=== PATIENT | male | born 1955 | race American Indian/Alaskan Native ===

== ENCOUNTER 2016-09-20 22:39 | Inpatient (IN) | payer MEDICAID ==
[2016-09-20] MEDS ORDERED: NACL 0.9% 1000 ML 1,000 ML IV ONE (23:42)
[2016-09-21 00:09] LABS: Mean Corpuscular HGB Conc 30 % (32-34); Mean Corpuscular Volume 75 fl (84-94); Platelet Count 322 K/mm3 (140-440); Red Blood Count 4.69 M/mm3 (3.65-5.03)
[2016-09-21 00:15] LABS: Hematocrit 35.3 % (35.5-45.6); Hemoglobin 10.6 gm/dl (11.8-15.2); Mean Corpuscular Hemoglobin 23 pg (28-32); Red Cell Distribution Width 26.1 % (13.2-15.2); White Blood Count 20.9 K/mm3 (4.5-11.0)
[2016-09-21 00:19] LABS: INR 1.26 (0.87-1.13)
[2016-09-21 00:20] LABS: Partial Thromboplastin Time 30.1 Sec. (24.2-36.6)
[2016-09-21 00:23] LABS: Albumin 2.7 g/dL (3.9-5); Albumin/Globulin Ratio 0.6 %; BUN/Creatinine Ratio 38.75; Bilirubin,Total 0.2 mg/dL (0.1-1.2); Calcium 9.3 mg/dL (8.4-10.2); Chloride 108.7 mmol/L (98-107); Potassium 3.8 mmol/L (3.6-5.0); Total Protein 7.4 g/dL (6.3-8.2)
[2016-09-21] MEDS ORDERED: NACL 0.9% 1000 ML 1,000 ML IV ONE ×2 (00:42→02:16)
[2016-09-21] MEDS ORDERED: ROCEPHIN/NS 2 GM/100 ML 2 GM/100 ML BAG IV ONE (00:56)
--- NOTE | 2016-09-21 01:03 | Emergency Department Report ---
HPI - General Chief Complaint: Nausea/Vomiting/Diarrhea Time Seen by Provider: 09/20/16 23:27 - HPI HPI: This is a 61-year-old -[place] male from [facility] in rehabilitation center, sent to ER for chest x-ray showing right lower lobe infiltrate, and a WBC of 18. Patient is aphasic, bedbound, with nephrostomy tube and G-tube. Patient has complicated medical history, has A. fib on anticoagulation with xarelto. [facility] also had some concern about patient having frequent diarrhea, but no vomiting. ED Past Medical Hx - Past Medical History Previous Medical History?: Yes Hx Diabetes: Yes Hx Renal Disease: Yes (End Stage Renal Disease) Hx Psychiatric Treatment: Yes (Mood disorders) Additional medical history: Unspecified Atrial Fibrillation, Constipation, Gastrostomy Tube, Nephrostomy Tube, Hyperlipidemia, Insomnia, Peg Tube, Nonverbal - Social History Smoking Status: Unknown if ever smoked - Medications Home Medications: Home Medications Medication Instructions Recorded Confirmed Last Taken Type Amiodarone [Cordarone 200 MG TAB] 200 mg PO DAILY 09/20/16 09/20/16 Unknown History Aspirin [Aspirin BABY CHEW TAB] 81 mg PO QDAY 09/20/16 09/20/16 Unknown History AtorvaSTATin [Lipitor] 20 mg PO QHS 09/20/16 09/20/16 Unknown History Bisacodyl [Dulcolax suppos] 10 mg DC QDAY 09/20/16 09/20/16 Unknown History Carvedilol [Coreg] 12.5 mg PO BID 09/20/16 09/20/16 Unknown History Cholestyramine (with Sugar) 378 gm PO BID 09/20/16 09/20/16 Unknown History [Cholestyramine Powder] Diltiazem [CarDIZEM] 60 mg PO QID 09/20/16 09/20/16 Unknown History Insulin Aspart [NovoLOG Flexpen] 0 units SQ ACHS 09/20/16 09/20/16 Unknown History Ipratropium [Atrovent] 0.5 mg IH Q6HRT 09/20/16 09/20/16 Unknown History Pantoprazole [Protonix] 40 mg PO QDAY 09/20/16 09/20/16 Unknown History Rivaroxaban [Xarelto] 10 mg PO QDAY 09/20/16 09/20/16 Unknown History Sertraline HCl [Zoloft] 50 mg PO DAILY 09/20/16 09/20/16 Unknown History metFORMIN [Glucophage] 500 mg PO QDAY 09/20/16 09/20/16 Unknown History traMADol [Ultram] 50 mg PO Q8HR PRN 09/20/16 09/20/16 Unknown History ED Review of Systems ROS: Stated complaint: POSSIBLE SEPSIS Other details as noted in HPI Comment: Unobtainable due to pts medical conditions Physical Exam - Physical Exam Vital Signs: Vital Signs 09/20/16 09/21/16 23:28 00:29 Temperature 97.8 F Pulse Rate 99 H Respiratory 20 20 Rate Blood Pressure 103/66 O2 Sat by Pulse 99 99 Oximetry Physical Exam: Gen. Awake Head atraumatic normocephalic Eyes PERR LA EOMI Chest irregularly irregular lungs clear bilaterally Abdomen soft nondistended, G-tube in place, D, C, I Back no point tenderness paravertebral tenderness Neuro unable to assess due to poor mentation Psych normal mood. ED Course Vital Signs 09/20/16 09/21/16 23:28 00:29 Temperature 97.8 F Pulse Rate 99 H Respiratory 20 20 Rate Blood Pressure 103/66 O2 Sat by Pulse 99 99 Oximetry ED Medical Decision Making - Lab Data Result diagrams: 09/20/16 23:42 09/20/16 23:42 Critical care attestation.: If time is entered above; I have spent that time in minutes in the direct care of this critically ill patient, excluding procedure time. ED Disposition Clinical Impression: Pneumonia Disposition: DC-09 OP ADMIT IP TO THIS HOSP Is pt being admited?: Yes Does the pt Need Aspirin: No Condition: Stable Instructions: Bacterial Pneumonia (ED) Referrals: REGINA BALLESTEROS MD [Primary Care Provider] - 3-5 Days
[2016-09-21 01:39] LABS: Anisocytosis 3+; Basophils % (Manual) 0 % (0.0-1.8); Blastocytes % (Manual) 0 %; Eosinophils % (Manual) 0 % (0.0-4.3); Hypochromasia 1+
[2016-09-21 01:40] LABS: Diff Status Complete; Elliptocytes Few; Platelet Estimate Consistent w Auto
[2016-09-21] MEDS ORDERED: FLAGYL/NS 1000 MG-200 ML 1,000 MG in VIAFLEX EMPTY CONTAINER 0 ML IV SCH (02:00)
[2016-09-21] MEDS: NACL 0.9% 1000 ML 1,000 ML IV SCH ×2 (02:29→14:35)
[2016-09-21] MEDS ORDERED: TYLENOL PO PRN (03:45)
[2016-09-21] MEDS ORDERED: ZOFRAN IV PRN (03:45)
--- NOTE | 2016-09-21 03:54 | History and Physical Report ---
History of Present Illness Date of examination: 09/21/16 History of present illness: This is a 61-year-old man from the residential, nonverbal, history of A. fib, diabetes, ?renal disease, mood disorder was sent to the emergency room for evaluation of fever. his white count on the second of this month was 13.5. He' s been having diarrhea since he's been in the emergency room .review of system is unobtainable PAST MEDICAL HISTORY:A. 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 Medications and Allergies Allergies Allergy/AdvReac Type Severity Reaction Status Date / Time No Known Allergies Allergy Unverified 09/20/16 23:22 Home Medications Medication Instructions Recorded Confirmed Last Taken Type Carvedilol [Coreg] 25 mg PO BID #60 tablet 11/25/14 05/26/16 1 Day Ago Rx Warfarin [Coumadin] 7.5 mg PO QDAY #30 tablet 11/25/14 05/26/16 1 Day Ago Rx metFORMIN [Glucophage] 500 mg PO QDAY #30 tab 11/25/14 05/27/16 1 Week Ago Rx Lisinopril/Hydrochlorothiazide 1 tab PO QDAY 11/05/15 05/26/16 1 Day Ago History [Zestoretic 20-12.5 mg] Sertraline HCl [Zoloft] 50 mg PO DAILY 11/05/15 05/26/16 1 Day Ago History amLODIPine [Norvasc] 5 mg PO DAILY 11/05/15 05/26/16 1 Day Ago History cloNIDine [Catapres] 0.2 mg PO BID 11/05/15 05/26/16 1 Day Ago History Aspirin [Aspirin TAB] 325 mg PO QDAY #30 tablet 06/01/16 Unknown Rx Bisacodyl [Dulcolax suppos] 10 mg SC QDAY PRN #30 supp.rect 06/01/16 Unknown Rx Carvedilol [Coreg] 25 mg PO BID #30 tablet 06/01/16 Unknown Rx Hydrochlorothiazide [HCTZ] 12.5 mg PO QDAY capsule 06/01/16 Unknown Rx Pantoprazole [Protonix TAB] 40 mg PO DAILY tablet 06/01/16 Unknown Rx Sertraline [Zoloft] 50 mg PO QDAY tablet 06/01/16 Unknown Rx Simvastatin [Zocor TAB] 40 mg PO QHS #30 tablet 06/01/16 Unknown Rx amLODIPine [Norvasc] 5 mg PO DAILY #30 tablet 06/01/16 Unknown Rx cloNIDine [Catapres] 0.2 mg PO BID #30 tablet 06/01/16 Unknown Rx metFORMIN [Glucophage] 500 mg PO QDDIAB tablet 06/01/16 Unknown Rx Amiodarone [Cordarone 200 MG TAB] 200 mg PO DAILY 09/20/16 09/20/16 Unknown History Aspirin [Aspirin BABY CHEW TAB] 81 mg PO QDAY 09/20/16 09/20/16 Unknown History AtorvaSTATin [Lipitor] 20 mg PO QHS 09/20/16 09/20/16 Unknown History Bisacodyl [Dulcolax suppos] 10 mg SC QDAY 09/20/16 09/20/16 Unknown History Carvedilol [Coreg] 12.5 mg PO BID 09/20/16 09/20/16 Unknown History Cholestyramine (with Sugar) 378 gm PO BID 09/20/16 09/20/16 Unknown History [Cholestyramine Powder] Diltiazem [CarDIZEM] 60 mg PO QID 09/20/16 09/20/16 Unknown History Insulin Aspart [NovoLOG Flexpen] 0 units SQ ACHS 09/20/16 09/20/16 Unknown History Ipratropium [Atrovent] 0.5 mg IH Q6HRT 09/20/16 09/20/16 Unknown History Pantoprazole [Protonix] 40 mg PO QDAY 09/20/16 09/20/16 Unknown History Rivaroxaban [Xarelto] 10 mg PO QDAY 09/20/16 09/20/16 Unknown History Sertraline HCl [Zoloft] 50 mg PO DAILY 09/20/16 09/20/16 Unknown History metFORMIN [Glucophage] 500 mg PO QDAY 09/20/16 09/20/16 Unknown History traMADol [Ultram] 50 mg PO Q8HR PRN 09/20/16 09/20/16 Unknown History Active Meds: Active Medications Acetaminophen (Tylenol) 650 mg PO Q4H PRN PRN Reason: Pain MILD(1-3)/Fever >100.5/NATARAJAN Enoxaparin Sodium (Lovenox) 30 mg SUB-Q QDAY LAILA Sodium Chloride (Nacl 0.9% 1000 Ml) 1,000 mls @ 100 mls/hr IV DIRECT LAILA Last Admin: 09/21/16 02:29 Dose: 100 mls/hr Sodium Chloride (Nacl 0.9% 1000 Ml) 1,000 mls @ 125 mls/hr IV ONCE ONE Stop: 09/21/16 10:15 Last Admin: 09/21/16 02:17 Dose: Not Given Metronidazole (Flagyl) 500 mg FEEDTUBE Q8H LAILA Ondansetron HCl (Zofran) 4 mg IV Q8H PRN PRN Reason: N/V unrelieved by Reglan Exam - Physical Exam Narrative exam: Gen. appearance: Patient lying in bed, no apparent distress HEENT: Normocephalic, atraumatic, pupils equally round and reactive to light, extraocular movement intact, and no sclericterus,. No JVD or thyromegaly or nodule,neck supple, no carotid bruit ,mucous membranes moist, no exudate or erythema Heart: S1, S2, regular rate and rhythm Lungs: Clear to auscultation bilaterally, breathing comfortable Abdomen: Positive bowel sounds, nontender, +peg, nondistended, no organomegaly Extremity: Nephrostomy tube, No edema, cyanosis, clubbing Skin: No rash, nodules, warm, dry Neuro nonverbal, difficult to assess - Constitutional Vitals: Temp Pulse Resp BP Pulse Ox 97.8 F 81 20 93/61 100 09/20/16 23:28 09/21/16 01:00 09/21/16 01:00 09/21/16 01:00 09/21/16 01:00 Results - Labs CBC & Chem 7: 09/22/16 03:58 09/22/16 03:58 Labs: Abnormal lab results 09/20/16 09/20/16 09/20/16 Range/Units 23:42 23:42 23:42 WBC 20.9 H (4.5-11.0) K/mm3 Hgb 10.6 L (11.8-15.2) gm/dl Hct 35.3 L (35.5-45.6) % MCV 75 L (84-94) fl MCH 23 L (28-32) pg MCHC 30 L (32-34) % RDW 26.1 H (13.2-15.2) % Seg Neuts % (Manual) 84.0 H (40.0-70.0) % Lymphocytes % (Manual) 7.0 L (13.4-35.0) % Seg Neutrophils # Man 17.6 H (1.8-7.7) K/mm3 PT (12.2-14.9) Sec. INR (0.87-1.13) Chloride 108.7 H (98-107) mmol/L Carbon Dioxide 8 L* (22-30) mmol/L BUN 93 H (9-20) mg/dL Creatinine 2.4 H (0.8-1.5) mg/dL Glucose 147 H (75-100) mg/dL Total Creatine Kinase 50 L (55-170) units/L Troponin T 0.037 H (0.00-0.029) ng/mL NT-Pro-B Natriuret Pep 2195 H (0-900) pg/mL Albumin 2.7 L (3.9-5) g/dL Triglycerides 164 H (2-149) mg/dL LDL Cholesterol Direct 43 L (50-130) mg/dL HDL Cholesterol 20 L (40-59) mg/dL // Range/Units 23:49 WBC (4.5-11.0) K/mm3 Hgb (11.8-15.2) gm/dl Hct (35.5-45.6) % MCV (84-94) fl MCH (28-32) pg MCHC (32-34) % RDW (13.2-15.2) % Seg Neuts % (Manual) (40.0-70.0) % Lymphocytes % (Manual) (13.4-35.0) % Seg Neutrophils # Man (1.8-7.7) K/mm3 PT 15.7 H (12.2-14.9) Sec. INR 1.26 H (0.87-1.13) Chloride (98-107) mmol/L Carbon Dioxide (22-30) mmol/L BUN (9-20) mg/dL Creatinine (0.8-1.5) mg/dL Glucose (75-100) mg/dL Total Creatine Kinase (55-170) units/L Troponin T (0.00-0.029) ng/mL NT-Pro-B Natriuret Pep (0-900) pg/mL Albumin (3.9-5) g/dL Triglycerides (2-149) mg/dL LDL Cholesterol Direct (50-130) mg/dL HDL Cholesterol (40-59) mg/dL - Imaging and Cardiology Chest x-ray: image reviewed Assessment and Plan Assessment SIRS Diarrhea, rule out C. difficile Abnormal cardiac enzymes ?Renal Disease A. fib Diabetes type 2 Mood Disorder Plan Admit to medicine Start gentle IV fluid, check stool for C. difficile Start Flagyl, follow cultures Check cardiac enzymes, echo Check fingersticks and initiate insulin sliding scale Obtain ultrasound of the kidneys Start DVT prophylaxis
[2016-09-21] MEDS ORDERED: FLAGYL FEEDTUBE SCH (04:00)
[2016-09-21 06:34] LABS: Creatine Kinase MB 1.6 ng/mL (0.0-4.0)
--- NOTE | 2016-09-21 08:28 | Admit Criteria Form ---
Admission Criteria Documentation: GASTROENTEROLOGY GRG Clinical Indications for Admission to Inpatient Care ([place]/ check or initial the applicable condition/criteria) Hospital admission is needed for appropriate care of the patient because of ANY ONE of the following: I. Suspected acute intra-abdominal process indicated by 1 or more of the following(1)(2)(3)(4)(5): a) Hemodynamic instability b) Peritoneal signs present (eg, abdominal rigidity, rebound tenderness, absent bowel sounds) c) Bowel obstruction suspected (eg, persistent vomiting, abdominal distention )(6)(7)(8) d) Suspected mesenteric ischemia or ischemic colitis(9)(10)(11) e) Other signs or symptoms of acute abdominal disease (eg, severe pain, free air)(12) II. Hemoperitoneum(13)(14) III. Ascites requiring acute treatment indicated by 1 or more of the following ( 15)(16)(17)(18) a) Hemodynamic instability b) Peritoneal signs present (e.g., abdominal rigidity, rebound tenderness, absent bowel sounds) c) Tachypnea, Hypoxemia,or other respiratory symptoms remain after emergency or observation level care (as appropriate) d) Suspected infected ascites as indicated by 1 or more of the following(19) (20) i) Fever ii) Vital sign abnormality iii) Abdominal pain or tenderness not relieved by paracentesis iv) Systemic signs of infection (e.g., elevated WBC count, fever) v) Ascitic fluid analysis consistent with infection ( e.g., elevated WBC count) IV. Severe liver disease indicated by 1 or more of the following (15)(16)(21)(22 )(23)(24)(25)(26)(27)(28) a) Acute hepatitis (e.g., transaminaselevel greater than 1000 IU/L) b) Acute elevation of prothrombintime to more than 50% above normal or INR greater than 1.5 c) Bilirubin greater than 20 mg/dL (342 micromoles/L) d) New-onset or worseninghepatic encephalopathy e) Acute elevation of serum ammonia level (eg, greater than 210 mcg/dL ( 150 micromoles/L)) f) Acute liver necrosis g) Vomiting that is severe of persistent h) Hemodynamic instability due to liver disease i) Acute renal failure j) Hepatic abscess k) Hepatic hydrothorax(29) l) Other indications of severe liver disease (e.g., persistent fever, ingestion of hepatotoxin)(30) V. Dehydration that is severe or persistent [X]-. Severe diarrhea indicated by 1 or more of the following (31)(32)(33)(34) (35) : a) High fever or other high-risk infection situation b) Intractable bloody diarrhea (e.g., more than 6 bloody stools per day) [X]- c) Suspected etiology (Clostridiumdifficile-associated diarrhea) that requires isolation or care not feasible in outpatient setting (36) d) Altered mental status that is severe or persistent e) Dehydration that is severe or persistent g) Peritoneal signs present (e.g., abdominal rigidity, rebound tenderness , absent bowel sounds) h) Abdominal ischemia suspected (9)(10)(11) i) Hemodynamic instability j) Severe electrolyte abnormalities requiring inpatient care k) Acute renal failure VII. Suspected toxic mike colon(4)(9) VIII. Severe dysphagia indicated by 1 or more of the following(37)(38) a) Suspected esophageal perforation or fistula(39) b) Suspected cause that requires inpatient care (e.g., caustic ingestion , severe esophagitis) (40)(41) c) Dehydration that is severe or persistent d) Inability to manage secretions or maintain hydration e) Hemodynamic instability f) Severe electrolyte abnormalities requiring inpatient care g) Acute renal failure IX. Vomiting and 1 or more of the following (42)(43)(44)(45)(46) a) High fever or other high-risk infection situation b) Altered mental status that is severe or persistent c) Dehydration that is severe or persistent d) Peritoneal signs present (e.g., abdominal rigidity, rebound tenderness, absent bowel sounds) e) Hemodynamic instability f) Severe electrolyte abnormalities requiring inpatient care g) Acute renal failure h) Bowel obstruction suspected (e.g., severe vomiting, abdominal distension) i) Vomiting that is severe or persistent X. Gastroparesis and 1 or more of the following(46)(47)(48)(49): a) Dehydration that is severe or persistent b) Severe electrolyte abnormalities requiring inpatient care c) Acute renal failure d) Vomiting that is severe or persistent XI Obstipation and 1 or more of the following(50)(51)(52)(53) a) Complication of fecal impaction (eg, stercoral ulceration, perforation, venous compression, obstructive uropathy) b) Fecal disimpaction by digital fragmentation or mechanical disimpaction unsuccessful XII Complication of gastrostomy or jejunostomy feeding tube(54)(55)(56) a) Luminal perforation b) Gastrocolonic fistula c) Cellulitis of surrounding area with failure of outpatient treatment d) Necrotizing fasciitis e) Peritonitis f) Gastric herniation or prolapse g) Ischemic necrosis of gastric wall ("buried bumper") h) Other complication of gastrostomy or jejunostomy unable to be resolved at lower level of care XII. Complications of transplanted liver indicated by 1 or more of the following (57)(58)(59): a) Acute graft rejection requiring inpatient management (eg, intravenous immuno suppression)(60)(61) b) Failure of transplanted liver as indicated by 1 or more of the following: i. Acute hepatitis (eg, transaminase level greater than 1000 International Units per liter (IU/L)) ii. Acute elevation of prothrombin time to more than 50% above baseline or INR greater than 1.5 iii. Bilirubin greater than 20 mg/dL (342 micromoles/L) iv. New-onset or worsening hepatic encephalopathy v. Acute elevation of serum ammonia level (eg, greater than 210 mcg/dL (150 micromoles/L)) vi. Acute liver necrosis c) Infection requiring inpatient management (eg, Hemodynamic instability, need for intravenous antimicrobial treatment) (62)(63)(64)(65)(66) d) Other complication of transplanted liver (eg, thrombosis, autoimmune hepatitis, variceal bleeding) requiring inpatient management (67)(68)(69) XII. Complications of transplanted pancreas indicated by 1 or more of the following (70) a) Acute graft rejection requiring inpatient management (eg, intravenous immunosuppression)(60)(71) b) Failure of transplanted pancreas as indicated by 1 or more of the following: i. Serum amylase greater than 3 times the upper limit of normal or baseline ii. Serum lipase greater than 3 times the upper limit of normal or baseline iii. Imaging findings consistent with pancreatic inflammation or necrosis c) Infection requiring inpatient management (eg, Hemodynamic instability, need for intravenous antimicrobial treatment) (64)(65)(66) d) Other complication of transplanted pancreas (eg, graft thrombosis, pancreatic duct stricture, anastomotic leak) requiring inpatient management (72 ) XIII. Gastroenterology condition,Symptom or finding for which emergency and observation care have failed or are not considered appropriate. See General criteria: Observation care, General Admission criteria or Pediatric General Admission criteria guideline as appropriate. The original [facility] content created by [facility] has been revised. The portions of the content which have been revised are identified through the use of italic text or in bold,and [facility] has neither reviewed nor approved the modified material. All other unmodified content is copyright [facility]. Please see references footnoted in the original [facility] edition 2017 Admission Criteria Met: Yes
--- NOTE | 2016-09-21 08:32 | XRay Report ---
PORTABLE CHEST INDICATION: Chest pain. Unspecified atrial fibrillation, constipation, gastrostomy tube, nephrostomy tube, hyperlipidemia, insomnia, PEG tube, end-stage renal disease. COMPARISON: None similar at this institution. FINDINGS: Portable, frontal chest radiographs, 2 images, demonstrate limited inspiration with mild exaggerated cardiomediastinal silhouette. Left lung base/hemidiaphragm fairly well seen on one of the views. Clear remainder lungs without pleural effusion or CHF as well. Slight aortic knob calcific lesions. EKG leads. Intact bones. CONCLUSION: No definite acute chest process, as described. Please also correlate clinically and follow on subsequent PA and lateral views, if available. Thank you for the opportunity to participate in this patient's care.
--- NOTE | 2016-09-21 09:49 | Ultrasound Report ---
ULTRASOUND RENAL BILATERAL HISTORY: Acute renal failure. TECHNIQUE: transabdominal ultrasound with color Doppler interrogation. FINDINGS: The right kidney measures 11.5 x 4.1 x 5.0cm. Right renal cortex: 1.4cm. The left kidney measures 10.1 x 5.6 x 5.9cm. Left renal cortex: 1.5cm. Scans of the kidneys show normal renal contours. There is normal central calyceal clustering and good preservation of the cortical thickness. There is no evidence of mass or hydronephrosis. A linear echogenic structure near the inferior pole of the right kidney is consistent with a right nephrostomy tube. The views of the bladder and the region of the ureters appear normal. IMPRESSION: Unremarkable renal ultrasound. No obstructive uropathy. Right nephrostomy tube is partially imaged.
[2016-09-21] MEDS ORDERED: LOVENOX SUB-Q SCH (10:00)
[2016-09-21] MEDS: FLAGYL FEEDTUBE SCH ×2 (11:14→17:36)
[2016-09-21 12:05] LABS: Creatine Kinase MB 1.7 ng/mL (0.0-4.0)
--- NOTE | 2016-09-21 13:17 | Progress Note ---
Assessment and Plan Assessment and plan: Admitted today by Dr. Kennedy Patient 61-year-old man from [facility] with a history of hypertension, A. fib, diabetes mellitus and questionable history of end-stage renal disease who presented to emergency department with diarrhea and was found Positive for C. difficile -Sepsis not SIRS present on admission due to C. difficile: Treatment with Flagyl History Interval history: Patient seen and examined. Follow up on current diagnosis/diarrhea. Overnight uneventful. Nonverbal. Imaging, old records, testing, labs, nursing notes reviewed. Hospitalist Physical - Physical exam Narrative exam: GEN: Chronically debilitated NAD, AWAKE, ALERT, but nonverbal HEENT: NCAT, PERRL, EOMI, OP CLEAR NECK: SUPPLE, NO THYROMEGALY, NO JVD, NO LAD CVS: RRR, NORMAL S1S2 LUNGS/CHEST: CTA B, NORMAL CHEST EXPANSION B, GOOD AIR ENTRY B ABD: SOFT, diffuse tenderness, nondistended GBS, NO REBOUND OR GUARDING EXT/SKIN: NO SIGNIFICANT EDEMA OR RASH MSK: FROM X 4 EXTREMITIES NEURO: CN 2-12 GROSSLY INTACT, NO NEW FOCAL DEFICITS PSY: CALM - Constitutional Vitals: Temp Pulse Resp BP Pulse Ox 99.2 F 84 24 123/66 100 09/21/16 07:59 09/21/16 07:59 09/21/16 07:59 09/21/16 07:59 09/21/16 07:59 Results - Labs CBC & Chem 7: 09/20/16 23:42 09/20/16 23:42 Labs: Laboratory Last Values WBC 20.9 K/mm3 (4.5-11.0) H 09/20/16 23:42 RBC 4.69 M/mm3 (3.65-5.03) 09/20/16 23:42 Hgb 10.6 gm/dl (11.8-15.2) L 09/20/16 23:42 Hct 35.3 % (35.5-45.6) L 09/20/16 23:42 MCV 75 fl (84-94) L 09/20/16 23:42 MCH 23 pg (28-32) L 09/20/16 23:42 MCHC 30 % (32-34) L 09/20/16 23:42 RDW 26.1 % (13.2-15.2) H 09/20/16 23:42 Plt Count 322 K/mm3 (140-440) 09/20/16 23:42 Add Manual Diff Complete 09/20/16 23:42 Total Counted 100 09/20/16 23:42 Seg Neuts % (Manual) 84.0 % (40.0-70.0) H 09/20/16 23:42 Band Neutrophils % 5.0 % 09/20/16 23:42 Lymphocytes % (Manual) 7.0 % (13.4-35.0) L 09/20/16 23:42 Reactive Lymphs % (Man) 0 % 09/20/16 23:42 Monocytes % (Manual) 4.0 % (0.0-7.3) 09/20/16 23:42 Eosinophils % (Manual) 0 % (0.0-4.3) 09/20/16 23:42 Basophils % (Manual) 0 % (0.0-1.8) 09/20/16 23:42 Metamyelocytes % 0 % 09/20/16 23:42 Myelocytes % 0 % 09/20/16 23:42 Promyelocytes % 0 % 09/20/16 23:42 Blast Cells % 0 % 09/20/16 23:42 Nucleated RBC % Not Reportable 09/20/16 23:42 Seg Neutrophils # Man 17.6 K/mm3 (1.8-7.7) H 09/20/16 23:42 Band Neutrophils # 1.0 K/mm3 09/20/16 23:42 Lymphocytes # (Manual) 1.5 K/mm3 (1.2-5.4) 09/20/16 23:42 Abs React Lymphs (Man) 0.0 K/mm3 09/20/16 23:42 Monocytes # (Manual) 0.8 K/mm3 (0.0-0.8) 09/20/16 23:42 Eosinophils # (Manual) 0.0 K/mm3 (0.0-0.4) 09/20/16 23:42 Basophils # (Manual) 0.0 K/mm3 (0.0-0.1) 09/20/16 23:42 Metamyelocytes # 0.0 K/mm3 09/20/16 23:42 Myelocytes # 0.0 K/mm3 09/20/16 23:42 Promyelocytes # 0.0 K/mm3 09/20/16 23:42 Blast Cells # 0.0 K/mm3 09/20/16 23:42 WBC Morphology Not Reportable 09/20/16 23:42 Hypersegmented Neuts Not Reportable 09/20/16 23:42 Hyposegmented Neuts Not Reportable 09/20/16 23:42 Hypogranular Neuts Not Reportable 09/20/16 23:42 Smudge Cells Not Reportable 09/20/16 23:42 Toxic Granulation Not Reportable 09/20/16 23:42 Toxic Vacuolation Not Reportable 09/20/16 23:42 Dohle Bodies Not Reportable 09/20/16 23:42 Pelger-Huet Anomaly Not Reportable 09/20/16 23:42 [place] Rods Not Reportable 09/20/16 23:42 Platelet Estimate Consistent w auto 09/20/16 23:42 Clumped Platelets Not Reportable 09/20/16 23:42 Plt Clumps, EDTA Not Reportable 09/20/16 23:42 Large Platelets Not Reportable 09/20/16 23:42 Giant Platelets Not Reportable 09/20/16 23:42 Platelet Satelliting Not Reportable 09/20/16 23:42 Plt Morphology Comment Not Reportable 09/20/16 23:42 RBC Morphology Not Reportable 09/20/16 23:42 Dimorphic RBCs Not Reportable 09/20/16 23:42 Polychromasia Not Reportable 09/20/16 23:42 Hypochromasia 1+ 09/20/16 23:42 Poikilocytosis Not Reportable 09/20/16 23:42 Anisocytosis 3+ 09/20/16 23:42 Microcytosis Not Reportable 09/20/16 23:42 Macrocytosis Not Reportable 09/20/16 23:42 Spherocytes Not Reportable 09/20/16 23:42 Pappenheimer Bodies Not Reportable 09/20/16 23:42 Sickle Cells Not Reportable 09/20/16 23:42 Target Cells Not Reportable 09/20/16 23:42 Tear Drop Cells Not Reportable 09/20/16 23:42 Ovalocytes Not Reportable 09/20/16 23:42 Helmet Cells Not Reportable 09/20/16 23:42 [place] Bodies Not Reportable 09/20/16 23:42 [place] Rings Not Reportable 09/20/16 23:42 [place] Cells Not Reportable 09/20/16 23:42 Bite Cells Not Reportable 09/20/16 23:42 Crenated Cell Not Reportable 09/20/16 23:42 Elliptocytes Few 09/20/16 23:42 Acanthocytes (Spur) Not Reportable 09/20/16 23:42 Rouleaux Not Reportable 09/20/16 23:42 Hemoglobin C Crystals Not Reportable 09/20/16 23:42 Schistocytes Not Reportable 09/20/16 23:42 Malaria parasites Not Reportable 09/20/16 23:42 Arcenio Bodies Not Reportable 09/20/16 23:42 Hem Pathologist Commnt No 09/20/16 23:42 PT 15.7 Sec. (12.2-14.9) H 09/20/16 23:49 INR 1.26 (0.87-1.13) H 09/20/16 23:49 APTT 30.1 Sec. (24.2-36.6) 09/20/16 23:49 Sodium 140 mmol/L (137-145) 09/20/16 23:42 Potassium 3.8 mmol/L (3.6-5.0) 09/20/16 23:42 Chloride 108.7 mmol/L (98-107) H 09/20/16 23:42 Carbon Dioxide 8 mmol/L (22-30) L* 09/20/16 23:42 Anion Gap 27 mmol/L 09/20/16 23:42 BUN 93 mg/dL (9-20) H 09/20/16 23:42 Creatinine 2.4 mg/dL (0.8-1.5) H 09/20/16 23:42 Estimated GFR 33 ml/min 09/20/16 23:42 BUN/Creatinine Ratio 38.75 % 09/20/16 23:42 Glucose 147 mg/dL (75-100) H 09/20/16 23:42 POC Glucose 137 (70-105) H 09/21/16 11:33 Lactic Acid 0.90 mmol/L (0.7-2.0) 09/21/16 01:03 Calcium 9.3 mg/dL (8.4-10.2) 09/20/16 23:42 Total Bilirubin 0.20 mg/dL (0.1-1.2) 09/20/16 23:42 AST 13 units/L (5-40) 09/20/16 23:42 ALT 13 units/L (7-56) 09/20/16 23:42 Alkaline Phosphatase 73 units/L (35-129) 09/20/16 23:42 Total Creatine Kinase 53 units/L (55-170) L 09/21/16 11:23 CK-MB (CK-2) 1.7 ng/mL (0.0-4.0) 09/21/16 11:23 CK-MB (CK-2) Rel Index 3.2 (0-4) 09/21/16 11:23 Troponin T 0.033 ng/mL (0.00-0.029) H 09/21/16 11:23 NT-Pro-B Natriuret Pep 2195 pg/mL (0-900) H 09/20/16 23:42 Total Protein 7.4 g/dL (6.3-8.2) 09/20/16 23:42 Albumin 2.7 g/dL (3.9-5) L 09/20/16 23:42 Albumin/Globulin Ratio 0.6 % 09/20/16 23:42 Triglycerides 164 mg/dL (2-149) H 09/20/16 23:42 Cholesterol 95 mg/dL (50-199) 09/20/16 23:42 LDL Cholesterol Direct 43 mg/dL (50-130) L 09/20/16 23:42 HDL Cholesterol 20 mg/dL (40-59) L 09/20/16 23:42 Cholesterol/HDL Ratio 4.75 % 09/20/16 23:42
[2016-09-21] MEDS: XARELTO PO SCH (14:48)
[2016-09-21] MEDS: BABY ASPIRIN PO SCH (14:48)
--- NOTE | 2016-09-21 16:49 | Consultation ---
History of Present Illness - Reason for Consult Consult date: 09/21/16 acute renal failure, chronic renal failure, metabolic acidosis Requesting physician: KRUPA KNOX - History of Present Illness This is a 61-year-old man from the group home, nonverbal, history of A. fib, diabetes, ?renal disease, mood disorder was sent to the emergency room for evaluation of fever. his white count on the second of this month was 13.5. He' s been having diarrhea since he's been in the emergency room .review of system is unobtainable PAST MEDICAL HISTORY:A. 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 tobacco, alcohol, drug Medications and Allergies Allergies Allergy/AdvReac Type Severity Reaction Status Date / Time No Known Allergies Allergy Unverified 09/20/16 23:22 Home Medications Medication Instructions Recorded Confirmed Last Taken Type Amiodarone [Cordarone 200 MG TAB] 200 mg PO DAILY 09/20/16 09/20/16 Unknown History Aspirin [Aspirin BABY CHEW TAB] 81 mg PO QDAY 09/20/16 09/20/16 Unknown History AtorvaSTATin [Lipitor] 20 mg PO QHS 09/20/16 09/20/16 Unknown History Bisacodyl [Dulcolax suppos] 10 mg RI QDAY 09/20/16 09/20/16 Unknown History Carvedilol [Coreg] 12.5 mg PO BID 09/20/16 09/20/16 Unknown History Cholestyramine (with Sugar) 378 gm PO BID 09/20/16 09/20/16 Unknown History [Cholestyramine Powder] Diltiazem [CarDIZEM] 60 mg PO QID 09/20/16 09/20/16 Unknown History Insulin Aspart [NovoLOG Flexpen] 0 units SQ ACHS 09/20/16 09/20/16 Unknown History Ipratropium [Atrovent] 0.5 mg IH Q6HRT 09/20/16 09/20/16 Unknown History Pantoprazole [Protonix] 40 mg PO QDAY 09/20/16 09/20/16 Unknown History Rivaroxaban [Xarelto] 10 mg PO QDAY 09/20/16 09/20/16 Unknown History Sertraline HCl [Zoloft] 50 mg PO DAILY 09/20/16 09/20/16 Unknown History metFORMIN [Glucophage] 500 mg PO QDAY 09/20/16 09/20/16 Unknown History traMADol [Ultram] 50 mg PO Q8HR PRN 09/20/16 09/20/16 Unknown History Active Meds: Active Medications Acetaminophen (Tylenol) 650 mg PO Q4H PRN PRN Reason: Pain MILD(1-3)/Fever >100.5/NATARAJAN Amiodarone HCl (Cordarone) 200 mg PO DAILY [facility] Aspirin (Baby Aspirin) 81 mg PO QDAY [facility] Last Admin: 09/21/16 14:48 Dose: 81 mg Atorvastatin Calcium (Lipitor) 20 mg PO QHS [facility] Bisacodyl (Dulcolax) 10 mg RI QDAY [facility] Carvedilol (Coreg) 12.5 mg PO BID [facility] Cholestyramine Resin (Questran) 4 gm PO BID [facility] Diltiazem HCl (Cardizem) 60 mg PO QID [facility] Sodium Bicarbonate 75 meq/ (Sodium Chloride) 1,075 mls @ 100 mls/hr IV DIRECT [facility] Ipratropium [place] (Atrovent) 0.5 mg IH Q6HRT [facility] Metformin HCl (Glucophage) 500 mg PO QDAY [facility] Metronidazole (Flagyl) 500 mg FEEDTUBE Q8H [facility] Last Admin: 09/21/16 11:14 Dose: 500 mg Ondansetron HCl (Zofran) 4 mg IV Q8H PRN PRN Reason: N/V unrelieved by Erna Pantoprazole Sodium (Protonix) 40 mg PO QDAY [facility] Pneumococcal Polyvalent Vaccine (Pneumovax 23) 0.5 ml IM .ONCE ONE Stop: 09/22/16 12:01 Rivaroxaban (Xarelto) 10 mg PO QDAY [facility] PRN Reason: Protocol Last Admin: 09/21/16 14:48 Dose: 10 mg Sertraline HCl (Zoloft) 50 mg PO QDAY [facility] Tramadol HCl (Ultram) 50 mg PO Q8HR PRN PRN Reason: Pain Exam - Vital Signs Vital signs: Vital Signs Temp Pulse Resp BP Pulse Ox 97.8 F 99 H 20 103/66 99 09/20/16 23:28 09/20/16 23:28 09/20/16 23:28 09/20/16 23:28 09/20/16 23:28 - Physical Exam Narrative exam: Gen. appearance: Patient lying in bed, no apparent distress HEENT: Normocephalic, atraumatic, pupils equally round and reactive to light, extraocular movement intact, and no sclericterus,. No JVD or thyromegaly or nodule,neck supple, no carotid bruit ,mucous membranes moist, no exudate or erythema Heart: S1, S2, regular rate and rhythm Lungs: Clear to auscultation bilaterally, breathing comfortable Abdomen: Positive bowel sounds, nontender, +peg, nondistended, no organomegaly Extremity: Nephrostomy tube, No edema, cyanosis, clubbing Skin: No rash, nodules, warm, dry Neuro nonverbal, difficult to assess Results - Lab Results 09/20/16 23:42 09/20/16 23:42 Most recent lab results Calcium 9.3 mg/dL (8.4-10.2) 09/20/16 23:42 Assessment and Plan Impression: * KATHARINE on CKD * obstructive uropathy-s/p nephrostomy tube * metabolic acidosis * azotemia * volume depletion * diarrhea * c diff * sepsis * pyuria Plan: * ua with cultures * daily lytes renal us noted, right nephrotomy in place * strict i/os * avoid nephrotoxins * renal diet * add bicarb gtt * iv abx * dc metformin * iv fluids * ? baseline, katharine likely due to volume depletion in the setting of obstructive renal disease
[2016-09-21] MEDS: CARDIZEM PO SCH ×2 (17:37→22:26)
[2016-09-21] MEDS: CORDARONE PO SCH (17:41)
[2016-09-21] MEDS ORDERED: NACL 0.45% 1000 ML 1,000 ML with SODIUM BICARBONATE 75 MEQ IV SCH (18:00)
[2016-09-21 18:45] LABS: Calcium 9.1 mg/dL (8.4-10.2); Chloride 116.7 mmol/L (98-107); Potassium 3.7 mmol/L (3.6-5.0)
[2016-09-21] MEDS ORDERED: VANCOMYCIN/NS 1 GM/250 ML 1 GM/250 ML BAG IV ONE (18:58)
[2016-09-21] MEDS ORDERED: ATROVENT IH SCH (20:00)
[2016-09-21] MEDS: QUESTRAN PO SCH (22:24)
[2016-09-21] MEDS: ULTRAM PO PRN (22:25)
[2016-09-21] MEDS: COREG PO SCH (22:27)
[2016-09-22] MEDS: DUONEB *Not for PRN Use IH SCH ×4 (02:03→19:47)
[2016-09-22] MEDS: FLAGYL FEEDTUBE SCH ×4 (02:10→18:43)
[2016-09-22 04:23] LABS: Hematocrit 31.1 % (35.5-45.6); Hemoglobin 9.7 gm/dl (11.8-15.2); Mean Corpuscular HGB Conc 31 % (32-34); Mean Corpuscular Volume 75 fl (84-94); Platelet Count 281 K/mm3 (140-440); Red Blood Count 4.16 M/mm3 (3.65-5.03); White Blood Count 16.1 K/mm3 (4.5-11.0)
[2016-09-22 04:24] LABS: Mean Corpuscular Hemoglobin 23 pg (28-32); Red Cell Distribution Width 26.3 % (13.2-15.2)
[2016-09-22 04:36] LABS: BUN/Creatinine Ratio 39.09; Calcium 9.1 mg/dL (8.4-10.2); Chloride 115.8 mmol/L (98-107); Potassium 3.5 mmol/L (3.6-5.0)
[2016-09-22 05:25] LABS: Anisocytosis 3+; Basophils % (Manual) 0 % (0.0-1.8); Blastocytes % (Manual) 0 %; Diff Status Complete; Eosinophils % (Manual) 0 % (0.0-4.3); Hypochromasia 1+; Platelet Estimate Consistent w Auto; Schistocytes Rare
--- NOTE | 2016-09-22 07:31 | XRay Report ---
ROUTINE CHEST, TWO VIEWS: HISTORY: Right lower lobe pneumonia, shortness of breath. Compared to 09/20/16. The trachea, heart, mediastinal contour, lung ramos and bony thorax are unremarkable. IMPRESSION: Unremarkable chest x-ray. No infiltrate is identified.
--- NOTE | 2016-09-22 08:24 | Progress Note ---
Assessment and Plan Impression: * KATHARINE on CKD * obstructive uropathy-s/p nephrostomy tube * metabolic acidosis * azotemia * volume depletion * diarrhea * c diff * sepsis * pyuria * hypernatremia Plan: * ua with cultures pending, continue iv abx, purulent discharge noted * daily lytes renal us noted, right nephrotomy in place * strict i/os * avoid nephrotoxins * renal diet * added bicarb gtt * iv abx * dc metformin * iv fluids * ? baseline, katharine likely due to volume depletion in the setting of obstructive renal disease Subjective Date of service: 09/22/16 Principal diagnosis: katharine Interval history: resting in bed today Objective - Exam Narrative Exam: Gen. appearance: Patient lying in bed, no apparent distress HEENT: Normocephalic, atraumatic, pupils equally round and reactive to light, extraocular movement intact, and no sclericterus,. No JVD or thyromegaly or nodule,neck supple, no carotid bruit ,mucous membranes moist, no exudate or erythema Heart: S1, S2, regular rate and rhythm Lungs: Clear to auscultation bilaterally, breathing comfortable Abdomen: Positive bowel sounds, nontender, +peg, nondistended, no organomegaly Extremity: Nephrostomy tube, No edema, cyanosis, clubbing Skin: No rash, nodules, warm, dry Neuro nonverbal, difficult to assess - Vital Signs Vital signs: Vital Signs - 12hr 09/21/16 09/21/16 09/21/16 21:24 22:00 22:25 Temperature Pulse Rate Pulse Rate [ Anterior Bilateral Throughout] Pulse Rate [ 62 Apical] Respiratory 20 20 Rate Respiratory 18 Rate [Abdomen] Respiratory Rate [Anterior Bilateral Throughout] Respiratory 18 Rate [ Generalized] Blood Pressure O2 Sat by Pulse 99 96 Oximetry 09/21/16 09/21/16 09/21/16 22:26 22:27 23:00 Temperature 98.3 F Pulse Rate 86 86 86 Pulse Rate [ Anterior Bilateral Throughout] Pulse Rate [ Apical] Respiratory 18 Rate Respiratory Rate [Abdomen] Respiratory Rate [Anterior Bilateral Throughout] Respiratory Rate [ Generalized] Blood Pressure 138/68 138/68 136/68 O2 Sat by Pulse 100 Oximetry 09/21/16 09/22/16 09/22/16 23:25 02:04 02:08 Temperature Pulse Rate Pulse Rate [ 67 71 Anterior Bilateral Throughout] Pulse Rate [ Apical] Respiratory 18 Rate Respiratory Rate [Abdomen] Respiratory 20 20 Rate [Anterior Bilateral Throughout] Respiratory Rate [ Generalized] Blood Pressure O2 Sat by Pulse Oximetry 09/22/16 09/22/16 04:00 07:53 Temperature 97.8 F 98.2 F Pulse Rate 91 H 76 Pulse Rate [ Anterior Bilateral Throughout] Pulse Rate [ Apical] Respiratory 20 24 Rate Respiratory Rate [Abdomen] Respiratory Rate [Anterior Bilateral Throughout] Respiratory Rate [ Generalized] Blood Pressure 116/64 130/62 O2 Sat by Pulse 98 Oximetry - Lab 09/22/16 03:58 09/22/16 03:58 Most recent lab results Calcium 9.1 mg/dL (8.4-10.2) 09/22/16 03:58
[2016-09-22] MEDS ORDERED: GLUCOPHAGE PO SCH (10:00)
[2016-09-22] MEDS: D5W IV SCH (10:33)
[2016-09-22] MEDS: SODIUM BICARBONATE IV SCH (10:33)
[2016-09-22] MEDS: KCL IV SCH (10:33)
[2016-09-22] MEDS: BABY ASPIRIN PO SCH (10:37)
[2016-09-22] MEDS: CORDARONE PO SCH (10:37)
[2016-09-22] MEDS: ZOLOFT PO SCH (10:37)
[2016-09-22] MEDS: PROTONIX PO SCH (10:37)
[2016-09-22] MEDS: COREG PO SCH ×2 (10:38→22:45)
[2016-09-22] MEDS: XARELTO PO SCH (10:39)
[2016-09-22] MEDS: QUESTRAN PO SCH ×2 (10:39→22:46)
[2016-09-22] MEDS: CARDIZEM PO SCH ×4 (10:39→22:44)
[2016-09-22] MEDS: DULCOLAX PR SCH (10:40)
[2016-09-22 11:13] LABS: Bacteria,Urine 2+ /HPF (Negative); Bilirubin,Urine NEG (Negative); Blood,Urine NEG (Negative); Ketones,Urine NEG (Negative); Leukocyte Esterase,Urine TR (Negative); Mucus,Urine FEW /HPF; Nitrite,Urine NEG (Negative); Urobilinogen,Urine < 2.0 mg/dL (<2.0)
[2016-09-22] MEDS ORDERED: PNEUMOVAX 23 IM ONE (12:00)
[2016-09-22] MEDS: ULTRAM PO PRN (13:25)
--- NOTE | 2016-09-22 14:33 | Progress Note ---
Assessment and Plan Assessment and plan: Patient 61-year-old man from [facility] with a history of hypertension, A. 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 difficile colitis. -Sepsis instead of SIRS present on admission due to C. difficile: Treatment with Flagyl -ARF/CKD 3 due to vasomotor nephropathy, poa, ?baseline: Renal is following -Afib: consulted Cardiology, on Xarelto, echocardiogram pending -Diabetes mellitus type 2: Sliding scale insulin, start tube feedings, consulted dietitian -DVT prophylaxis: on Xarelto -Malnutrition albumin 2.7, present on admission: Consult dietitian -Bradycardia with atrial fibrillation, echocardiogram pending, consulted cardiology -Pyruria with nephrostomy tube on the right, no history: placed on iv Vancomycin by Nephrology, complex medical decision because other abx will make c.diffe worse, will consult ID History Interval history: Patient seen and examined. Follow up on current diagnosis/diarrhea. Overnight uneventful. Nonverbal. Imaging, old records, testing, labs, nursing notes reviewed. Finance Daphne at bedside. Hospitalist Physical - Physical exam Narrative exam: GEN: Chronically debilitated NAD, AWAKE, ALERT, but nonverbal HEENT: NCAT, PERRL, EOMI, OP CLEAR NECK: SUPPLE, NO THYROMEGALY, NO JVD, NO LAD CVS: irregular bradycardia, NORMAL S1S2 LUNGS/CHEST: CTA B, NORMAL CHEST EXPANSION B, GOOD AIR ENTRY B ABD: SOFT, diffuse tenderness, nondistended GBS, with PEG tube, NO REBOUND OR GUARDING EXT/SKIN: NO SIGNIFICANT EDEMA OR RASH MSK: Left hemiparesis NEURO: CN 2-12 GROSSLY INTACT, NO NEW FOCAL DEFICITS PSY: CALM - Constitutional Vitals: Temp Pulse Resp BP Pulse Ox 98.4 F 68 18 91/59 99 09/22/16 12:21 09/22/16 14:24 09/22/16 14:24 09/22/16 12:21 09/22/16 09:03 Results - Labs CBC & Chem 7: 09/22/16 03:58 09/22/16 03:58 Labs: Laboratory Last Values WBC 16.1 K/mm3 (4.5-11.0) H 09/22/16 03:58 RBC 4.16 M/mm3 (3.65-5.03) 09/22/16 03:58 Hgb 9.7 gm/dl (11.8-15.2) L 09/22/16 03:58 Hct 31.1 % (35.5-45.6) L 09/22/16 03:58 MCV 75 fl (84-94) L 09/22/16 03:58 MCH 23 pg (28-32) L 09/22/16 03:58 MCHC 31 % (32-34) L 09/22/16 03:58 RDW 26.3 % (13.2-15.2) H 09/22/16 03:58 Plt Count 281 K/mm3 (140-440) 09/22/16 03:58 Add Manual Diff Complete 09/22/16 03:58 Total Counted 100 09/22/16 03:58 Seg Neuts % (Manual) 76.0 % (40.0-70.0) H 09/22/16 03:58 Band Neutrophils % 2.0 % 09/22/16 03:58 Lymphocytes % (Manual) 10.0 % (13.4-35.0) L 09/22/16 03:58 Reactive Lymphs % (Man) 0 % 09/22/16 03:58 Monocytes % (Manual) 12.0 % (0.0-7.3) H 09/22/16 03:58 Eosinophils % (Manual) 0 % (0.0-4.3) 09/22/16 03:58 Basophils % (Manual) 0 % (0.0-1.8) 09/22/16 03:58 Metamyelocytes % 0 % 09/22/16 03:58 Myelocytes % 0 % 09/22/16 03:58 Promyelocytes % 0 % 09/22/16 03:58 Blast Cells % 0 % 09/22/16 03:58 Nucleated RBC % Not Reportable 09/22/16 03:58 Seg Neutrophils # Man 12.2 K/mm3 (1.8-7.7) H 09/22/16 03:58 Band Neutrophils # 0.3 K/mm3 09/22/16 03:58 Lymphocytes # (Manual) 1.6 K/mm3 (1.2-5.4) 09/22/16 03:58 Abs React Lymphs (Man) 0.0 K/mm3 09/22/16 03:58 Monocytes # (Manual) 1.9 K/mm3 (0.0-0.8) H 09/22/16 03:58 Eosinophils # (Manual) 0.0 K/mm3 (0.0-0.4) 09/22/16 03:58 Basophils # (Manual) 0.0 K/mm3 (0.0-0.1) 09/22/16 03:58 Metamyelocytes # 0.0 K/mm3 09/22/16 03:58 Myelocytes # 0.0 K/mm3 09/22/16 03:58 Promyelocytes # 0.0 K/mm3 09/22/16 03:58 Blast Cells # 0.0 K/mm3 09/22/16 03:58 WBC Morphology Not Reportable 09/22/16 03:58 Hypersegmented Neuts Not Reportable 09/22/16 03:58 Hyposegmented Neuts Not Reportable 09/22/16 03:58 Hypogranular Neuts Not Reportable 09/22/16 03:58 Smudge Cells Not Reportable 09/22/16 03:58 Toxic Granulation Not Reportable 09/22/16 03:58 Toxic Vacuolation Not Reportable 09/22/16 03:58 Dohle Bodies Not Reportable 09/22/16 03:58 Pelger-Huet Anomaly Not Reportable 09/22/16 03:58 [place] Rods Not Reportable 09/22/16 03:58 Platelet Estimate Consistent w auto 09/22/16 03:58 Clumped Platelets Not Reportable 09/22/16 03:58 Plt Clumps, EDTA Not Reportable 09/22/16 03:58 Large Platelets Not Reportable 09/22/16 03:58 Giant Platelets Not Reportable 09/22/16 03:58 Platelet Satelliting Not Reportable 09/22/16 03:58 Plt Morphology Comment Not Reportable 09/22/16 03:58 RBC Morphology Not Reportable 09/22/16 03:58 Dimorphic RBCs Not Reportable 09/22/16 03:58 Polychromasia Not Reportable 09/22/16 03:58 Hypochromasia 1+ 09/22/16 03:58 Poikilocytosis Not Reportable 09/22/16 03:58 Anisocytosis 3+ 09/22/16 03:58 Microcytosis Not Reportable 09/22/16 03:58 Macrocytosis Not Reportable 09/22/16 03:58 Spherocytes Not Reportable 09/22/16 03:58 Pappenheimer Bodies Not Reportable 09/22/16 03:58 Sickle Cells Not Reportable 09/22/16 03:58 Target Cells Not Reportable 09/22/16 03:58 Tear Drop Cells Not Reportable 09/22/16 03:58 Ovalocytes Not Reportable 09/22/16 03:58 Helmet Cells Not Reportable 09/22/16 03:58 [place] Bodies Not Reportable 09/22/16 03:58 [place] Rings Not Reportable 09/22/16 03:58 [place] Cells Not Reportable 09/22/16 03:58 Bite Cells Not Reportable 09/22/16 03:58 Crenated Cell Not Reportable 09/22/16 03:58 Elliptocytes Not Reportable 09/22/16 03:58 Acanthocytes (Spur) Not Reportable 09/22/16 03:58 Rouleaux Not Reportable 09/22/16 03:58 Hemoglobin C Crystals Not Reportable 09/22/16 03:58 Schistocytes Rare 09/22/16 03:58 Malaria parasites Not Reportable 09/22/16 03:58 Arcenio Bodies Not Reportable 09/22/16 03:58 Hem Pathologist Commnt No 09/22/16 03:58 PT 15.7 Sec. (12.2-14.9) H 09/20/16 23:49 INR 1.26 (0.87-1.13) H 09/20/16 23:49 APTT 30.1 Sec. (24.2-36.6) 09/20/16 23:49 Sodium 147 mmol/L (137-145) H 09/22/16 03:58 Potassium 3.5 mmol/L (3.6-5.0) L 09/22/16 03:58 Chloride 115.8 mmol/L (98-107) H 09/22/16 03:58 Carbon Dioxide 12 mmol/L (22-30) L 09/22/16 03:58 Anion Gap 23 mmol/L 09/22/16 03:58 BUN 86 mg/dL (9-20) H 09/22/16 03:58 Creatinine 2.2 mg/dL (0.8-1.5) H 09/22/16 03:58 Estimated GFR 37 ml/min 09/22/16 03:58 BUN/Creatinine Ratio 39.09 % 09/22/16 03:58 Glucose 80 mg/dL (75-100) 09/22/16 03:58 POC Glucose 95 (70-105) 09/22/16 11:42 Lactic Acid 0.90 mmol/L (0.7-2.0) 09/21/16 01:03 Calcium 9.1 mg/dL (8.4-10.2) 09/22/16 03:58 Total Bilirubin 0.20 mg/dL (0.1-1.2) 09/20/16 23:42 AST 13 units/L (5-40) 09/20/16 23:42 ALT 13 units/L (7-56) 09/20/16 23:42 Alkaline Phosphatase 73 units/L (35-129) 09/20/16 23:42 Total Creatine Kinase 53 units/L (55-170) L 09/21/16 11:23 CK-MB (CK-2) 1.7 ng/mL (0.0-4.0) 09/21/16 11:23 CK-MB (CK-2) Rel Index 3.2 (0-4) 09/21/16 11:23 Troponin T 0.033 ng/mL (0.00-0.029) H 09/21/16 11:23 NT-Pro-B Natriuret Pep 2195 pg/mL (0-900) H 09/20/16 23:42 Total Protein 7.4 g/dL (6.3-8.2) 09/20/16 23:42 Albumin 2.7 g/dL (3.9-5) L 09/20/16 23:42 Albumin/Globulin Ratio 0.6 % 09/20/16 23:42 Triglycerides 164 mg/dL (2-149) H 09/20/16 23:42 Cholesterol 95 mg/dL (50-199) 09/20/16 23:42 LDL Cholesterol Direct 43 mg/dL (50-130) L 09/20/16 23:42 HDL Cholesterol 20 mg/dL (40-59) L 09/20/16 23:42 Cholesterol/HDL Ratio 4.75 % 09/20/16 23:42 Urine Color Yellow (Yellow) 09/21/16 17:12 Urine Turbidity Clear (Clear) 09/21/16 17:12 Urine pH 6.0 (5.0-7.0) 09/21/16 17:12 Ur Specific [place] 1.016 (1.003-1.030) 09/21/16 17:12 Urine Protein 30 mg/dl mg/dL (Negative) 09/21/16 17:12 Urine Glucose (UA) Neg mg/dL (Negative) 09/21/16 17:12 Urine Ketones Neg mg/dL (Negative) 09/21/16 17:12 Urine Blood Neg (Negative) 09/21/16 17:12 Urine Nitrite Neg (Negative) 09/21/16 17:12 Urine Bilirubin Neg (Negative) 09/21/16 17:12 Urine Urobilinogen < 2.0 mg/dL (<2.0) 09/21/16 17:12 Ur Leukocyte Esterase Tr (Negative) 09/21/16 17:12 Urine WBC (Auto) 6.0 /HPF (0.0-6.0) 09/21/16 17:12 Urine RBC (Auto) 1.0 /HPF (0.0-6.0) 09/21/16 17:12 U Epithel Cells (Auto) < 1.0 /HPF (0-13.0) 09/21/16 17:12 Urine Bacteria (Auto) 2+ /HPF (Negative) 09/21/16 17:12 Urine Mucus Few /HPF 09/21/16 17:12 Urine Eosinophils None seen (None Seen) 09/21/16 17:12
[2016-09-22] MEDS ORDERED: PANCREAZE DR 10,500 UNIT FEEDTUBE PRN (14:47)
[2016-09-22] MEDS ORDERED: SODIUM BICARBONATE FEEDTUBE PRN (14:47)
[2016-09-22] MEDS ORDERED: SIMPLE SYRUP FEEDTUBE PRN ×2 (14:47)
[2016-09-22] MEDS ORDERED: VANCOMYCIN/NS 1 GM/250 ML 1 GM/250 ML BAG IV SCH (20:00)
[2016-09-23] MEDS: D5W IV SCH ×2 (00:24→11:02)
[2016-09-23] MEDS: SODIUM BICARBONATE IV SCH ×2 (00:24→11:02)
[2016-09-23] MEDS: KCL IV SCH ×2 (00:24→11:02)
[2016-09-23] MEDS: DUONEB *Not for PRN Use IH SCH ×4 (02:35→20:40)
[2016-09-23] MEDS: FLAGYL FEEDTUBE SCH ×3 (03:31→18:24)
[2016-09-23 05:09] LABS: Hemoglobin 9.6 gm/dl (11.8-15.2); Mean Corpuscular HGB Conc 32 % (32-34); Mean Corpuscular Volume 72 fl (84-94); Platelet Count 282 K/mm3 (140-440); Red Blood Count 4.17 M/mm3 (3.65-5.03); White Blood Count 13.4 K/mm3 (4.5-11.0)
[2016-09-23 05:21] LABS: Chloride 113.7 mmol/L (98-107); Potassium 3.4 mmol/L (3.6-5.0)
[2016-09-23 05:23] LABS: Mean Corpuscular Hemoglobin 23 pg (28-32)
[2016-09-23 05:24] LABS: Red Cell Distribution Width 26.1 % (13.2-15.2)
[2016-09-23] MEDS: ULTRAM PO PRN ×2 (06:35→22:17)
--- NOTE | 2016-09-23 08:59 | Consultation ---
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 Patient is unabole to give a history due to aphasia. Report is taken from long-term staff and EMS. In the ED, temperature was 99, HR 99, BP 103/66, WBC 20.9K, creat 2.4, UA negative. Stool C diff PCR was positive. CXR negative. Renal US negative except for + PC nephrostomy tube. Right nephrostomy tube demonstrating purulence drainage. Microbiology: Blood cultures: 09/21 ngdt Urine cultures: Respiratory cultures: Wound cultures: Other: Stool C diff 09/21 positive Current Antibiotics: 09/21 Metronidazole Previous antibiootics: 09/21 Vancomycin IV x 1 Past History Past Medical History: atrial fib, diabetes, hypertension, hyperlipidemia, renal failure, stroke, other (obtructive uropathy s/p right NT) Medications and Allergies Allergies Allergy/AdvReac Type Severity Reaction Status Date / Time No Known Allergies Allergy Unverified 09/20/16 23:22 Home Medications Medication Instructions Recorded Confirmed Last Taken Type Carvedilol [Coreg] 25 mg PO BID #60 tablet 11/25/14 05/26/16 1 Day Ago Rx Warfarin [Coumadin] 7.5 mg PO QDAY #30 tablet 11/25/14 05/26/16 1 Day Ago Rx metFORMIN [Glucophage] 500 mg PO QDAY #30 tab 11/25/14 05/27/16 1 Week Ago Rx Lisinopril/Hydrochlorothiazide 1 tab PO QDAY 11/05/15 05/26/16 1 Day Ago History [Zestoretic 20-12.5 mg] Sertraline HCl [Zoloft] 50 mg PO DAILY 11/05/15 05/26/16 1 Day Ago History amLODIPine [Norvasc] 5 mg PO DAILY 11/05/15 05/26/16 1 Day Ago History cloNIDine [Catapres] 0.2 mg PO BID 11/05/15 05/26/16 1 Day Ago History Aspirin [Aspirin TAB] 325 mg PO QDAY #30 tablet 06/01/16 Unknown Rx Bisacodyl [Dulcolax suppos] 10 mg NM QDAY PRN #30 supp.rect 06/01/16 Unknown Rx Carvedilol [Coreg] 25 mg PO BID #30 tablet 06/01/16 Unknown Rx Hydrochlorothiazide [HCTZ] 12.5 mg PO QDAY capsule 06/01/16 Unknown Rx Pantoprazole [Protonix TAB] 40 mg PO DAILY tablet 06/01/16 Unknown Rx Sertraline [Zoloft] 50 mg PO QDAY tablet 06/01/16 Unknown Rx Simvastatin [Zocor TAB] 40 mg PO QHS #30 tablet 06/01/16 Unknown Rx amLODIPine [Norvasc] 5 mg PO DAILY #30 tablet 06/01/16 Unknown Rx cloNIDine [Catapres] 0.2 mg PO BID #30 tablet 06/01/16 Unknown Rx metFORMIN [Glucophage] 500 mg PO QDDIAB tablet 06/01/16 Unknown Rx Amiodarone [Cordarone 200 MG TAB] 200 mg PO DAILY 09/20/16 09/20/16 Unknown History Aspirin [Aspirin BABY CHEW TAB] 81 mg PO QDAY 09/20/16 09/20/16 Unknown History AtorvaSTATin [Lipitor] 20 mg PO QHS 09/20/16 09/20/16 Unknown History Bisacodyl [Dulcolax suppos] 10 mg NM QDAY 09/20/16 09/20/16 Unknown History Carvedilol [Coreg] 12.5 mg PO BID 09/20/16 09/20/16 Unknown History Cholestyramine (with Sugar) 378 gm PO BID 09/20/16 09/20/16 Unknown History [Cholestyramine Powder] Diltiazem [CarDIZEM] 60 mg PO QID 09/20/16 09/20/16 Unknown History Insulin Aspart [NovoLOG Flexpen] 0 units SQ ACHS 09/20/16 09/20/16 Unknown History Ipratropium [Atrovent] 0.5 mg IH Q6HRT 09/20/16 09/20/16 Unknown History Pantoprazole [Protonix] 40 mg PO QDAY 09/20/16 09/20/16 Unknown History Rivaroxaban [Xarelto] 10 mg PO QDAY 09/20/16 09/20/16 Unknown History Sertraline HCl [Zoloft] 50 mg PO DAILY 09/20/16 09/20/16 Unknown History metFORMIN [Glucophage] 500 mg PO QDAY 09/20/16 09/20/16 Unknown History traMADol [Ultram] 50 mg PO Q8HR PRN 09/20/16 09/20/16 Unknown History Active Meds: Active Medications Acetaminophen (Tylenol) 650 mg PO Q4H PRN PRN Reason: Pain MILD(1-3)/Fever >100.5/NATARAJAN Albuterol/Ipratropium (Duoneb *Not For Prn Use*) 1 ampul IH Q6HRT [facility] Last Admin: 09/23/16 08:36 Dose: 1 ampul Amiodarone HCl (Cordarone) 200 mg PO DAILY [facility] Last Admin: 09/22/16 10:37 Dose: 200 mg Lipase/Protease/Amylase (Pancreaze Dr 10,500 Unit) 1 each FEEDTUBE PRN PRN PRN Reason: For Clogged Feeding Tube Aspirin (Baby Aspirin) 81 mg PO QDAY [facility] Last Admin: 09/22/16 10:37 Dose: 81 mg Atorvastatin Calcium (Lipitor) 20 mg PO QHS [facility] Last Admin: 09/22/16 22:44 Dose: 20 mg Bisacodyl (Dulcolax) 10 mg NM QDAY [facility] Last Admin: 09/22/16 10:40 Dose: Not Given Carvedilol (Coreg) 12.5 mg PO BID [facility] Last Admin: 09/22/16 22:45 Dose: 12.5 mg Cholestyramine Resin (Questran) 4 gm PO BID [facility] Last Admin: 09/22/16 22:46 Dose: 4 gm Diltiazem HCl (Cardizem) 60 mg PO QID [facility] Last Admin: 09/22/16 22:44 Dose: 60 mg Potassium Chloride 20 meq/Sodium Bicarbonate 75 meq/Dextrose 1,085 mls @ 125 mls/hr IV DIRECT [facility] Last Admin: 09/23/16 00:24 Dose: 125 mls/hr Metronidazole (Flagyl) 500 mg FEEDTUBE Q8H [facility] Last Admin: 09/23/16 03:31 Dose: 500 mg Ondansetron HCl (Zofran) 4 mg IV Q8H PRN PRN Reason: N/V unrelieved by Reglan Pantoprazole Sodium (Protonix) 40 mg PO QDAY [facility] Last Admin: 09/22/16 10:37 Dose: 40 mg Rivaroxaban (Xarelto) 10 mg PO QDAY [facility] PRN Reason: Protocol Last Admin: 09/22/16 10:39 Dose: 10 mg Sertraline HCl (Zoloft) 50 mg PO QDAY [facility] Last Admin: 09/22/16 10:37 Dose: 50 mg Simple Syrup (Simple Syrup) 15 ml FEEDTUBE PRN PRN PRN Reason: Hypoglycemia Simple Syrup (Simple Syrup) 30 ml FEEDTUBE PRN PRN PRN Reason: Hypoglycemia Sodium Bicarbonate (Sodium Bicarbonate) 325 mg FEEDTUBE PRN PRN PRN Reason: For Clogged Feeding Tube Tramadol HCl (Ultram) 50 mg PO Q8HR PRN PRN Reason: Pain Last Admin: 09/23/16 06:35 Dose: 50 mg Review of Systems ROS unobtainable: due to mental status Physical Examination - Constitutional Vitals: Vital Signs Temp Pulse Resp BP Pulse Ox 98 F 75 16 136/73 100 09/23/16 04:00 09/23/16 08:36 09/23/16 08:36 09/23/16 04:00 09/22/16 21:16 Temperature -Last 24 Hours Temperature 98 F Temperature 97.8 F Temperature 97.7 F Temperature 98.4 F General appearance: Present: no acute distress, well-nourished - EENT Eyes: Present: PERRL ENT: hearing intact, clear oral mucosa - Neck Neck: Present: supple, normal ROM - Respiratory Respiratory effort: normal Respiratory: bilateral: CTA - Cardiovascular Rhythm: irregularly irregular Heart Sounds: Present: S1 & S2. Absent: rub, click - Extremities Extremities: pulses symmetrical, No edema Peripheral Pulses: within normal limits - Abdominal General gastrointestinal: Present: soft, non-tender, non-distended, normal bowel sounds, other (right sided PEG in place no erythema or drainage) Male genitourinary: Present: normal (right nephrostomy tube with purulent urine) - Integumentary Integumentary: Present: clear, warm, dry - Musculoskeletal Musculoskeletal: left sided weakness, other (aphasia ) - Neurologic Neurologic: CNII-XII intact, focal deficits Results - Labs CBC & Chem 7: 09/23/16 04:37 09/23/16 04:37 Labs: Abnormal lab results 09/22/16 09/22/16 09/23/16 Range/Units 16:28 23:51 04:37 WBC (4.5-11.0) K/mm3 Hgb (11.8-15.2) gm/dl Hct (35.5-45.6) % MCV (84-94) fl MCH (28-32) pg RDW (13.2-15.2) % Potassium 3.4 L (3.6-5.0) mmol/L Chloride 113.7 H (98-107) mmol/L Carbon Dioxide 13 L (22-30) mmol/L BUN 76 H (9-20) mg/dL Creatinine 2.0 H (0.8-1.5) mg/dL Glucose 155 H (75-100) mg/dL POC Glucose 137 H 146 H (70-105) 09/23/16 09/23/16 Range/Units 04:37 07:00 WBC 13.4 H (4.5-11.0) K/mm3 Hgb 9.6 L (11.8-15.2) gm/dl Hct 30.0 L (35.5-45.6) % MCV 72 L (84-94) fl MCH 23 L (28-32) pg RDW 26.1 H (13.2-15.2) % Potassium (3.6-5.0) mmol/L Chloride (98-107) mmol/L Carbon Dioxide (22-30) mmol/L BUN (9-20) mg/dL Creatinine (0.8-1.5) mg/dL Glucose (75-100) mg/dL POC Glucose 191 H (70-105) - Imaging and Cardiology Chest x-ray: report reviewed (negative) US - abdomen: report reviewed (normal no hydro or stones) Assessment and Plan Assessment: 1) Sepsis: Present on admission, manifested by low grade fever, leukocytosis, tachycardia. Etiology - secondary to acute C diff colitis. Improving. 2) Acute C diff colitis- moderate: improving 3) Right nephrostomy tube with what appears to be purulence: however UA negative. US kidney showed no kidney stones, no hydronephrosis. 4) Acute on CKD 5) Recent CVA with left hemiparesia and aphasia 6) A fib 7) Anemia Plan: -follow-up blood cultures -monitor leukocytosis which is improving -continue metronidazole 500 mg IV q 8 hours -call provider who placed right nephrostomy tube, US kidney showed no kidney stones, no hydronephrosis, can we remove it? -avoid broad-spectrum antibiotics as you are doing -add probiotics -upon discharge continue metronidazole 500 mg PO q 8 hours for total 10 days from 09/21 until 09/30/[address] Albert for your consultation, will f/u with you Agnes Rodriguez MD Infectious Diseases Specialist [facility] ([facility] M [phone] O [phone]
--- NOTE | 2016-09-23 09:39 | Progress Note ---
Assessment and Plan Impression: * KATHARINE on CKD * obstructive uropathy-s/p nephrostomy tube * metabolic acidosis * azotemia * volume depletion * diarrhea * c diff * sepsis * pyuria * hypernatremia Plan: * ua with cultures pending, continue iv abx, purulent discharge noted but better today * daily lytes renal us noted, right nephrotomy in place, * strict i/os * avoid nephrotoxins * renal diet * added bicarb gtt, co2 better * iv abx per id * dc'd metformin * iv fluids * ? baseline, katharine likely due to volume depletion in the setting of obstructive renal disease Subjective Date of service: 09/23/16 Principal diagnosis: katharine Interval history: resting in bed today Objective - Exam Narrative Exam: Gen. appearance: Patient lying in bed, no apparent distress HEENT: Normocephalic, atraumatic, pupils equally round and reactive to light, extraocular movement intact, and no sclericterus,. No JVD or thyromegaly or nodule,neck supple, no carotid bruit ,mucous membranes moist, no exudate or erythema Heart: S1, S2, regular rate and rhythm Lungs: Clear to auscultation bilaterally, breathing comfortable Abdomen: Positive bowel sounds, nontender, +peg, nondistended, no organomegaly Extremity: Nephrostomy tube, No edema, cyanosis, clubbing Skin: No rash, nodules, warm, dry Neuro nonverbal, difficult to assess - Vital Signs Vital signs: Vital Signs - 12hr 09/22/16 09/22/16 09/22/16 22:00 22:44 22:45 Temperature Pulse Rate 68 68 Pulse Rate [ Anterior Bilateral Throughout] Pulse Rate [ 68 Apical] Respiratory 16 Rate Respiratory Rate [Anterior Bilateral Throughout] Blood Pressure 120/63 120/63 O2 Sat by Pulse 100 Oximetry 09/23/16 09/23/16 09/23/16 04:00 07:20 08:36 Temperature 98 F 98.2 F Pulse Rate 75 66 Pulse Rate [ 75 Anterior Bilateral Throughout] Pulse Rate [ Apical] Respiratory 16 20 Rate Respiratory 16 Rate [Anterior Bilateral Throughout] Blood Pressure 136/73 113/56 O2 Sat by Pulse 96 Oximetry 09/23/16 08:47 Temperature Pulse Rate Pulse Rate [ 83 Anterior Bilateral Throughout] Pulse Rate [ Apical] Respiratory Rate Respiratory 16 Rate [Anterior Bilateral Throughout] Blood Pressure O2 Sat by Pulse Oximetry - Lab 09/23/16 04:37 09/23/16 04:37 Most recent lab results Calcium 9.0 mg/dL (8.4-10.2) 09/23/16 04:37
[2016-09-23] MEDS: CARDIZEM PO SCH ×2 (10:59→18:24)
[2016-09-23] MEDS: CORDARONE PO SCH (10:59)
[2016-09-23] MEDS: BABY ASPIRIN PO SCH (10:59)
[2016-09-23] MEDS: QUESTRAN PO SCH ×2 (10:59→22:17)
[2016-09-23] MEDS: ZOLOFT PO SCH (11:00)
[2016-09-23] MEDS: XARELTO PO SCH (11:00)
[2016-09-23] MEDS: COREG PO SCH (11:00)
[2016-09-23] MEDS: DULCOLAX PR SCH (11:01)
[2016-09-23] MEDS: MAGNESIUM SULFATE 2GM/50ML 2 GM/50 ML BAG IV ONE ×2 (11:02→18:22)
[2016-09-23] MEDS: PROTONIX PO SCH (11:05)
[2016-09-23] MEDS: KCL 10MEQ/100ML 10 MEQ/100 ML BAG IV SCH ×2 (11:08→13:03)
--- NOTE | 2016-09-23 12:46 | Progress Note ---
Assessment and Plan Assessment and plan: Patient 61-year-old man from [facility] with a history of hypertension, A. fib, diabetes mellitus2, CKD 3,CVA with aphasia/left hemiparesis with PEG tube and obstructive uropathy with right nephrostomy tube who presented to emergency department with diarrhea and was found to be have C. difficile colitis. -Sepsis instead of SIRS present on admission due to C. difficile: Treatment with Flagyl -ARF/CKD 3 due to vasomotor nephropathy, poa, ?baseline: Renal is following -Afib: consulted Cardiology, on Xarelto, echocardiogram pending -Diabetes mellitus type 2: Sliding scale insulin, start tube feedings, consulted dietitian -DVT prophylaxis: on Xarelto -Malnutrition albumin 2.7, present on admission: Consult dietitian -Bradycardia with atrial fibrillation, echocardiogram pending, consulted cardiology -Pyruria with nephrostomy tube on the right, no history: placed on iv Vancomycin by Nephrology, complex medical decision because other abx will make c.diffe worse, will consult ID==>continue present management and follow cultures. full code Still with loose stools. Will try reach Daphne to nieves more information regarding nephrostomy tube placement, ==>Placed at [facility] main [facility] about 1.5 months ago, she doesn't know doctor name. Disposition: continue inpatient care, anticipate discharge back to [facility] tomorrow. History Interval history: Patient seen and examined. Follow up on current diagnosis/diarrhea. Overnight uneventful. Nonverbal. Imaging, old records, testing, labs, nursing notes reviewed. Hospitalist Physical - Physical exam Narrative exam: GEN: Chronically debilitated NAD, AWAKE, ALERT, but nonverbal HEENT: NCAT, PERRL, EOMI, OP CLEAR NECK: SUPPLE, NO THYROMEGALY, NO JVD, NO LAD CVS: irregular bradycardia, NORMAL S1S2 LUNGS/CHEST: CTA B, NORMAL CHEST EXPANSION B, GOOD AIR ENTRY B ABD: SOFT, diffuse tenderness, nondistended GBS, with PEG tube, NO REBOUND OR GUARDING EXT/SKIN: NO SIGNIFICANT EDEMA OR RASH MSK: Left hemiparesis NEURO: CN 2-12 GROSSLY INTACT, NO NEW FOCAL DEFICITS PSY: CALM - Constitutional Vitals: Temp Pulse Resp BP Pulse Ox 98.2 F 120 H 16 120/68 96 09/23/16 07:20 09/23/16 10:59 09/23/16 08:47 09/23/16 11:00 09/23/16 07:20 General appearance: Present: no acute distress, well-nourished Results - Labs CBC & Chem 7: 09/23/16 04:37 09/23/16 04:37 Labs: Laboratory Last Values WBC 13.4 K/mm3 (4.5-11.0) H 09/23/16 04:37 RBC 4.17 M/mm3 (3.65-5.03) 09/23/16 04:37 Hgb 9.6 gm/dl (11.8-15.2) L 09/23/16 04:37 Hct 30.0 % (35.5-45.6) L 09/23/16 04:37 MCV 72 fl (84-94) L 09/23/16 04:37 MCH 23 pg (28-32) L 09/23/16 04:37 MCHC 32 % (32-34) 09/23/16 04:37 RDW 26.1 % (13.2-15.2) H 09/23/16 04:37 Plt Count 282 K/mm3 (140-440) 09/23/16 04:37 Add Manual Diff Complete 09/22/16 03:58 Total Counted 100 09/22/16 03:58 Seg Neuts % (Manual) 76.0 % (40.0-70.0) H 09/22/16 03:58 Band Neutrophils % 2.0 % 09/22/16 03:58 Lymphocytes % (Manual) 10.0 % (13.4-35.0) L 09/22/16 03:58 Reactive Lymphs % (Man) 0 % 09/22/16 03:58 Monocytes % (Manual) 12.0 % (0.0-7.3) H 09/22/16 03:58 Eosinophils % (Manual) 0 % (0.0-4.3) 09/22/16 03:58 Basophils % (Manual) 0 % (0.0-1.8) 09/22/16 03:58 Metamyelocytes % 0 % 09/22/16 03:58 Myelocytes % 0 % 09/22/16 03:58 Promyelocytes % 0 % 09/22/16 03:58 Blast Cells % 0 % 09/22/16 03:58 Nucleated RBC % Not Reportable 09/22/16 03:58 Seg Neutrophils # Man 12.2 K/mm3 (1.8-7.7) H 09/22/16 03:58 Band Neutrophils # 0.3 K/mm3 09/22/16 03:58 Lymphocytes # (Manual) 1.6 K/mm3 (1.2-5.4) 09/22/16 03:58 Abs React Lymphs (Man) 0.0 K/mm3 09/22/16 03:58 Monocytes # (Manual) 1.9 K/mm3 (0.0-0.8) H 09/22/16 03:58 Eosinophils # (Manual) 0.0 K/mm3 (0.0-0.4) 09/22/16 03:58 Basophils # (Manual) 0.0 K/mm3 (0.0-0.1) 09/22/16 03:58 Metamyelocytes # 0.0 K/mm3 09/22/16 03:58 Myelocytes # 0.0 K/mm3 09/22/16 03:58 Promyelocytes # 0.0 K/mm3 09/22/16 03:58 Blast Cells # 0.0 K/mm3 09/22/16 03:58 WBC Morphology Not Reportable 09/22/16 03:58 Hypersegmented Neuts Not Reportable 09/22/16 03:58 Hyposegmented Neuts Not Reportable 09/22/16 03:58 Hypogranular Neuts Not Reportable 09/22/16 03:58 Smudge Cells Not Reportable 09/22/16 03:58 Toxic Granulation Not Reportable 09/22/16 03:58 Toxic Vacuolation Not Reportable 09/22/16 03:58 Dohle Bodies Not Reportable 09/22/16 03:58 Pelger-Huet Anomaly Not Reportable 09/22/16 03:58 [place] Rods Not Reportable 09/22/16 03:58 Platelet Estimate Consistent w auto 09/22/16 03:58 Clumped Platelets Not Reportable 09/22/16 03:58 Plt Clumps, EDTA Not Reportable 09/22/16 03:58 Large Platelets Not Reportable 09/22/16 03:58 Giant Platelets Not Reportable 09/22/16 03:58 Platelet Satelliting Not Reportable 09/22/16 03:58 Plt Morphology Comment Not Reportable 09/22/16 03:58 RBC Morphology Not Reportable 09/22/16 03:58 Dimorphic RBCs Not Reportable 09/22/16 03:58 Polychromasia Not Reportable 09/22/16 03:58 Hypochromasia 1+ 09/22/16 03:58 Poikilocytosis Not Reportable 09/22/16 03:58 Anisocytosis 3+ 09/22/16 03:58 Microcytosis Not Reportable 09/22/16 03:58 Macrocytosis Not Reportable 09/22/16 03:58 Spherocytes Not Reportable 09/22/16 03:58 Pappenheimer Bodies Not Reportable 09/22/16 03:58 Sickle Cells Not Reportable 09/22/16 03:58 Target Cells Not Reportable 09/22/16 03:58 Tear Drop Cells Not Reportable 09/22/16 03:58 Ovalocytes Not Reportable 09/22/16 03:58 Helmet Cells Not Reportable 09/22/16 03:58 [place] Bodies Not Reportable 09/22/16 03:58 [place] Rings Not Reportable 09/22/16 03:58 [place] Cells Not Reportable 09/22/16 03:58 Bite Cells Not Reportable 09/22/16 03:58 Crenated Cell Not Reportable 09/22/16 03:58 Elliptocytes Not Reportable 09/22/16 03:58 Acanthocytes (Spur) Not Reportable 09/22/16 03:58 Rouleaux Not Reportable 09/22/16 03:58 Hemoglobin C Crystals Not Reportable 09/22/16 03:58 Schistocytes Rare 09/22/16 03:58 Malaria parasites Not Reportable 09/22/16 03:58 [place] Bodies Not Reportable 09/22/16 03:58 Hem Pathologist Commnt No 09/22/16 03:58 PT 15.7 Sec. (12.2-14.9) H 09/20/16 23:49 INR 1.26 (0.87-1.13) H 09/20/16 23:49 APTT 30.1 Sec. (24.2-36.6) 09/20/16 23:49 Sodium 144 mmol/L (137-145) 09/23/16 04:37 Potassium 3.4 mmol/L (3.6-5.0) L 09/23/16 04:37 Chloride 113.7 mmol/L (98-107) H 09/23/16 04:37 Carbon Dioxide 13 mmol/L (22-30) L 09/23/16 04:37 Anion Gap 21 mmol/L 09/23/16 04:37 BUN 76 mg/dL (9-20) H 09/23/16 04:37 Creatinine 2.0 mg/dL (0.8-1.5) H 09/23/16 04:37 Estimated GFR 41 ml/min 09/23/16 04:37 BUN/Creatinine Ratio 38.00 % 09/23/16 04:37 Glucose 155 mg/dL (75-100) H 09/23/16 04:37 POC Glucose 191 (70-105) H 09/23/16 07:00 Lactic Acid 0.90 mmol/L (0.7-2.0) 09/21/16 01:03 Calcium 9.0 mg/dL (8.4-10.2) 09/23/16 04:37 Total Bilirubin 0.20 mg/dL (0.1-1.2) 09/20/16 23:42 AST 13 units/L (5-40) 09/20/16 23:42 ALT 13 units/L (7-56) 09/20/16 23:42 Alkaline Phosphatase 73 units/L (35-129) 09/20/16 23:42 Total Creatine Kinase 53 units/L (55-170) L 09/21/16 11:23 CK-MB (CK-2) 1.7 ng/mL (0.0-4.0) 09/21/16 11:23 CK-MB (CK-2) Rel Index 3.2 (0-4) 09/21/16 11:23 Troponin T 0.033 ng/mL (0.00-0.029) H 09/21/16 11:23 NT-Pro-B Natriuret Pep 2195 pg/mL (0-900) H 09/20/16 23:42 Total Protein 7.4 g/dL (6.3-8.2) 09/20/16 23:42 Albumin 2.7 g/dL (3.9-5) L 09/20/16 23:42 Albumin/Globulin Ratio 0.6 % 09/20/16 23:42 Triglycerides 164 mg/dL (2-149) H 09/20/16 23:42 Cholesterol 95 mg/dL (50-199) 09/20/16 23:42 LDL Cholesterol Direct 43 mg/dL (50-130) L 09/20/16 23:42 HDL Cholesterol 20 mg/dL (40-59) L 09/20/16 23:42 Cholesterol/HDL Ratio 4.75 % 09/20/16 23:42 Urine Color Yellow (Yellow) 09/21/16 17:12 Urine Turbidity Clear (Clear) 09/21/16 17:12 Urine pH 6.0 (5.0-7.0) 09/21/16 17:12 Ur Specific [place] 1.016 (1.003-1.030) 09/21/16 17:12 Urine Protein 30 mg/dl mg/dL (Negative) 09/21/16 17:12 Urine Glucose (UA) Neg mg/dL (Negative) 09/21/16 17:12 Urine Ketones Neg mg/dL (Negative) 09/21/16 17:12 Urine Blood Neg (Negative) 09/21/16 17:12 Urine Nitrite Neg (Negative) 09/21/16 17:12 Urine Bilirubin Neg (Negative) 09/21/16 17:12 Urine Urobilinogen < 2.0 mg/dL (<2.0) 09/21/16 17:12 Ur Leukocyte Esterase Tr (Negative) 09/21/16 17:12 Urine WBC (Auto) 6.0 /HPF (0.0-6.0) 09/21/16 17:12 Urine RBC (Auto) 1.0 /HPF (0.0-6.0) 09/21/16 17:12 U Epithel Cells (Auto) < 1.0 /HPF (0-13.0) 09/21/16 17:12 Urine Bacteria (Auto) 2+ /HPF (Negative) 09/21/16 17:12 Urine Mucus Few /HPF 09/21/16 17:12 Urine Eosinophils None seen (None Seen) 09/21/16 17:12
--- NOTE | 2016-09-23 12:58 | Consultation ---
History of Present Illness Consult date: 09/23/16 Consult reason: atrial fibrillation History of present illness: This is a 61yr old male admitted with sepsis thought secondary to C difficile colitis. Patient has multiple medical problems. He has a history of chronic atrial fibrillation and is on xarelto for oral anticoagulation. He also has a history of dilated cardiomyopathy. 2 years ago, an echocardiogram showed a severe left systolic dysfunction, EF 20-25%. A follow up echocardiogram shows his cardiomyopathy has resolved, ejection fraction now 60-65%. His ECG shows atrial fibrillation with a mild slow ventricular response, rate 56 thus this cardiac consultation. He is taking amiodarone 200mg, carvedilol 12.5mg twice a day and diltiazem 60mg every 6hrs. There is no reported chest pain or shortness of breath. Past History Past Medical History: atrial fib, diabetes, hypertension, hyperlipidemia, renal failure, stroke, other (obtructive uropathy s/p right NT) Medications and Allergies Allergies Allergy/AdvReac Type Severity Reaction Status Date / Time No Known Allergies Allergy Unverified 09/20/16 23:22 Home Medications Medication Instructions Recorded Confirmed Last Taken Type Carvedilol [Coreg] 25 mg PO BID #60 tablet 11/25/14 05/26/16 1 Day Ago Rx Warfarin [Coumadin] 7.5 mg PO QDAY #30 tablet 11/25/14 05/26/16 1 Day Ago Rx metFORMIN [Glucophage] 500 mg PO QDAY #30 tab 11/25/14 05/27/16 1 Week Ago Rx Lisinopril/Hydrochlorothiazide 1 tab PO QDAY 11/05/15 05/26/16 1 Day Ago History [Zestoretic 20-12.5 mg] Sertraline HCl [Zoloft] 50 mg PO DAILY 11/05/15 05/26/16 1 Day Ago History amLODIPine [Norvasc] 5 mg PO DAILY 11/05/15 05/26/16 1 Day Ago History cloNIDine [Catapres] 0.2 mg PO BID 11/05/15 05/26/16 1 Day Ago History Aspirin [Aspirin TAB] 325 mg PO QDAY #30 tablet 06/01/16 Unknown Rx Bisacodyl [Dulcolax suppos] 10 mg UT QDAY PRN #30 supp.rect 06/01/16 Unknown Rx Carvedilol [Coreg] 25 mg PO BID #30 tablet 06/01/16 Unknown Rx Hydrochlorothiazide [HCTZ] 12.5 mg PO QDAY capsule 06/01/16 Unknown Rx Pantoprazole [Protonix TAB] 40 mg PO DAILY tablet 06/01/16 Unknown Rx Sertraline [Zoloft] 50 mg PO QDAY tablet 06/01/16 Unknown Rx Simvastatin [Zocor TAB] 40 mg PO QHS #30 tablet 06/01/16 Unknown Rx amLODIPine [Norvasc] 5 mg PO DAILY #30 tablet 06/01/16 Unknown Rx cloNIDine [Catapres] 0.2 mg PO BID #30 tablet 06/01/16 Unknown Rx metFORMIN [Glucophage] 500 mg PO QDDIAB tablet 06/01/16 Unknown Rx Amiodarone [Cordarone 200 MG TAB] 200 mg PO DAILY 09/20/16 09/20/16 Unknown History Aspirin [Aspirin BABY CHEW TAB] 81 mg PO QDAY 09/20/16 09/20/16 Unknown History AtorvaSTATin [Lipitor] 20 mg PO QHS 09/20/16 09/20/16 Unknown History Bisacodyl [Dulcolax suppos] 10 mg UT QDAY 09/20/16 09/20/16 Unknown History Carvedilol [Coreg] 12.5 mg PO BID 09/20/16 09/20/16 Unknown History Cholestyramine (with Sugar) 378 gm PO BID 09/20/16 09/20/16 Unknown History [Cholestyramine Powder] Diltiazem [CarDIZEM] 60 mg PO QID 09/20/16 09/20/16 Unknown History Insulin Aspart [NovoLOG Flexpen] 0 units SQ ACHS 09/20/16 09/20/16 Unknown History Ipratropium [Atrovent] 0.5 mg IH Q6HRT 09/20/16 09/20/16 Unknown History Pantoprazole [Protonix] 40 mg PO QDAY 09/20/16 09/20/16 Unknown History Rivaroxaban [Xarelto] 10 mg PO QDAY 09/20/16 09/20/16 Unknown History Sertraline HCl [Zoloft] 50 mg PO DAILY 09/20/16 09/20/16 Unknown History metFORMIN [Glucophage] 500 mg PO QDAY 09/20/16 09/20/16 Unknown History traMADol [Ultram] 50 mg PO Q8HR PRN 09/20/16 09/20/16 Unknown History Active Meds: Active Medications Acetaminophen (Tylenol) 650 mg PO Q4H PRN PRN Reason: Pain MILD(1-3)/Fever >100.5/NATARAJAN Albuterol/Ipratropium (Duoneb *Not For Prn Use*) 1 ampul IH Q6HRT [facility] Last Admin: 09/23/16 08:36 Dose: 1 ampul Amiodarone HCl (Cordarone) 200 mg PO DAILY [facility] Last Admin: 09/23/16 10:59 Dose: 200 mg Lipase/Protease/Amylase (Pancreaze Dr 10,500 Unit) 1 each FEEDTUBE PRN PRN PRN Reason: For Clogged Feeding Tube Aspirin (Baby Aspirin) 81 mg PO QDAY [facility] Last Admin: 09/23/16 10:59 Dose: 81 mg Atorvastatin Calcium (Lipitor) 20 mg PO QHS [facility] Last Admin: 09/22/16 22:44 Dose: 20 mg Bisacodyl (Dulcolax) 10 mg UT QDAY [facility] Last Admin: 09/23/16 11:01 Dose: Not Given Carvedilol (Coreg) 12.5 mg PO BID [facility] Last Admin: 09/23/16 11:00 Dose: 12.5 mg Cholestyramine Resin (Questran) 4 gm PO BID [facility] Last Admin: 09/23/16 10:59 Dose: 4 gm Diltiazem HCl (Cardizem) 60 mg PO QID [facility] Last Admin: 09/23/16 10:59 Dose: 60 mg Potassium Chloride 20 meq/Sodium Bicarbonate 75 meq/Dextrose 1,085 mls @ 125 mls/hr IV DIRECT [facility] Last Admin: 09/23/16 11:02 Dose: 125 mls/hr Metronidazole (Flagyl) 500 mg FEEDTUBE Q8H [facility] Last Admin: 09/23/16 11:05 Dose: 500 mg Ondansetron HCl (Zofran) 4 mg IV Q8H PRN PRN Reason: N/V unrelieved by Reglan Pantoprazole Sodium (Protonix) 40 mg PO QDAY [facility] Last Admin: 09/23/16 11:05 Dose: 40 mg Rivaroxaban (Xarelto) 10 mg PO QDAY [facility] PRN Reason: Protocol Last Admin: 09/23/16 11:00 Dose: 10 mg Sertraline HCl (Zoloft) 50 mg PO QDAY [facility] Last Admin: 09/23/16 11:00 Dose: 50 mg Simple Syrup (Simple Syrup) 15 ml FEEDTUBE PRN PRN PRN Reason: Hypoglycemia Simple Syrup (Simple Syrup) 30 ml FEEDTUBE PRN PRN PRN Reason: Hypoglycemia Sodium Bicarbonate (Sodium Bicarbonate) 325 mg FEEDTUBE PRN PRN PRN Reason: For Clogged Feeding Tube Tramadol HCl (Ultram) 50 mg PO Q8HR PRN PRN Reason: Pain Last Admin: 09/23/16 06:35 Dose: 50 mg Physical Examination Vital Signs Temp Pulse Resp BP Pulse Ox 97.8 F 99 H 20 103/66 99 09/20/16 23:28 09/20/16 23:28 09/20/16 23:28 09/20/16 23:28 09/20/16 23:28 General appearance: no acute distress Cardiac: Positive: irregularly irregular Results 09/23/16 04:37 09/23/16 04:37 CBC 09/23/16 Range/Units 04:37 WBC 13.4 H (4.5-11.0) K/mm3 RBC 4.17 (3.65-5.03) M/mm3 Hgb 9.6 L (11.8-15.2) gm/dl Hct 30.0 L (35.5-45.6) % Plt Count 282 (140-440) K/mm3 Comprehensive Metabolic Panel 09/23/16 Range/Units 04:37 Sodium 144 (137-145) mmol/L Potassium 3.4 L (3.6-5.0) mmol/L Chloride 113.7 H (98-107) mmol/L Carbon Dioxide 13 L (22-30) mmol/L BUN 76 H (9-20) mg/dL Creatinine 2.0 H (0.8-1.5) mg/dL Glucose 155 H (75-100) mg/dL Calcium 9.0 (8.4-10.2) mg/dL Assessment and Plan Sepsis C.diff colitis Chronic atrial fibrillation on xarelto for oral anticoagulation Hypertension Prior CVA DM Hx of DCMP now resolved, EF 60-65% on echo this admission Acute on chronic renal disease Hx of obstructive uropathy s/p nephrostomy tube Recommendations; Stop carvedilol and amiodarone. We will reduce the dosage of diltiazem to 30mg every 6hrs. Continue telemetry monitoring.
[2016-09-24] MEDS: CARDIZEM PO SCH ×4 (01:00→18:54)
[2016-09-24] MEDS: D5W IV SCH (01:38)
[2016-09-24] MEDS: SODIUM BICARBONATE IV SCH (01:38)
[2016-09-24] MEDS: KCL IV SCH (01:38)
[2016-09-24] MEDS: DUONEB *Not for PRN Use IH SCH ×4 (02:07→20:36)
[2016-09-24] MEDS: FLAGYL FEEDTUBE SCH ×3 (02:59→18:53)
--- NOTE | 2016-09-24 07:37 | Progress Note ---
Subjective Principal diagnosis: darryl Interval history: Time of evaluation 145 pm Patient was evaluated today for follow-up on multiple renal related issues Events of this hospitalization were noted, Infectious disease notes reviewed Patient does not appear to be any acute distress Vital labs intake and output medications were reviewed Current medications: Reviewed Social history:Reviewed Family history: Reviewed HEENT: No uremic order oral mucosa moist Neck: Supple without any thyromegaly not mass or JVD Chest: Clear to auscultation occasional basilar crackles posteriorly Heart: Regular rate and rhythm S1 and S2 heard no S3-S4 Abdomen: Soft nontender no voluntary guarding rigidity or rebound Extremity: Dry skin minimal edema Psychiatry: No agitation and aggression noted Assessment and plan: Acute kidney injury with underlying chronic kidney disease current creatinine is around 2.0 stable renal function Patient is a need for urology consultation please obtain further intervention as recommended by intervention radiology Does have evidence of superficial tract infection and stitch abscess, Sepsis-like picture currently resolved likely due to acute C. difficile colitis which was moderately severe currently improving Has had right nephrostomy tube with purulence, patient needs to see urology Infectious disease recommendation needs to be followed, continue with metronidazole IV 500 mg every 8 hours change nephrostomy tube Nephrostomy tube to be changed as recommended Overall patient is stable from a renal standpoint We'll continue to follow and make recommendations Objective - Vital Signs Vital signs: Vital Signs - 12hr 09/23/16 09/23/16 09/23/16 20:00 20:40 20:50 Temperature 97.5 F L Pulse Rate 80 Pulse Rate [ 74 78 Anterior Bilateral Throughout] Pulse Rate [ Apical] Respiratory 20 Rate Respiratory Rate [Abdomen] Respiratory 18 18 Rate [Anterior Bilateral Throughout] Blood Pressure 128/78 O2 Sat by Pulse 98 Oximetry 09/23/16 09/24/16 09/24/16 22:00 00:00 01:00 Temperature 98.1 F Pulse Rate 99 H 100 H Pulse Rate [ Anterior Bilateral Throughout] Pulse Rate [ 99 H Apical] Respiratory 20 20 Rate Respiratory 20 Rate [Abdomen] Respiratory Rate [Anterior Bilateral Throughout] Blood Pressure 132/78 130/80 O2 Sat by Pulse 95 95 Oximetry 09/24/16 04:00 Temperature 98.1 F Pulse Rate 74 Pulse Rate [ Anterior Bilateral Throughout] Pulse Rate [ Apical] Respiratory 20 Rate Respiratory Rate [Abdomen] Respiratory Rate [Anterior Bilateral Throughout] Blood Pressure 136/66 O2 Sat by Pulse Oximetry - Lab 09/24/16 07:51 09/24/16 07:51 Most recent lab results Calcium 9.0 mg/dL (8.4-10.2) 09/23/16 04:37 Magnesium 2.70 mg/dL (1.7-2.3) H 09/23/16 12:09
[2016-09-24 08:35] LABS: Hematocrit 30.5 % (35.5-45.6); Hemoglobin 9.7 gm/dl (11.8-15.2); Mean Corpuscular HGB Conc 32 % (32-34); Mean Corpuscular Volume 73 fl (84-94); Platelet Count 249 K/mm3 (140-440); Red Blood Count 4.18 M/mm3 (3.65-5.03); White Blood Count 9.7 K/mm3 (4.5-11.0)
[2016-09-24 08:39] LABS: Mean Corpuscular Hemoglobin 23 pg (28-32); Red Cell Distribution Width 26.1 % (13.2-15.2)
[2016-09-24] MEDS: XARELTO PO SCH (10:03)
[2016-09-24] MEDS: BICITRA PO SCH (10:03)
[2016-09-24] MEDS: QUESTRAN PO SCH ×2 (10:03→22:59)
[2016-09-24] MEDS: ZOLOFT PO SCH (10:04)
[2016-09-24] MEDS: DULCOLAX PR SCH (10:04)
[2016-09-24] MEDS: PROTONIX PO SCH (10:04)
[2016-09-24] MEDS: BABY ASPIRIN PO SCH (10:04)
[2016-09-24 10:58] LABS: BUN/Creatinine Ratio 33.68; Calcium 8.3 mg/dL (8.4-10.2); Chloride 109.5 mmol/L (98-107); Potassium 3.6 mmol/L (3.6-5.0)
--- NOTE | 2016-09-24 11:08 | Progress Note ---
Assessment and Plan Sepsis C.diff colitis Metabolic acidosis Chronic atrial fibrillation on xarelto for oral anticoagulation coreg and amiodarone discontinued d/t slow ventricular response. diltiazem dose reduced Hypertension Prior CVA DM Hx of DCMP now resolved, EF 60-65% on echo this admission Acute on chronic renal disease Hx of obstructive uropathy s/p nephrostomy tube Recommendations: Continue diltiazem for rate control of atrial fibrillation. The patient is on Xarelto therapy for anticoagulation. Otherwise, conservative cardiac management. Subjective Date of service: 09/24/16 Principal diagnosis: darryl Interval history: Patient is resting in bed comfortably. No distress noted. Objective Vital Signs Temp Pulse Pulse Pulse Resp Resp Resp 09/24/16 08:57 69 16 09/24/16 08:40 68 16 09/24/16 07:00 98.7 F 69 18 09/24/16 04:00 98.1 F 74 20 09/24/16 01:00 100 H 09/24/16 00:00 98.1 F 99 H 20 09/23/16 22:00 99 H 20 20 09/23/16 20:50 78 18 09/23/16 20:40 74 18 09/23/16 20:00 97.5 F L 80 20 09/23/16 18:24 80 09/23/16 15:15 97.6 F 80 20 09/23/16 14:10 97 H 16 09/23/16 13:57 94 H 09/23/16 12:40 98.2 F 79 16 BP Pulse Ox 09/24/16 08:57 09/24/16 08:40 09/24/16 07:00 132/81 100 09/24/16 04:00 136/66 09/24/16 01:00 130/80 09/24/16 00:00 132/78 95 09/23/16 22:00 95 09/23/16 20:50 09/23/16 20:40 09/23/16 20:00 128/78 98 09/23/16 18:24 120/78 09/23/16 15:15 112/70 100 09/23/16 14:10 09/23/16 13:57 09/23/16 12:40 145/75 - Physical Examination General: No Apparent Distress Cardiac: Positive: irregularly irregular - Labs and Meds CBC 09/24/16 Range/Units 07:51 WBC 9.7 (4.5-11.0) K/mm3 RBC 4.18 (3.65-5.03) M/mm3 Hgb 9.7 L (11.8-15.2) gm/dl Hct 30.5 L (35.5-45.6) % Plt Count 249 (140-440) K/mm3 Comprehensive Metabolic Panel 09/24/16 Range/Units 07:51 Sodium 141 (137-145) mmol/L Potassium 3.6 (3.6-5.0) mmol/L Chloride 109.5 H (98-107) mmol/L Carbon Dioxide 15 L (22-30) mmol/L BUN 64 H (9-20) mg/dL Creatinine 1.9 H (0.8-1.5) mg/dL Glucose 120 H (75-100) mg/dL Calcium 8.3 L (8.4-10.2) mg/dL
--- NOTE | 2016-09-24 11:21 | Consultation ---
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 Patient is unable to give a provide any significant history. Report is taken from POA/fiance. Past History Past Medical History: atrial fib, diabetes, hypertension, hyperlipidemia, renal failure, stroke, other (obtructive uropathy s/p right NT) Medications and Allergies Allergies Allergy/AdvReac Type Severity Reaction Status Date / Time No Known Allergies Allergy Unverified 09/20/16 23:22 Home Medications Medication Instructions Recorded Confirmed Last Taken Type Carvedilol [Coreg] 25 mg PO BID #60 tablet 11/25/14 05/26/16 1 Day Ago Rx Warfarin [Coumadin] 7.5 mg PO QDAY #30 tablet 11/25/14 05/26/16 1 Day Ago Rx metFORMIN [Glucophage] 500 mg PO QDAY #30 tab 11/25/14 05/27/16 1 Week Ago Rx Lisinopril/Hydrochlorothiazide 1 tab PO QDAY 11/05/15 05/26/16 1 Day Ago History [Zestoretic 20-12.5 mg] Sertraline HCl [Zoloft] 50 mg PO DAILY 11/05/15 05/26/16 1 Day Ago History amLODIPine [Norvasc] 5 mg PO DAILY 11/05/15 05/26/16 1 Day Ago History cloNIDine [Catapres] 0.2 mg PO BID 11/05/15 05/26/16 1 Day Ago History Aspirin [Aspirin TAB] 325 mg PO QDAY #30 tablet 06/01/16 Unknown Rx Bisacodyl [Dulcolax suppos] 10 mg AR QDAY PRN #30 supp.rect 06/01/16 Unknown Rx Carvedilol [Coreg] 25 mg PO BID #30 tablet 06/01/16 Unknown Rx Hydrochlorothiazide [HCTZ] 12.5 mg PO QDAY capsule 06/01/16 Unknown Rx Pantoprazole [Protonix TAB] 40 mg PO DAILY tablet 06/01/16 Unknown Rx Sertraline [Zoloft] 50 mg PO QDAY tablet 06/01/16 Unknown Rx Simvastatin [Zocor TAB] 40 mg PO QHS #30 tablet 06/01/16 Unknown Rx amLODIPine [Norvasc] 5 mg PO DAILY #30 tablet 06/01/16 Unknown Rx cloNIDine [Catapres] 0.2 mg PO BID #30 tablet 06/01/16 Unknown Rx metFORMIN [Glucophage] 500 mg PO QDDIAB tablet 06/01/16 Unknown Rx Amiodarone [Cordarone 200 MG TAB] 200 mg PO DAILY 09/20/16 09/20/16 Unknown History Aspirin [Aspirin BABY CHEW TAB] 81 mg PO QDAY 09/20/16 09/20/16 Unknown History AtorvaSTATin [Lipitor] 20 mg PO QHS 09/20/16 09/20/16 Unknown History Bisacodyl [Dulcolax suppos] 10 mg AR QDAY 09/20/16 09/20/16 Unknown History Carvedilol [Coreg] 12.5 mg PO BID 09/20/16 09/20/16 Unknown History Cholestyramine (with Sugar) 378 gm PO BID 09/20/16 09/20/16 Unknown History [Cholestyramine Powder] Diltiazem [CarDIZEM] 60 mg PO QID 09/20/16 09/20/16 Unknown History Insulin Aspart [NovoLOG Flexpen] 0 units SQ ACHS 09/20/16 09/20/16 Unknown History Ipratropium [Atrovent] 0.5 mg IH Q6HRT 09/20/16 09/20/16 Unknown History Pantoprazole [Protonix] 40 mg PO QDAY 09/20/16 09/20/16 Unknown History Rivaroxaban [Xarelto] 10 mg PO QDAY 09/20/16 09/20/16 Unknown History Sertraline HCl [Zoloft] 50 mg PO DAILY 09/20/16 09/20/16 Unknown History metFORMIN [Glucophage] 500 mg PO QDAY 09/20/16 09/20/16 Unknown History traMADol [Ultram] 50 mg PO Q8HR PRN 08/14/17 08/14/17 Unknown History Active Meds: Active Medications Acetaminophen (Tylenol) 650 mg PO Q4H PRN PRN Reason: Pain MILD(1-3)/Fever >100.5/NATARAJAN Albuterol/Ipratropium (Duoneb *Not For Prn Use*) 1 ampul IH Q6HRT [facility] Last Admin: 09/24/16 08:41 Dose: 1 ampul Lipase/Protease/Amylase (Pancreaze Dr 10,500 Unit) 1 each FEEDTUBE PRN PRN PRN Reason: For Clogged Feeding Tube Aspirin (Baby Aspirin) 81 mg PO QDAY [facility] Last Admin: 09/24/16 10:04 Dose: 81 mg Atorvastatin Calcium (Lipitor) 20 mg PO QHS [facility] Last Admin: 09/23/16 22:18 Dose: 20 mg Bisacodyl (Dulcolax) 10 mg AR QDAY [facility] Last Admin: 09/24/16 10:04 Dose: Not Given Cholestyramine Resin (Questran) 4 gm PO BID [facility] Last Admin: 09/24/16 10:03 Dose: 4 gm Citric Acid/Sodium Citrate (Bicitra) 20 ml PO DAILY [facility] Stop: 09/28/16 10:01 Last Admin: 09/24/16 10:03 Dose: 20 ml Diltiazem HCl (Cardizem) 30 mg PO Q6HR [facility] Last Admin: 09/24/16 01:00 Dose: 30 mg Potassium Chloride 20 meq/Sodium Bicarbonate 75 meq/Dextrose 1,085 mls @ 125 mls/hr IV DIRECT [facility] Last Admin: 09/24/16 01:38 Dose: 125 mls/hr Metronidazole (Flagyl) 500 mg FEEDTUBE Q8H [facility] Last Admin: 09/24/16 10:05 Dose: 500 mg Ondansetron HCl (Zofran) 4 mg IV Q8H PRN PRN Reason: N/V unrelieved by Reglan Pantoprazole Sodium (Protonix) 40 mg PO QDAY [facility] Last Admin: 09/24/16 10:04 Dose: 40 mg Rivaroxaban (Xarelto) 10 mg PO QDAY [facility] PRN Reason: Protocol Last Admin: 09/24/16 10:03 Dose: 10 mg Sertraline HCl (Zoloft) 50 mg PO QDAY [facility] Last Admin: 09/24/16 10:04 Dose: 50 mg Simple Syrup (Simple Syrup) 15 ml FEEDTUBE PRN PRN PRN Reason: Hypoglycemia Simple Syrup (Simple Syrup) 30 ml FEEDTUBE PRN PRN PRN Reason: Hypoglycemia Sodium Bicarbonate (Sodium Bicarbonate) 325 mg FEEDTUBE PRN PRN PRN Reason: For Clogged Feeding Tube Tramadol HCl (Ultram) 50 mg PO Q8HR PRN PRN Reason: Pain Last Admin: 09/23/16 22:17 Dose: 50 mg Review of Systems All systems: negative (see HPI) Exam - Constitutional Vitals: Temp Pulse Resp BP Pulse Ox 98.7 F 69 16 132/81 100 09/24/16 07:00 09/24/16 08:57 09/24/16 08:57 09/24/16 07:00 09/24/16 07:00 General appearance: Present: other (AMS) - Respiratory Respiratory effort: normal - Abdominal General gastrointestinal: Present: other (right nephrostomy tube) - Psychiatric Psychiatric: other (AMS) Results - Labs CBC & Chem 7: 09/24/16 07:51 09/24/16 07:51 Labs: Abnormal lab results 09/23/16 09/23/16 09/23/16 Range/Units 12:09 12:17 16:15 Hgb (11.8-15.2) gm/dl Hct (35.5-45.6) % MCV (84-94) fl MCH (28-32) pg RDW (13.2-15.2) % Chloride (98-107) mmol/L Carbon Dioxide (22-30) mmol/L BUN (9-20) mg/dL Creatinine (0.8-1.5) mg/dL Glucose (75-100) mg/dL POC Glucose 183 H 181 H (70-105) Calcium (8.4-10.2) mg/dL Magnesium 2.70 H (1.7-2.3) mg/dL 09/23/16 09/24/16 09/24/16 Range/Units 21:33 06:37 07:51 Hgb (11.8-15.2) gm/dl Hct (35.5-45.6) % MCV (84-94) fl MCH (28-32) pg RDW (13.2-15.2) % Chloride 109.5 H (98-107) mmol/L Carbon Dioxide 15 L (22-30) mmol/L BUN 64 H (9-20) mg/dL Creatinine 1.9 H (0.8-1.5) mg/dL Glucose 120 H (75-100) mg/dL POC Glucose 144 H 147 H (70-105) Calcium 8.3 L (8.4-10.2) mg/dL Magnesium (1.7-2.3) mg/dL 09/24/16 Range/Units 07:51 Hgb 9.7 L (11.8-15.2) gm/dl Hct 30.5 L (35.5-45.6) % MCV 73 L (84-94) fl MCH 23 L (28-32) pg RDW 26.1 H (13.2-15.2) % Chloride (98-107) mmol/L Carbon Dioxide (22-30) mmol/L BUN (9-20) mg/dL Creatinine (0.8-1.5) mg/dL Glucose (75-100) mg/dL POC Glucose (70-105) Calcium (8.4-10.2) mg/dL Magnesium (1.7-2.3) mg/dL - Imaging and Cardiology US - abdomen: report reviewed, image reviewed Assessment and Plan 61-year-old male detention resident who is nonverbal status post CVA with left hemiparesis with atrial fibrillation actively on anticoagulation with sepsis and right sided nephrostomy tube actively leaking purulent drainage. Ultrasound was evaluated demonstrating a catheter in the collecting system, although no x-rays have been taken at this time of the collecting system. The patient's fianc reports that the patient has indwelling ureteral stents as well which can be evaluated fluoroscopically at the time of nephrostomy tube exchange. Given acute infection/sepsis, and overt pyonephrosis without sonographic evidence of hydronephrosis, the patient would benefit from nephrostomy tube exchange to optimize drainage of the kidney, and urology consult should be considered for timing of management of possible ureteral stents. Made patient nothing by mouth except for medications. Stopped G-tube feeds. Plan for exchange today.
--- NOTE | 2016-09-24 11:28 | Progress Note ---
Assessment and Plan Assessment: 1) Sepsis: resolved. Etiology - secondary to acute C diff colitis. 2) Acute C diff colitis- moderate: improving 3) Right nephrostomy tube with purulence: UA negative on admission. US kidney showed no kidney stones, no hydronephrosis. Right NT cultures growing Staph aureous, GNR and GR[employer] PAVER ? colonizers. 4) Acute on CKD 5) Recent CVA with left hemiparesia and aphasia 6) A fib 7) Anemia Plan: -continue metronidazole 500 mg IV q 8 hours since he has responded well -right nephrostomy tube to be exchanged, appreciate Dr Perez and IR input -avoid broad-spectrum antibiotics as possible -upon discharge continue metronidazole 500 mg PO q 8 hours for total 10 days from 09/21 until 09/30/[address] Maria for your consultation, will f/u with you Agnes Rodriguez MD Infectious Diseases Specialist [facility] ([facility]) M [phone] O [phone] Subjective Date of service: 09/24/16 Principal diagnosis: C diff Interval history: Feels better. Non verbal but communicates by nodding. No fever. Per NS diarrhea is better. Objective - Exam Narrative Exam: General appearance: Alert in NAD, non verbal due to aphasia Eyes: anicteric sclerae, moist conjunctivae; PERRLA HENT: Atraumatic; oropharynx clear no oral thrush; normal hard and soft palate. Normal external ears. Neck: Trachea midline; supple, no thyromegaly or lymphadenopathy Lungs: CTA CV: RRR, no murmur Abdomen: Soft, non-tender; no masses or hepatosplenomegaly. PEG in place : right NT with cloudy urine Extremities: ++peripheral edema or extremity lymphadenopathy Skin: Normal temperature, turgor and texture; no rash, ulcers or subcutaneous nodules Psych: Appropriate affect, alert and oriented to person, place and time. Neuro: alert and oriented x 1.Right hemiparesis Lines: No CVL / PICC - Constitutional Vitals: Vital Signs Temp Pulse Resp BP Pulse Ox 98.7 F 69 16 132/81 100 09/24/16 07:00 09/24/16 08:57 09/24/16 08:57 09/24/16 07:00 09/24/16 07:00 Temperature -Last 24 Hours Temperature 98.7 F Temperature 98.1 F Temperature 98.1 F Temperature 97.5 F Temperature 97.6 F Temperature 98.2 F - Labs CBC & Chem 7: 09/24/16 07:51 09/24/16 07:51 Labs: Abnormal lab results 09/23/16 09/23/16 09/23/16 Range/Units 12:09 12:17 16:15 Hgb (11.8-15.2) gm/dl Hct (35.5-45.6) % MCV (84-94) fl MCH (28-32) pg RDW (13.2-15.2) % Chloride (98-107) mmol/L Carbon Dioxide (22-30) mmol/L BUN (9-20) mg/dL Creatinine (0.8-1.5) mg/dL Glucose (75-100) mg/dL POC Glucose 183 H 181 H (70-105) Calcium (8.4-10.2) mg/dL Magnesium 2.70 H (1.7-2.3) mg/dL 09/23/16 09/24/16 09/24/16 Range/Units 21:33 06:37 07:51 Hgb (11.8-15.2) gm/dl Hct (35.5-45.6) % MCV (84-94) fl MCH (28-32) pg RDW (13.2-15.2) % Chloride 109.5 H (98-107) mmol/L Carbon Dioxide 15 L (22-30) mmol/L BUN 64 H (9-20) mg/dL Creatinine 1.9 H (0.8-1.5) mg/dL Glucose 120 H (75-100) mg/dL POC Glucose 144 H 147 H (70-105) Calcium 8.3 L (8.4-10.2) mg/dL Magnesium (1.7-2.3) mg/dL 09/24/16 Range/Units 07:51 Hgb 9.7 L (11.8-15.2) gm/dl Hct 30.5 L (35.5-45.6) % MCV 73 L (84-94) fl MCH 23 L (28-32) pg RDW 26.1 H (13.2-15.2) % Chloride (98-107) mmol/L Carbon Dioxide (22-30) mmol/L BUN (9-20) mg/dL Creatinine (0.8-1.5) mg/dL Glucose (75-100) mg/dL POC Glucose (70-105) Calcium (8.4-10.2) mg/dL Magnesium (1.7-2.3) mg/dL
[2016-09-24] MEDS ORDERED: XYLOCAINE 1% 20 mL ONE (13:40)
[2016-09-24] MEDS ORDERED: NACL 0.9% 250ML 250 ML ONE (13:40)
--- NOTE | 2016-09-24 14:29 | Operative Report ---
Operative Report Operative Report: EXAM: 1. Nephrostogram through the indwelling right 10 Cambodian nephrostomy tube. 2. Right-sided 10 Cambodian nephrostomy tube exchange DATE: 09/24/16 IOS PROGRAMMER: GUEVARA GARRISON MD INDICATION: Pyonephrosis of the right kidney with indwelling nephrostomy tube who requires an exchange. MEDICATIONS: Please see nursing report for full details. DEVICES: 10 Cambodian nephrostomy tube CONTRAST: 25 mL of nonionic contrast PROCEDURE: The risks, benefits, and alternatives were discussed with the patient; written informed consent was obtained. The patient was brought to the angiography suite in satisfactory condition. The patient was placed in a prone position. The tubes were prepped and draped in a sterile fashion. The right nephrostomy tube was evaluated and determined to be intact. The tract demonstrated evidence of a small amount of purulent drainage at the stitch site and the beginnings of a superficial tract infection. 1% lidocaine was injected around the nephrostomy tube for local anesthetic. Contrast was injected through the existing nephrostomy tube confirming position. The nephrostomy tube was cut. 0.035 inch [place] wire was passed into the renal collecting system. The nephrostomy tube was removed over a wire. A new nephrostomy tube was advanced over the wire into the collecting system. The wire and plastic stiffener were removed under fluoroscopic guidance. [place] loop was formed in the renal pelvis. Contrast was injected confirming position in the renal pelvis. Contrast was then aspirated and saline was injected and aspirated through the collecting system. The catheter was secured with a 2-0 Ethilon. Sterile dressing was applied. The catheter was connected to a drainage bag. The patient tolerated the procedure without issue. The patient was transferred to the OPPU area without issue. FINDINGS: 1. The right sided nephrostogram demonstrated debris on the initial imaging study which was aspirated out at the conclusion of the study. There is mild hydronephrosis with minimal contrast injection and complete obstruction of the proximal ureter from the suggestion of a renal calculus. No evidence of ureteral stents. 2. Successful fluoroscopic guided exchange of a right-sided 10 Cambodian nephrostomy tube. IMPRESSION: Successful nephrostogram and nephrostomy tube exchange of a sided 10 Cambodian nephrostomy tube.
--- NOTE | 2016-09-24 14:55 | Progress Note ---
Assessment and Plan The nephrostomy tube has been exchanged and is now in appropriate position. There is an obstructing proximal ureteral calculi with the nephrostomy tube providing drainage of the collecting system. If the nephrostomy tube is removed , the patient will develop hydronephrosis and infection. No ureteral stents present. Recommend urology consult for the obstructing proximal ureteral calculi. Recommend CT of the abdomen and pelvis without contrast. Evidence of superficial tract infection and stitch abscess which was drained with prior stitch removed. Needs antibiotics for 2 weeks for tract infection of nephrostomy tube. ID is already consulted. Will defer antibiotics to ID. Will need nephrostomy tube exchanged every 10 weeks for as long as the tube is present. Subjective Principal diagnosis: C diff Objective - Constitutional Vitals: Vital Signs - 12hr 09/24/16 09/24/16 09/24/16 04:00 07:00 08:40 Temperature 98.1 F 98.7 F Pulse Rate 74 69 Pulse Rate [ 68 Anterior Bilateral Throughout] Respiratory 20 18 Rate Respiratory 16 Rate [Anterior Bilateral Throughout] Blood Pressure 136/66 132/81 O2 Sat by Pulse 100 Oximetry 09/24/16 08:57 Temperature Pulse Rate Pulse Rate [ 69 Anterior Bilateral Throughout] Respiratory Rate Respiratory 16 Rate [Anterior Bilateral Throughout] Blood Pressure O2 Sat by Pulse Oximetry - Labs CBC & Chem 7: 09/24/16 07:51 09/24/16 07:51 Labs: Abnormal lab results 09/23/16 09/23/16 09/23/16 Range/Units 12:17 16:15 21:33 Hgb (11.8-15.2) gm/dl Hct (35.5-45.6) % MCV (84-94) fl MCH (28-32) pg RDW (13.2-15.2) % Chloride (98-107) mmol/L Carbon Dioxide (22-30) mmol/L BUN (9-20) mg/dL Creatinine (0.8-1.5) mg/dL Glucose (75-100) mg/dL POC Glucose 183 H 181 H 144 H (70-105) Calcium (8.4-10.2) mg/dL 09/24/16 09/24/16 09/24/16 Range/Units 06:37 07:51 07:51 Hgb 9.7 L (11.8-15.2) gm/dl Hct 30.5 L (35.5-45.6) % MCV 73 L (84-94) fl MCH 23 L (28-32) pg RDW 26.1 H (13.2-15.2) % Chloride 109.5 H (98-107) mmol/L Carbon Dioxide 15 L (22-30) mmol/L BUN 64 H (9-20) mg/dL Creatinine 1.9 H (0.8-1.5) mg/dL Glucose 120 H (75-100) mg/dL POC Glucose 147 H (70-105) Calcium 8.3 L (8.4-10.2) mg/dL
[2016-09-24] MEDS ORDERED: PANCREAZE DR 10,500 UNIT FEEDTUBE PRN (16:04)
[2016-09-24] MEDS ORDERED: SODIUM BICARBONATE FEEDTUBE PRN (16:04)
[2016-09-24] MEDS ORDERED: SIMPLE SYRUP FEEDTUBE PRN ×2 (16:04)
--- NOTE | 2016-09-24 19:19 | Progress Note ---
Assessment and Plan Assessment and plan: 61-year-old male from [facility] with a history of hypertension, A. 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 difficile colitis. 1. Sepsis due to C. difficile colitis - continue treatment with Flagyl 2. ARF superimposed on CKD - improving, nephrology following 3. Obstructive uropathy with right nephrostomy tube with pyuria - culture growing GNR, staph aureus. GNS, but WBC trending down on Flagyl alone; colonizers ?; Monitor of those spectrum antibiotics; ID following Nephrostomy tube recommended to be exchanged every 10 weeks 4. A. fib - rate controlled on CCB and anticoagulated with Xarelto 5. Diabetes - insulin/SSI 6. Recent CVA with residual left hemiparesis and aphasia, status post PEG placement - on asp/statin 7. DVT prophylaxis - on Xarelto 8. Malnutrition TF per dieticien recommendation 9. Anemia - anemia of CKD, chronic inflamation; monitor H&H History Interval history: nonverbal, but answers by nodding; feeling better Hospitalist Physical - Constitutional Vitals: Temp Pulse Resp BP Pulse Ox 98.7 F 80 20 118/78 100 09/24/16 07:00 09/24/16 18:54 09/24/16 16:26 09/24/16 18:54 09/24/16 07:00 General appearance: Present: no acute distress, other (AMS) - EENT Eyes: Present: PERRL, EOM intact - Neck Neck: Present: supple, normal ROM. Absent: masses or JVD - Respiratory Respiratory effort: normal Respiratory: bilateral: CTA, negative: rhonchi, wheezing - Cardiovascular Rhythm: regular Heart Sounds: Present: S1 & S2. Absent: systolic murmur - Extremities Extremities: no ischemia - Abdominal General gastrointestinal: soft, non-tender, non-distended, normal bowel sounds Results - Labs CBC & Chem 7: 09/25/16 05:00 09/26/16 05:12 Labs: Laboratory Last Values WBC 9.7 K/mm3 (4.5-11.0) 09/24/16 07:51 RBC 4.18 M/mm3 (3.65-5.03) 09/24/16 07:51 Hgb 9.7 gm/dl (11.8-15.2) L 09/24/16 07:51 Hct 30.5 % (35.5-45.6) L 09/24/16 07:51 MCV 73 fl (84-94) L 09/24/16 07:51 MCH 23 pg (28-32) L 09/24/16 07:51 MCHC 32 % (32-34) 09/24/16 07:51 RDW 26.1 % (13.2-15.2) H 09/24/16 07:51 Plt Count 249 K/mm3 (140-440) 09/24/16 07:51 Add Manual Diff Complete 09/22/16 03:58 Total Counted 100 09/22/16 03:58 Seg Neuts % (Manual) 76.0 % (40.0-70.0) H 09/22/16 03:58 Band Neutrophils % 2.0 % 09/22/16 03:58 Lymphocytes % (Manual) 10.0 % (13.4-35.0) L 09/22/16 03:58 Reactive Lymphs % (Man) 0 % 09/22/16 03:58 Monocytes % (Manual) 12.0 % (0.0-7.3) H 09/22/16 03:58 Eosinophils % (Manual) 0 % (0.0-4.3) 09/22/16 03:58 Basophils % (Manual) 0 % (0.0-1.8) 09/22/16 03:58 Metamyelocytes % 0 % 09/22/16 03:58 Myelocytes % 0 % 09/22/16 03:58 Promyelocytes % 0 % 09/22/16 03:58 Blast Cells % 0 % 09/22/16 03:58 Nucleated RBC % Not Reportable 09/22/16 03:58 Seg Neutrophils # Man 12.2 K/mm3 (1.8-7.7) H 09/22/16 03:58 Band Neutrophils # 0.3 K/mm3 09/22/16 03:58 Lymphocytes # (Manual) 1.6 K/mm3 (1.2-5.4) 09/22/16 03:58 Abs React Lymphs (Man) 0.0 K/mm3 09/22/16 03:58 Monocytes # (Manual) 1.9 K/mm3 (0.0-0.8) H 09/22/16 03:58 Eosinophils # (Manual) 0.0 K/mm3 (0.0-0.4) 09/22/16 03:58 Basophils # (Manual) 0.0 K/mm3 (0.0-0.1) 09/22/16 03:58 Metamyelocytes # 0.0 K/mm3 09/22/16 03:58 Myelocytes # 0.0 K/mm3 09/22/16 03:58 Promyelocytes # 0.0 K/mm3 09/22/16 03:58 Blast Cells # 0.0 K/mm3 09/22/16 03:58 WBC Morphology Not Reportable 09/22/16 03:58 Hypersegmented Neuts Not Reportable 09/22/16 03:58 Hyposegmented Neuts Not Reportable 09/22/16 03:58 Hypogranular Neuts Not Reportable 09/22/16 03:58 Smudge Cells Not Reportable 09/22/16 03:58 Toxic Granulation Not Reportable 09/22/16 03:58 Toxic Vacuolation Not Reportable 09/22/16 03:58 Dohle Bodies Not Reportable 09/22/16 03:58 Pelger-Huet Anomaly Not Reportable 09/22/16 03:58 [place] Rods Not Reportable 09/22/16 03:58 Platelet Estimate Consistent w auto 09/22/16 03:58 Clumped Platelets Not Reportable 09/22/16 03:58 Plt Clumps, EDTA Not Reportable 09/22/16 03:58 Large Platelets Not Reportable 09/22/16 03:58 Giant Platelets Not Reportable 09/22/16 03:58 Platelet Satelliting Not Reportable 09/22/16 03:58 Plt Morphology Comment Not Reportable 09/22/16 03:58 RBC Morphology Not Reportable 09/22/16 03:58 Dimorphic RBCs Not Reportable 09/22/16 03:58 Polychromasia Not Reportable 09/22/16 03:58 Hypochromasia 1+ 09/22/16 03:58 Poikilocytosis Not Reportable 09/22/16 03:58 Anisocytosis 3+ 09/22/16 03:58 Microcytosis Not Reportable 09/22/16 03:58 Macrocytosis Not Reportable 09/22/16 03:58 Spherocytes Not Reportable 09/22/16 03:58 Pappenheimer Bodies Not Reportable 09/22/16 03:58 Sickle Cells Not Reportable 09/22/16 03:58 Target Cells Not Reportable 09/22/16 03:58 Tear Drop Cells Not Reportable 09/22/16 03:58 Ovalocytes Not Reportable 09/22/16 03:58 Helmet Cells Not Reportable 09/22/16 03:58 [place] Bodies Not Reportable 09/22/16 03:58 [place] Rings Not Reportable 09/22/16 03:58 [place]den Cells Not Reportable 09/22/16 03:58 Bite Cells Not Reportable 09/22/16 03:58 Crenated Cell Not Reportable 09/22/16 03:58 Elliptocytes Not Reportable 09/22/16 03:58 Acanthocytes (Spur) Not Reportable 09/22/16 03:58 Rouleaux Not Reportable 09/22/16 03:58 Hemoglobin C Crystals Not Reportable 09/22/16 03:58 Schistocytes Rare 09/22/16 03:58 Malaria parasites Not Reportable 09/22/16 03:58 [place] Bodies Not Reportable 09/22/16 03:58 Hem Pathologist Commnt No 09/22/16 03:58 PT 15.7 Sec. (12.2-14.9) H 09/20/16 23:49 INR 1.26 (0.87-1.13) H 09/20/16 23:49 APTT 30.1 Sec. (24.2-36.6) 09/20/16 23:49 Sodium 141 mmol/L (137-145) 09/24/16 07:51 Potassium 3.6 mmol/L (3.6-5.0) 09/24/16 07:51 Chloride 109.5 mmol/L (98-107) H 09/24/16 07:51 Carbon Dioxide 15 mmol/L (22-30) L 09/24/16 07:51 Anion Gap 20 mmol/L 09/24/16 07:51 BUN 64 mg/dL (9-20) H 09/24/16 07:51 Creatinine 1.9 mg/dL (0.8-1.5) H 09/24/16 07:51 Estimated GFR 44 ml/min 09/24/16 07:51 BUN/Creatinine Ratio 33.68 % 09/24/16 07:51 Glucose 120 mg/dL (75-100) H 09/24/16 07:51 POC Glucose 152 (70-105) H 09/24/16 17:49 Lactic Acid 0.90 mmol/L (0.7-2.0) 09/21/16 01:03 Calcium 8.3 mg/dL (8.4-10.2) L 09/24/16 07:51 Magnesium 2.70 mg/dL (1.7-2.3) H 09/23/16 12:09 Total Bilirubin 0.20 mg/dL (0.1-1.2) 09/20/16 23:42 AST 13 units/L (5-40) 09/20/16 23:42 ALT 13 units/L (7-56) 09/20/16 23:42 Alkaline Phosphatase 73 units/L (35-129) 09/20/16 23:42 Total Creatine Kinase 53 units/L (55-170) L 09/21/16 11:23 CK-MB (CK-2) 1.7 ng/mL (0.0-4.0) 09/21/16 11:23 CK-MB (CK-2) Rel Index 3.2 (0-4) 09/21/16 11:23 Troponin T 0.033 ng/mL (0.00-0.029) H 09/21/16 11:23 NT-Pro-B Natriuret Pep 2195 pg/mL (0-900) H 09/20/16 23:42 Total Protein 7.4 g/dL (6.3-8.2) 09/20/16 23:42 Albumin 2.7 g/dL (3.9-5) L 09/20/16 23:42 Albumin/Globulin Ratio 0.6 % 09/20/16 23:42 Triglycerides 164 mg/dL (2-149) H 09/20/16 23:42 Cholesterol 95 mg/dL (50-199) 09/20/16 23:42 LDL Cholesterol Direct 43 mg/dL (50-130) L 09/20/16 23:42 HDL Cholesterol 20 mg/dL (40-59) L 09/20/16 23:42 Cholesterol/HDL Ratio 4.75 % 09/20/16 23:42 Urine Color Yellow (Yellow) 09/21/16 17:12 Urine Turbidity Clear (Clear) 09/21/16 17:12 Urine pH 6.0 (5.0-7.0) 09/21/16 17:12 Ur Specific [place] 1.016 (1.003-1.030) 09/21/16 17:12 Urine Protein 30 mg/dl mg/dL (Negative) 09/21/16 17:12 Urine Glucose (UA) Neg mg/dL (Negative) 09/21/16 17:12 Urine Ketones Neg mg/dL (Negative) 09/21/16 17:12 Urine Blood Neg (Negative) 09/21/16 17:12 Urine Nitrite Neg (Negative) 09/21/16 17:12 Urine Bilirubin Neg (Negative) 09/21/16 17:12 Urine Urobilinogen < 2.0 mg/dL (<2.0) 09/21/16 17:12 Ur Leukocyte Esterase Tr (Negative) 09/21/16 17:12 Urine WBC (Auto) 6.0 /HPF (0.0-6.0) 09/21/16 17:12 Urine RBC (Auto) 1.0 /HPF (0.0-6.0) 09/21/16 17:12 U Epithel Cells (Auto) < 1.0 /HPF (0-13.0) 09/21/16 17:12 Urine Bacteria (Auto) 2+ /HPF (Negative) 09/21/16 17:12 Urine Mucus Few /HPF 09/21/16 17:12 Urine Eosinophils None seen (None Seen) 09/21/16 17:12
[2016-09-24] MEDS: NOVOLOG SUB-Q SCH (23:15)
--- NOTE | 2016-09-24 23:15 | Cat Scan Report ---
FINAL REPORT PROCEDURE: CT ABDOMEN PELVIS WO CON TECHNIQUE: Computerized axial tomography of the abdomen and pelvis was performed without intravenous contrast. This study is performed without intravascular contrast material and its sensitivity for abdominal and pelvic pathology, including neoplasms, inflammation, abscess, free fluid, thrombosis, arterial dissection and infarction, is reduced compared with a contrast enhanced study. HISTORY: right ureteral calculi COMPARISON: No prior studies are available for comparison. FINDINGS: Atelectatic changes are noted involving bilateral lung bases. Trace right pleural effusion is identified. There is mild cardiomegaly evaluation of the abdomen and pelvis is limited due to streak artifacts from the arms and external hardware., Spleen, pancreas and adrenal glands are within normal limits. A right nephrostomy catheter is identified with the pigtail located in the renal pelvis. Mild degree air is identified in the right collecting system. There are 2 calculi in the proximal right ureter, larger measuring 10 millimeters x 6 millimeters and the smaller measuring 3 millimeters x 3 millimeters. Left kidney is free of any calculi or hydronephrosis. Aorta is of normal caliber. There is no free fluid or free air. Gallbladder is contracted. Small bowel loops are within normal limits. Air-fluid levels are noted in the colon. Appendix is normal. A small fat containing uncomplicated left inguinal hernia is noted. Mild degree degenerative changes are noted involving the lumbar spine IMPRESSION: Proximal right ureteral calculi as described above with a nephrostomy catheter in place. There is no hydronephrosis Trace right pleural effusion Mild cardiomegaly Air-fluid levels in the colon may represent enterocolitis..
[2016-09-25] MEDS: DUONEB *Not for PRN Use IH SCH ×3 (01:27→14:12)
[2016-09-25] MEDS: KCL IV SCH ×2 (01:55→14:42)
[2016-09-25] MEDS: SODIUM BICARBONATE IV SCH ×2 (01:55→14:42)
[2016-09-25] MEDS: D5W IV SCH ×2 (01:55→14:42)
[2016-09-25] MEDS: CARDIZEM PO SCH ×4 (02:03→18:59)
[2016-09-25] MEDS: FLAGYL FEEDTUBE SCH ×3 (02:07→19:07)
[2016-09-25 05:13] LABS: Hematocrit 25.8 % (35.5-45.6); Hemoglobin 8.4 gm/dl (11.8-15.2); Mean Corpuscular HGB Conc 33 % (32-34); Mean Corpuscular Volume 71 fl (84-94); Platelet Count 271 K/mm3 (140-440); Red Blood Count 3.62 M/mm3 (3.65-5.03); White Blood Count 7.8 K/mm3 (4.5-11.0)
[2016-09-25 05:24] LABS: Mean Corpuscular Hemoglobin 23 pg (28-32); Red Cell Distribution Width 25.9 % (13.2-15.2)
[2016-09-25 05:35] LABS: BUN/Creatinine Ratio 33.33; Chloride 107.7 mmol/L (98-107); Potassium 3.7 mmol/L (3.6-5.0)
[2016-09-25] MEDS: NOVOLOG SUB-Q SCH ×3 (08:17→17:40)
--- NOTE | 2016-09-25 08:33 | Progress Note ---
Assessment and Plan Sepsis C.diff colitis Metabolic acidosis Chronic atrial fibrillation on xarelto for oral anticoagulation coreg and amiodarone discontinued d/t slow ventricular response. diltiazem dose reduced Hypertension Prior CVA DM Hx of DCMP now resolved, EF 60-65% on echo this admission Acute on chronic renal disease Hx of obstructive uropathy s/p nephrostomy tube Recommendations: Continue diltiazem for rate control of atrial fibrillation. The patient is on Xarelto therapy for anticoagulation. Otherwise, conservative cardiac management. Subjective Date of service: 09/25/16 Principal diagnosis: darryl Interval history: No interval changes cardiac martinez Objective Vital Signs Temp Pulse Pulse Resp Resp BP Pulse Ox 09/25/16 08:25 79 15 09/25/16 05:40 110 H 139/92 09/25/16 04:00 98.8 F 77 22 150/86 100 09/25/16 02:03 108 H 152/75 09/25/16 01:40 71 15 09/25/16 01:27 74 16 09/24/16 20:47 80 16 09/24/16 20:36 77 15 09/24/16 20:00 97.4 F L 69 20 158/76 99 09/24/16 18:54 80 118/78 09/24/16 18:00 72 20 132/81 09/24/16 17:00 80 20 128/78 09/24/16 16:26 83 20 09/24/16 16:12 82 20 09/24/16 16:00 76 20 110/76 09/24/16 15:30 80 20 128/80 09/24/16 15:00 72 20 108/76 09/24/16 14:45 80 20 110/78 09/24/16 08:57 69 16 09/24/16 08:40 68 16 - Physical Examination General: No Apparent Distress Neck: Positive: neck supple Cardiac: Positive: irregularly irregular Lungs: Positive: Decreased Breath Sounds - Labs and Meds CBC 09/24/16 09/25/16 Range/Units 07:51 05:00 WBC 9.7 7.8 (4.5-11.0) K/mm3 RBC 4.18 3.62 L (3.65-5.03) M/mm3 Hgb 9.7 L 8.4 L (11.8-15.2) gm/dl Hct 30.5 L 25.8 L (35.5-45.6) % Plt Count 249 271 (140-440) K/mm3 Comprehensive Metabolic Panel 09/24/16 09/25/16 Range/Units 07:51 05:00 Sodium 141 140 (137-145) mmol/L Potassium 3.6 3.7 (3.6-5.0) mmol/L Chloride 109.5 H 107.7 H (98-107) mmol/L Carbon Dioxide 15 L 19 L (22-30) mmol/L BUN 64 H 50 H (9-20) mg/dL Creatinine 1.9 H 1.5 (0.8-1.5) mg/dL Glucose 120 H 131 H (75-100) mg/dL Calcium 8.3 L 8.0 L (8.4-10.2) mg/dL
[2016-09-25] MEDS: XARELTO PO SCH (09:55)
[2016-09-25] MEDS: BICITRA PO SCH (09:55)
[2016-09-25] MEDS: QUESTRAN PO SCH (09:56)
[2016-09-25] MEDS: ZOLOFT PO SCH (09:57)
[2016-09-25] MEDS: BABY ASPIRIN PO SCH (09:58)
--- NOTE | 2016-09-25 11:12 | Progress Note ---
Subjective Principal diagnosis: darryl Interval history: Patient was evaluated today for follow-up on multiple renal related issues Marked improvement in renal function nephrostomy tube has been draining well Patient does not appear to be any acute distress Vital labs intake and output medications were reviewed Current medications: Reviewed Social history:Reviewed Family history: Reviewed HEENT: No uremic order oral mucosa moist Neck: Supple without any thyromegaly not mass or JVD Chest: Clear to auscultation occasional basilar crackles posteriorly Heart: Regular rate and rhythm S1 and S2 heard no S3-S4 Abdomen: Soft nontender no voluntary guarding rigidity or rebound Extremity: Dry skin minimal edema Psychiatry: No agitation and aggression noted Assessment and plan: Acute kidney injury with underlying chronic kidney disease , creatinine is currently 1.5 sodium is normal Doing much better from renal standpoint Does have evidence of superficial tract infection and stitch abscess, Sepsis-like picture currently resolved likely due to acute C. difficile colitis which was moderately severe currently improving Has had right nephrostomy tube with purulence, patient needs to see urology Infectious disease recommendation needs to be followed, continue with metronidazole IV 500 mg every 8 hours change nephrostomy tube Nephrostomy tube to be changed as recommended Overall patient is stable from a renal standpoint We'll continue to follow and make recommendations Objective - Vital Signs Vital signs: Vital Signs - 12hr 09/25/16 09/25/16 09/25/16 01:27 01:40 02:03 Temperature Pulse Rate 108 H Pulse Rate [ 74 71 Anterior Bilateral Throughout] Respiratory Rate Respiratory 16 15 Rate [Anterior Bilateral Throughout] Blood Pressure 152/75 O2 Sat by Pulse Oximetry 09/25/16 09/25/16 09/25/16 04:00 05:40 08:00 Temperature 98.8 F 98.2 F Pulse Rate 77 110 H 82 Pulse Rate [ Anterior Bilateral Throughout] Respiratory 22 20 Rate Respiratory Rate [Anterior Bilateral Throughout] Blood Pressure 150/86 139/92 156/85 O2 Sat by Pulse 100 100 Oximetry 09/25/16 08:25 Temperature Pulse Rate Pulse Rate [ 79 Anterior Bilateral Throughout] Respiratory Rate Respiratory 15 Rate [Anterior Bilateral Throughout] Blood Pressure O2 Sat by Pulse Oximetry - Lab 09/25/16 05:00 09/26/16 05:12 Most recent lab results Calcium 8.0 mg/dL (8.4-10.2) L 09/25/16 05:00 Magnesium 2.70 mg/dL (1.7-2.3) H 09/23/16 12:09
[2016-09-25] MEDS: DULCOLAX PR SCH (11:49)
[2016-09-25] MEDS: PROTONIX PO SCH (11:51)
[2016-09-25] MEDS: PROTONIX FEEDTUBE SCH (13:25)
--- NOTE | 2016-09-25 13:40 | Progress Note ---
Assessment and Plan Assessment: 1) Sepsis: resolved. Etiology - secondary to acute C diff colitis. 2) Acute C diff colitis- moderate: improving 3) Right obstructive uropathy: S/P nephrostomy tube / ?stents with purulence this admission, likely due to a track abscess. -UA negative on admission. -US kidney showed no kidney stones, no hydronephrosis. -Right NT cultures growing Staph aureus, GNR and SYSTEMS ARCHITECTURE ANALYST ? colonizers. -CT shows proximal right ureteral stone -S/P NT exchange on 09/24 4) Acute on CKD - resolved 5) Recent CVA with left hemiparesia and aphasia 6) A fib 7) Anemia Plan: -continue metronidazole, day 5 of 10 -Appreciate IR exchanging NT -Agree with Urology evaluation regarding management of presumed stent in place -avoid broad-spectrum antibiotics as possible -upon discharge continue metronidazole 500 mg PO q 8 hours for total 10 days from 09/21 until 09/30/[address] Maria for your consultation, will f/u with you Agnes Rodriguez MD Infectious Diseases Specialist [facility] ([facility] M [phone] O [phone] Subjective Date of service: 09/25/16 Principal diagnosis: darryl Interval history: Feels ok. No complaints. Non verbal but communicates by nodding. Per NS 2 stools last 24h. Objective - Exam Narrative Exam: General appearance: Alert in NAD, non verbal due to aphasia Eyes: anicteric sclerae, moist conjunctivae; PERRLA HENT: Atraumatic; oropharynx clear no oral thrush; normal hard and soft palate. Normal external ears. Neck: Trachea midline; supple, no thyromegaly or lymphadenopathy Lungs: CTA CV: RRR, no murmur Abdomen: Soft, non-tender; no masses or hepatosplenomegaly. PEG in place : right NT with clear urine Extremities: ++peripheral edema or extremity lymphadenopathy Skin: Normal temperature, turgor and texture; no rash, ulcers or subcutaneous nodules Psych: Appropriate affect, alert and oriented to person, place and time. Neuro: alert and oriented x 1.Right hemiparesis Lines: No CVL / PICC - Constitutional Vitals: Vital Signs Temp Pulse Resp BP Pulse Ox 98.2 F 79 15 156/85 100 09/25/16 08:00 09/25/16 08:25 08/19/17 08:25 09/25/16 08:00 09/25/16 08:00 Temperature -Last 24 Hours Temperature 98.2 F Temperature 98.8 F Temperature 97.4 F - Labs CBC & Chem 7: 09/25/16 05:00 09/25/16 05:00 Labs: Abnormal lab results 09/24/16 09/24/16 09/25/16 Range/Units 17:49 22:12 05:00 RBC (3.65-5.03) M/mm3 Hgb (11.8-15.2) gm/dl Hct (35.5-45.6) % MCV (84-94) fl MCH (28-32) pg RDW (13.2-15.2) % Chloride 107.7 H (98-107) mmol/L Carbon Dioxide 19 L (22-30) mmol/L BUN 50 H (9-20) mg/dL Glucose 131 H (75-100) mg/dL POC Glucose 152 H 130 H (70-105) Calcium 8.0 L (8.4-10.2) mg/dL 09/25/16 09/25/16 Range/Units 05:00 05:50 RBC 3.62 L (3.65-5.03) M/mm3 Hgb 8.4 L (11.8-15.2) gm/dl Hct 25.8 L (35.5-45.6) % MCV 71 L (84-94) fl MCH 23 L (28-32) pg RDW 25.9 H (13.2-15.2) % Chloride (98-107) mmol/L Carbon Dioxide (22-30) mmol/L BUN (9-20) mg/dL Glucose (75-100) mg/dL POC Glucose 139 H (70-105) Calcium (8.4-10.2) mg/dL
[2016-09-25] MEDS ORDERED: PROVENTIL IH PRN (14:17)
--- NOTE | 2016-09-25 20:35 | Progress Note ---
Assessment and Plan Assessment and plan: 61-year-old male from [facility] with a history of hypertension, A. 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 difficile colitis. 1. Sepsis due to C. difficile colitis - continue treatment with Flagyl 2. ARF superimposed on CKD - improving, nephrology following 3. Obstructive uropathy with right nephrostomy tube with pyuria - culture growing GNR, staph aureus. GNS, but WBC trending down on Flagyl alone; colonizers ?; Monitor of those spectrum antibiotics; ID following Nephrostomy tube recommended to be exchanged every 10 weeks 4. A. fib - rate controlled on CCB and anticoagulated with Xarelto 5. Diabetes - insulin/SSI 6. Recent CVA with residual left hemiparesis and aphasia, status post PEG placement - on asp/statin 7. DVT prophylaxis - on Xarelto 8. Malnutrition TF per dieticien recommendation 9. Anemia - anemia of CKD, chronic inflamation; monitor H&H History Interval history: nonverbal, but answers by nodding; doing well Hospitalist Physical - Constitutional Vitals: Temp Pulse Resp BP Pulse Ox 98.1 F 86 20 150/78 98 09/25/16 18:02 09/25/16 18:02 09/25/16 18:02 09/25/16 18:59 09/25/16 18:02 General appearance: Present: no acute distress - Neck Neck: Present: supple. Absent: enlarged thyroid, masses or JVD - Respiratory Respiratory effort: normal Respiratory: bilateral: CTA, negative: rhonchi, wheezing - Cardiovascular Rhythm: regular Heart Sounds: Present: S1 & S2. Absent: systolic murmur - Extremities Extremities: no ischemia - Abdominal General gastrointestinal: soft, non-tender, non-distended, normal bowel sounds - Neurologic Neurologic: moves all extremities Results - Labs CBC & Chem 7: 09/29/16 10:57 09/28/16 07:31 Labs: Laboratory Last Values WBC 7.8 K/mm3 (4.5-11.0) 09/25/16 05:00 RBC 3.62 M/mm3 (3.65-5.03) L 09/25/16 05:00 Hgb 8.4 gm/dl (11.8-15.2) L 09/25/16 05:00 Hct 25.8 % (35.5-45.6) L 09/25/16 05:00 MCV 71 fl (84-94) L 09/25/16 05:00 MCH 23 pg (28-32) L 09/25/16 05:00 MCHC 33 % (32-34) 09/25/16 05:00 RDW 25.9 % (13.2-15.2) H 09/25/16 05:00 Plt Count 271 K/mm3 (140-440) 09/25/16 05:00 Add Manual Diff Complete 09/22/16 03:58 Total Counted 100 09/22/16 03:58 Seg Neuts % (Manual) 76.0 % (40.0-70.0) H 09/22/16 03:58 Band Neutrophils % 2.0 % 09/22/16 03:58 Lymphocytes % (Manual) 10.0 % (13.4-35.0) L 09/22/16 03:58 Reactive Lymphs % (Man) 0 % 09/22/16 03:58 Monocytes % (Manual) 12.0 % (0.0-7.3) H 09/22/16 03:58 Eosinophils % (Manual) 0 % (0.0-4.3) 09/22/16 03:58 Basophils % (Manual) 0 % (0.0-1.8) 09/22/16 03:58 Metamyelocytes % 0 % 09/22/16 03:58 Myelocytes % 0 % 09/22/16 03:58 Promyelocytes % 0 % 09/22/16 03:58 Blast Cells % 0 % 09/22/16 03:58 Nucleated RBC % Not Reportable 09/22/16 03:58 Seg Neutrophils # Man 12.2 K/mm3 (1.8-7.7) H 09/22/16 03:58 Band Neutrophils # 0.3 K/mm3 09/22/16 03:58 Lymphocytes # (Manual) 1.6 K/mm3 (1.2-5.4) 09/22/16 03:58 Abs React Lymphs (Man) 0.0 K/mm3 09/22/16 03:58 Monocytes # (Manual) 1.9 K/mm3 (0.0-0.8) H 09/22/16 03:58 Eosinophils # (Manual) 0.0 K/mm3 (0.0-0.4) 09/22/16 03:58 Basophils # (Manual) 0.0 K/mm3 (0.0-0.1) 09/22/16 03:58 Metamyelocytes # 0.0 K/mm3 09/22/16 03:58 Myelocytes # 0.0 K/mm3 09/22/16 03:58 Promyelocytes # 0.0 K/mm3 09/22/16 03:58 Blast Cells # 0.0 K/mm3 09/22/16 03:58 WBC Morphology Not Reportable 09/22/16 03:58 Hypersegmented Neuts Not Reportable 09/22/16 03:58 Hyposegmented Neuts Not Reportable 09/22/16 03:58 Hypogranular Neuts Not Reportable 09/22/16 03:58 Smudge Cells Not Reportable 09/22/16 03:58 Toxic Granulation Not Reportable 09/22/16 03:58 Toxic Vacuolation Not Reportable 09/22/16 03:58 Dohle Bodies Not Reportable 09/22/16 03:58 Pelger-Huet Anomaly Not Reportable 09/22/16 03:58 [place] Rods Not Reportable 09/22/16 03:58 Platelet Estimate Consistent w auto 09/22/16 03:58 Clumped Platelets Not Reportable 09/22/16 03:58 Plt Clumps, EDTA Not Reportable 09/22/16 03:58 Large Platelets Not Reportable 09/22/16 03:58 Giant Platelets Not Reportable 09/22/16 03:58 Platelet Satelliting Not Reportable 09/22/16 03:58 Plt Morphology Comment Not Reportable 09/22/16 03:58 RBC Morphology Not Reportable 09/22/16 03:58 Dimorphic RBCs Not Reportable 09/22/16 03:58 Polychromasia Not Reportable 09/22/16 03:58 Hypochromasia 1+ 09/22/16 03:58 Poikilocytosis Not Reportable 09/22/16 03:58 Anisocytosis 3+ 09/22/16 03:58 Microcytosis Not Reportable 09/22/16 03:58 Macrocytosis Not Reportable 09/22/16 03:58 Spherocytes Not Reportable 09/22/16 03:58 Pappenheimer Bodies Not Reportable 09/22/16 03:58 Sickle Cells Not Reportable 09/22/16 03:58 Target Cells Not Reportable 09/22/16 03:58 Tear Drop Cells Not Reportable 09/22/16 03:58 Ovalocytes Not Reportable 09/22/16 03:58 Helmet Cells Not Reportable 09/22/16 03:58 [place] Bodies Not Reportable 09/22/16 03:58 [place] Rings Not Reportable 09/22/16 03:58 [place] Cells Not Reportable 09/22/16 03:58 Bite Cells Not Reportable 09/22/16 03:58 Crenated Cell Not Reportable 09/22/16 03:58 Elliptocytes Not Reportable 09/22/16 03:58 Acanthocytes (Spur) Not Reportable 09/22/16 03:58 Rouleaux Not Reportable 09/22/16 03:58 Hemoglobin C Crystals Not Reportable 09/22/16 03:58 Schistocytes Rare 09/22/16 03:58 Malaria parasites Not Reportable 09/22/16 03:58 Arcenio Bodies Not Reportable 09/22/16 03:58 Hem Pathologist Commnt No 09/22/16 03:58 PT 15.7 Sec. (12.2-14.9) H 09/20/16 23:49 INR 1.26 (0.87-1.13) H 09/20/16 23:49 APTT 30.1 Sec. (24.2-36.6) 09/20/16 23:49 Sodium 140 mmol/L (137-145) 09/25/16 05:00 Potassium 3.7 mmol/L (3.6-5.0) 09/25/16 05:00 Chloride 107.7 mmol/L (98-107) H 09/25/16 05:00 Carbon Dioxide 19 mmol/L (22-30) L 09/25/16 05:00 Anion Gap 17 mmol/L 09/25/16 05:00 BUN 50 mg/dL (9-20) H 09/25/16 05:00 Creatinine 1.5 mg/dL (0.8-1.5) 09/25/16 05:00 Estimated GFR 58 ml/min 09/25/16 05:00 BUN/Creatinine Ratio 33.33 % 09/25/16 05:00 Glucose 131 mg/dL (75-100) H 09/25/16 05:00 POC Glucose 139 (70-105) H 09/25/16 16:53 Lactic Acid 0.90 mmol/L (0.7-2.0) 09/21/16 01:03 Calcium 8.0 mg/dL (8.4-10.2) L 09/25/16 05:00 Magnesium 2.70 mg/dL (1.7-2.3) H 09/23/16 12:09 Total Bilirubin 0.20 mg/dL (0.1-1.2) 09/20/16 23:42 AST 13 units/L (5-40) 09/20/16 23:42 ALT 13 units/L (7-56) 09/20/16 23:42 Alkaline Phosphatase 73 units/L (35-129) 09/20/16 23:42 Total Creatine Kinase 53 units/L (55-170) L 09/21/16 11:23 CK-MB (CK-2) 1.7 ng/mL (0.0-4.0) 09/21/16 11:23 CK-MB (CK-2) Rel Index 3.2 (0-4) 09/21/16 11:23 Troponin T 0.033 ng/mL (0.00-0.029) H 09/21/16 11:23 NT-Pro-B Natriuret Pep 2195 pg/mL (0-900) H 09/20/16 23:42 Total Protein 7.4 g/dL (6.3-8.2) 09/20/16 23:42 Albumin 2.7 g/dL (3.9-5) L 09/20/16 23:42 Albumin/Globulin Ratio 0.6 % 09/20/16 23:42 Triglycerides 164 mg/dL (2-149) H 09/20/16 23:42 Cholesterol 95 mg/dL (50-199) 09/20/16 23:42 LDL Cholesterol Direct 43 mg/dL (50-130) L 09/20/16 23:42 HDL Cholesterol 20 mg/dL (40-59) L 09/20/16 23:42 Cholesterol/HDL Ratio 4.75 % 09/20/16 23:42 Urine Color Yellow (Yellow) 09/21/16 17:12 Urine Turbidity Clear (Clear) 09/21/16 17:12 Urine pH 6.0 (5.0-7.0) 09/21/16 17:12 Ur Specific [place] 1.016 (1.003-1.030) 09/21/16 17:12 Urine Protein 30 mg/dl mg/dL (Negative) 09/21/16 17:12 Urine Glucose (UA) Neg mg/dL (Negative) 09/21/16 17:12 Urine Ketones Neg mg/dL (Negative) 09/21/16 17:12 Urine Blood Neg (Negative) 09/21/16 17:12 Urine Nitrite Neg (Negative) 09/21/16 17:12 Urine Bilirubin Neg (Negative) 09/21/16 17:12 Urine Urobilinogen < 2.0 mg/dL (<2.0) 09/21/16 17:12 Ur Leukocyte Esterase Tr (Negative) 09/21/16 17:12 Urine WBC (Auto) 6.0 /HPF (0.0-6.0) 09/21/16 17:12 Urine RBC (Auto) 1.0 /HPF (0.0-6.0) 09/21/16 17:12 U Epithel Cells (Auto) < 1.0 /HPF (0-13.0) 09/21/16 17:12 Urine Bacteria (Auto) 2+ /HPF (Negative) 09/21/16 17:12 Urine Mucus Few /HPF 09/21/16 17:12 Urine Eosinophils None seen (None Seen) 09/21/16 17:12
[2016-09-26] MEDS: CARDIZEM PO SCH ×5 (00:12→23:54)
[2016-09-26] MEDS: QUESTRAN PO SCH ×3 (00:13→23:55)
[2016-09-26] MEDS: ULTRAM PO PRN (00:27)
[2016-09-26] MEDS: KCL IV SCH ×2 (00:28→10:59)
[2016-09-26] MEDS: D5W IV SCH ×2 (00:28→10:59)
[2016-09-26] MEDS: SODIUM BICARBONATE IV SCH ×2 (00:28→10:59)
[2016-09-26] MEDS: FLAGYL FEEDTUBE SCH ×3 (02:40→19:07)
[2016-09-26 06:25] LABS: Anion Gap 17 mmol/L; Blood Urea Nitrogen 39 mg/dL (9-20); Calcium 8.2 mg/dL (8.4-10.2); Carbon Dioxide 24 mmol/L (22-30); Glucose 115 mg/dL (75-100); Potassium 4.3 mmol/L (3.6-5.0); Sodium 139 mmol/L (137-145)
[2016-09-26] MEDS: NOVOLOG SUB-Q SCH ×5 (08:13→23:09)
--- NOTE | 2016-09-26 08:34 | Progress Note ---
Assessment and Plan Sepsis C.diff colitis Metabolic acidosis Chronic atrial fibrillation on low dose xarelto for oral anticoagulation coreg and amiodarone discontinued d/t slow ventricular response. diltiazem dose reduced Hypertension - uncontrolled Prior CVA DM Hx of DCMP now resolved, EF 60-65% on echo this admission Acute on chronic renal disease Hx of obstructive uropathy s/p nephrostomy tube Recommendations: Continue diltiazem for rate control of atrial fibrillation. The patient is on low dose Xarelto therapy for anticoagulation. H/H noted trending down. Continue to monitor Add hydralazine for blood pressure reduction Otherwise, conservative cardiac management. Subjective Date of service: 09/26/16 Principal diagnosis: darryl Interval history: No interval changes BP uncontrolled Objective Vital Signs Temp Pulse Pulse Resp Resp BP Pulse Ox 09/26/16 06:46 96 H 180/90 09/26/16 01:00 99.4 F 88 18 177/81 100 09/26/16 00:27 20 09/26/16 00:12 88 177/81 09/25/16 22:00 96 09/25/16 18:59 150/78 09/25/16 18:02 98.1 F 86 20 150/78 98 09/25/16 14:44 90 163/82 09/25/16 14:22 92 H 17 09/25/16 14:12 84 16 - Physical Examination General: No Apparent Distress Neck: Positive: neck supple Cardiac: Positive: irregularly irregular Lungs: Positive: Decreased Breath Sounds - Labs and Meds Comprehensive Metabolic Panel 09/26/16 Range/Units 05:12 Sodium 139 (137-145) mmol/L Potassium 4.3 (3.6-5.0) mmol/L Chloride 102.0 (98-107) mmol/L Carbon Dioxide 24 (22-30) mmol/L BUN 39 H (9-20) mg/dL Creatinine 1.3 (0.8-1.5) mg/dL Glucose 115 H (75-100) mg/dL Calcium 8.2 L (8.4-10.2) mg/dL
[2016-09-26] MEDS: BICITRA PO SCH (10:54)
[2016-09-26] MEDS: PROTONIX FEEDTUBE SCH (10:55)
[2016-09-26] MEDS: ZOLOFT PO SCH (10:55)
[2016-09-26] MEDS: XARELTO PO SCH (10:55)
[2016-09-26] MEDS: BABY ASPIRIN PO SCH (10:56)
--- NOTE | 2016-09-26 10:57 | Progress Note ---
Subjective Principal diagnosis: darryl Interval history: Patient was evaluated today for follow-up on multiple renal related issues nephrostomy has been draining well Patient denies any shortness of breath or chest pain Discussed with patient's nurse today at the bedside Vital labs intake and output medications were reviewed Current medications: Reviewed Social history:Reviewed Family history: Reviewed HEENT: No uremic order oral mucosa moist Neck: Supple without any thyromegaly not mass or JVD Chest: Clear to auscultation occasional basilar crackles posteriorly Heart: Regular rate and rhythm S1 and S2 heard no S3-S4 Abdomen: Soft nontender no voluntary guarding rigidity or rebound Extremity: Dry skin minimal edema Psychiatry: No agitation and aggression noted Assessment and plan: Acute kidney injury with underlying chronic kidney disease , creatinine is currently 1.5 sodium is normal Doing much better from renal standpoint,discussed with him about renal issues Please follow infectious disease recommendations Patient will need to be seen and followed by urology please consider that Given that renal function has normalized I would like to sign off please call if needed Objective - Vital Signs Vital signs: Vital Signs - 12hr 09/26/16 09/26/16 09/26/16 00:12 00:27 01:00 Temperature 99.4 F Pulse Rate 88 88 Respiratory 20 18 Rate Blood Pressure 177/81 177/81 O2 Sat by Pulse 100 Oximetry 09/26/16 09/26/16 06:46 08:10 Temperature 98.7 F Pulse Rate 96 H 76 Respiratory 24 Rate Blood Pressure 180/90 148/82 O2 Sat by Pulse 99 Oximetry - Lab 09/25/16 05:00 09/26/16 05:12 Most recent lab results Calcium 8.2 mg/dL (8.4-10.2) L 09/26/16 05:12 Magnesium 2.70 mg/dL (1.7-2.3) H 09/23/16 12:09
[2016-09-26] MEDS: DULCOLAX PR SCH (11:32)
[2016-09-26] MEDS: APRESOLINE PO SCH ×2 (13:26→23:55)
--- NOTE | 2016-09-26 13:29 | Progress Note ---
Assessment and Plan Assessment: 1) Sepsis: resolved. Etiology - secondary to acute C diff colitis. 2) Acute C diff colitis- moderate: improving 3) Right obstructive uropathy: S/P nephrostomy tube / stents with purulence this admission, likely due to a track abscess. -UA negative on admission. -US kidney showed no kidney stones, no hydronephrosis. -Right NT cultures growing Staph aureus, GNR and [employer] ? colonizers. -CT shows proximal right ureteral stone -S/P NT exchange on 09/24 4) Acute on CKD - resolved 5) Recent CVA with left hemiparesia and aphasia 6) A fib 7) Anemia Plan: -continue metronidazole, day 6 of 10 -Urology evaluation regarding management of stone / stent in place -avoid broad-spectrum antibiotics as possible -upon discharge continue metronidazole 500 mg PO q 8 hours for total 10 days from 09/21 until 09/30/[address] Maria for your consultation, will f/u with you Agnes Rodriguez MD Infectious Diseases Specialist [facility] [phone] Subjective Date of service: 09/26/16 Principal diagnosis: darryl Interval history: No complaints. Non verbal but communicates by nodding. No diarrhea reported. Microbiology: Blood cultures: 09/21 ngdt Stool C diff 09/21 positive Current Antibiotics: 09/21 Metronidazole Previous antibiotics: 09/21 Vancomycin IV x 1 Objective - Exam Narrative Exam: General appearance: Alert in NAD, non verbal due to aphasia Eyes: anicteric sclerae, moist conjunctivae; PERRLA HENT: Atraumatic; oropharynx clear no oral thrush; normal hard and soft palate. Normal external ears. Neck: Trachea midline; supple, no thyromegaly or lymphadenopathy Lungs: CTA CV: RRR, no murmur Abdomen: Soft, non-tender; no masses or hepatosplenomegaly. PEG in place : right NT with clear urine Extremities: ++peripheral edema or extremity lymphadenopathy Skin: Normal temperature, turgor and texture; no rash, ulcers or subcutaneous nodules Psych: Appropriate affect, alert and oriented to person, place and time. Neuro: alert and oriented x 1.Right hemiparesis Lines: No CVL / PICC - Constitutional Vitals: Vital Signs Temp Pulse Resp BP Pulse Ox 98.7 F 76 24 176/96 99 09/26/16 08:10 09/26/16 08:10 09/26/16 08:10 09/26/16 13:26 09/26/16 08:10 Temperature -Last 24 Hours Temperature 98.7 F Temperature 99.4 F Temperature 98.1 F - Labs CBC & Chem 7: 09/25/16 05:00 09/26/16 05:12 Labs: Abnormal lab results 09/25/16 09/25/16 09/25/16 Range/Units 11:26 16:53 23:53 BUN (9-20) mg/dL Glucose (75-100) mg/dL POC Glucose 163 H 139 H 115 H (70-105) Calcium (8.4-10.2) mg/dL 09/26/16 Range/Units 05:12 BUN 39 H (9-20) mg/dL Glucose 115 H (75-100) mg/dL POC Glucose (70-105) Calcium 8.2 L (8.4-10.2) mg/dL
--- NOTE | 2016-09-26 21:34 | Progress Note ---
Assessment and Plan Assessment and plan: 61-year-old male from [facility] with a history of hypertension, A. 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 difficile colitis. 1. Sepsis due to C. difficile colitis - continue treatment with Flagyl 2. ARF superimposed on CKD - improving, nephrology following 3. Obstructive uropathy with right nephrostomy tube with pyuria - culture growing GNR, staph aureus. GNS, but WBC trending down on Flagyl alone; colonizers ?; Monitor off broad spectrum antibiotics; ID following Nephrostomy tube recommended to be exchanged every 10 weeks 4. A. fib - rate controlled on CCB and anticoagulated with Xarelto 5. Diabetes - insulin/SSI 6. Recent CVA with residual left hemiparesis and aphasia, status post PEG placement - on asp/statin 7. Malnutrition TF per dieticien recommendation 8. Anemia - anemia of CKD, chronic inflamation; monitor H&H 9. DVT prophylaxis - on Xarelto History Interval history: nonverbal, but answers by nodding; doing well Hospitalist Physical - Constitutional Vitals: Temp Pulse Resp BP Pulse Ox 99.3 F 86 20 179/97 99 09/26/16 16:20 09/26/16 19:15 09/26/16 16:20 09/26/16 19:15 09/26/16 16:20 General appearance: Present: no acute distress - EENT Eyes: Present: PERRL, EOM intact - Neck Neck: Present: supple, normal ROM. Absent: masses or JVD - Respiratory Respiratory effort: normal Respiratory: bilateral: CTA, negative: rales, rhonchi - Cardiovascular Rhythm: irregularly irregular Heart Sounds: Present: S1 & S2. Absent: systolic murmur - Extremities Extremities: no ischemia - Abdominal General gastrointestinal: soft, non-tender, non-distended, normal bowel sounds, other (PEG) - Neurologic Neurologic: other (L hemiparesis, aphasia) Results - Labs CBC & Chem 7: 09/25/16 05:00 09/26/16 05:12 Labs: Laboratory Last Values WBC 7.8 K/mm3 (4.5-11.0) 09/25/16 05:00 RBC 3.62 M/mm3 (3.65-5.03) L 09/25/16 05:00 Hgb 8.4 gm/dl (11.8-15.2) L 09/25/16 05:00 Hct 25.8 % (35.5-45.6) L 09/25/16 05:00 MCV 71 fl (84-94) L 09/25/16 05:00 MCH 23 pg (28-32) L 09/25/16 05:00 MCHC 33 % (32-34) 09/25/16 05:00 RDW 25.9 % (13.2-15.2) H 09/25/16 05:00 Plt Count 271 K/mm3 (140-440) 09/25/16 05:00 Add Manual Diff Complete 09/22/16 03:58 Total Counted 100 09/22/16 03:58 Seg Neuts % (Manual) 76.0 % (40.0-70.0) H 09/22/16 03:58 Band Neutrophils % 2.0 % 09/22/16 03:58 Lymphocytes % (Manual) 10.0 % (13.4-35.0) L 09/22/16 03:58 Reactive Lymphs % (Man) 0 % 09/22/16 03:58 Monocytes % (Manual) 12.0 % (0.0-7.3) H 09/22/16 03:58 Eosinophils % (Manual) 0 % (0.0-4.3) 09/22/16 03:58 Basophils % (Manual) 0 % (0.0-1.8) 09/22/16 03:58 Metamyelocytes % 0 % 09/22/16 03:58 Myelocytes % 0 % 09/22/16 03:58 Promyelocytes % 0 % 09/22/16 03:58 Blast Cells % 0 % 09/22/16 03:58 Nucleated RBC % Not Reportable 09/22/16 03:58 Seg Neutrophils # Man 12.2 K/mm3 (1.8-7.7) H 09/22/16 03:58 Band Neutrophils # 0.3 K/mm3 09/22/16 03:58 Lymphocytes # (Manual) 1.6 K/mm3 (1.2-5.4) 09/22/16 03:58 Abs React Lymphs (Man) 0.0 K/mm3 09/22/16 03:58 Monocytes # (Manual) 1.9 K/mm3 (0.0-0.8) H 09/22/16 03:58 Eosinophils # (Manual) 0.0 K/mm3 (0.0-0.4) 09/22/16 03:58 Basophils # (Manual) 0.0 K/mm3 (0.0-0.1) 09/22/16 03:58 Metamyelocytes # 0.0 K/mm3 09/22/16 03:58 Myelocytes # 0.0 K/mm3 09/22/16 03:58 Promyelocytes # 0.0 K/mm3 09/22/16 03:58 Blast Cells # 0.0 K/mm3 09/22/16 03:58 WBC Morphology Not Reportable 09/22/16 03:58 Hypersegmented Neuts Not Reportable 09/22/16 03:58 Hyposegmented Neuts Not Reportable 09/22/16 03:58 Hypogranular Neuts Not Reportable 09/22/16 03:58 Smudge Cells Not Reportable 09/22/16 03:58 Toxic Granulation Not Reportable 09/22/16 03:58 Toxic Vacuolation Not Reportable 09/22/16 03:58 Dohle Bodies Not Reportable 09/22/16 03:58 Pelger-Huet Anomaly Not Reportable 09/22/16 03:58 [place] Rods Not Reportable 09/22/16 03:58 Platelet Estimate Consistent w auto 09/22/16 03:58 Clumped Platelets Not Reportable 09/22/16 03:58 Plt Clumps, EDTA Not Reportable 09/22/16 03:58 Large Platelets Not Reportable 09/22/16 03:58 Giant Platelets Not Reportable 09/22/16 03:58 Platelet Satelliting Not Reportable 09/22/16 03:58 Plt Morphology Comment Not Reportable 09/22/16 03:58 RBC Morphology Not Reportable 09/22/16 03:58 Dimorphic RBCs Not Reportable 09/22/16 03:58 Polychromasia Not Reportable 09/22/16 03:58 Hypochromasia 1+ 09/22/16 03:58 Poikilocytosis Not Reportable 09/22/16 03:58 Anisocytosis 3+ 09/22/16 03:58 Microcytosis Not Reportable 09/22/16 03:58 Macrocytosis Not Reportable 09/22/16 03:58 Spherocytes Not Reportable 09/22/16 03:58 Pappenheimer Bodies Not Reportable 09/22/16 03:58 Sickle Cells Not Reportable 09/22/16 03:58 Target Cells Not Reportable 09/22/16 03:58 Tear Drop Cells Not Reportable 09/22/16 03:58 Ovalocytes Not Reportable 09/22/16 03:58 Helmet Cells Not Reportable 09/22/16 03:58 [place] Bodies Not Reportable 09/22/16 03:58 [place] Rings Not Reportable 09/22/16 03:58 [place] Cells Not Reportable 09/22/16 03:58 Bite Cells Not Reportable 09/22/16 03:58 Crenated Cell Not Reportable 09/22/16 03:58 Elliptocytes Not Reportable 09/22/16 03:58 Acanthocytes (Spur) Not Reportable 09/22/16 03:58 Rouleaux Not Reportable 09/22/16 03:58 Hemoglobin C Crystals Not Reportable 09/22/16 03:58 Schistocytes Rare 09/22/16 03:58 Malaria parasites Not Reportable 09/22/16 03:58 [place]enio Bodies Not Reportable 09/22/16 03:58 Hem Pathologist Commnt No 09/22/16 03:58 PT 15.7 Sec. (12.2-14.9) H 09/20/16 23:49 INR 1.26 (0.87-1.13) H 09/20/16 23:49 APTT 30.1 Sec. (24.2-36.6) 09/20/16 23:49 Sodium 139 mmol/L (137-145) 09/26/16 05:12 Potassium 4.3 mmol/L (3.6-5.0) 09/26/16 05:12 Chloride 102.0 mmol/L (98-107) 09/26/16 05:12 Carbon Dioxide 24 mmol/L (22-30) 09/26/16 05:12 Anion Gap 17 mmol/L 09/26/16 05:12 BUN 39 mg/dL (9-20) H 09/26/16 05:12 Creatinine 1.3 mg/dL (0.8-1.5) 09/26/16 05:12 Estimated GFR > 60 ml/min 09/26/16 05:12 BUN/Creatinine Ratio 30.00 % 09/26/16 05:12 Glucose 115 mg/dL (75-100) H 09/26/16 05:12 POC Glucose 115 (70-105) H 09/26/16 21:17 Lactic Acid 0.90 mmol/L (0.7-2.0) 09/21/16 01:03 Calcium 8.2 mg/dL (8.4-10.2) L 09/26/16 05:12 Magnesium 2.70 mg/dL (1.7-2.3) H 09/23/16 12:09 Total Bilirubin 0.20 mg/dL (0.1-1.2) 09/20/16 23:42 AST 13 units/L (5-40) 09/20/16 23:42 ALT 13 units/L (7-56) 09/20/16 23:42 Alkaline Phosphatase 73 units/L (35-129) 09/20/16 23:42 Total Creatine Kinase 53 units/L (55-170) L 09/21/16 11:23 CK-MB (CK-2) 1.7 ng/mL (0.0-4.0) 09/21/16 11:23 CK-MB (CK-2) Rel Index 3.2 (0-4) 09/21/16 11:23 Troponin T 0.033 ng/mL (0.00-0.029) H 09/21/16 11:23 NT-Pro-B Natriuret Pep 2195 pg/mL (0-900) H 09/20/16 23:42 Total Protein 7.4 g/dL (6.3-8.2) 09/20/16 23:42 Albumin 2.7 g/dL (3.9-5) L 09/20/16 23:42 Albumin/Globulin Ratio 0.6 % 09/20/16 23:42 Triglycerides 164 mg/dL (2-149) H 09/20/16 23:42 Cholesterol 95 mg/dL (50-199) 09/20/16 23:42 LDL Cholesterol Direct 43 mg/dL (50-130) L 09/20/16 23:42 HDL Cholesterol 20 mg/dL (40-59) L 09/20/16 23:42 Cholesterol/HDL Ratio 4.75 % 09/20/16 23:42 Urine Color Yellow (Yellow) 09/21/16 17:12 Urine Turbidity Clear (Clear) 09/21/16 17:12 Urine pH 6.0 (5.0-7.0) 09/21/16 17:12 Ur Specific [place] 1.016 (1.003-1.030) 09/21/16 17:12 Urine Protein 30 mg/dl mg/dL (Negative) 09/21/16 17:12 Urine Glucose (UA) Neg mg/dL (Negative) 09/21/16 17:12 Urine Ketones Neg mg/dL (Negative) 09/21/16 17:12 Urine Blood Neg (Negative) 09/21/16 17:12 Urine Nitrite Neg (Negative) 09/21/16 17:12 Urine Bilirubin Neg (Negative) 09/21/16 17:12 Urine Urobilinogen < 2.0 mg/dL (<2.0) 09/21/16 17:12 Ur Leukocyte Esterase Tr (Negative) 09/21/16 17:12 Urine WBC (Auto) 6.0 /HPF (0.0-6.0) 09/21/16 17:12 Urine RBC (Auto) 1.0 /HPF (0.0-6.0) 09/21/16 17:12 U Epithel Cells (Auto) < 1.0 /HPF (0-13.0) 09/21/16 17:12 Urine Bacteria (Auto) 2+ /HPF (Negative) 09/21/16 17:12 Urine Mucus Few /HPF 09/21/16 17:12 Urine Eosinophils None seen (None Seen) 09/21/16 17:12
[2016-09-27] MEDS: D5W IV SCH ×2 (00:26→22:34)
[2016-09-27] MEDS: SODIUM BICARBONATE IV SCH ×2 (00:26→22:34)
[2016-09-27] MEDS: KCL IV SCH ×2 (00:26→22:34)
[2016-09-27] MEDS: FLAGYL FEEDTUBE SCH ×3 (03:00→17:17)
[2016-09-27] MEDS: CARDIZEM PO SCH ×3 (06:00→17:17)
[2016-09-27] MEDS: APRESOLINE PO SCH ×3 (06:01→22:39)
[2016-09-27 06:21] LABS: Hematocrit 26.3 % (35.5-45.6); Hemoglobin 8.6 gm/dl (11.8-15.2); Mean Corpuscular HGB Conc 33 % (32-34); Mean Corpuscular Volume 72 fl (84-94); Platelet Count 234 K/mm3 (140-440); Red Blood Count 3.67 M/mm3 (3.65-5.03)
[2016-09-27 06:26] LABS: Mean Corpuscular Hemoglobin 24 pg (28-32)
[2016-09-27 06:37] LABS: Anion Gap 14 mmol/L; BUN/Creatinine Ratio 26.92; Blood Urea Nitrogen 35 mg/dL (9-20); Calcium 7.7 mg/dL (8.4-10.2); Carbon Dioxide 28 mmol/L (22-30); Chloride 99.2 mmol/L (98-107); Glucose 106 mg/dL (75-100); Potassium 4.5 mmol/L (3.6-5.0); Sodium 137 mmol/L (137-145)
[2016-09-27 07:06] LABS: Anisocytosis 2+; Basophils % (Manual) 0 % (0.0-1.8); Blastocytes % (Manual) 0 %; Diff Status Complete; Hypochromasia 1+; Platelet Estimate Consistent w Auto
[2016-09-27] MEDS: NOVOLOG SUB-Q SCH ×4 (08:00→22:50)
--- NOTE | 2016-09-27 09:07 | Progress Note ---
Assessment and Plan Assessment: 1) Sepsis: resolved. Etiology - secondary to acute C diff colitis. 2) Acute C diff colitis- moderate: improving 3) Right obstructive uropathy: S/P nephrostomy tube / stents with purulence this admission, likely due to a track abscess. -UA negative on admission. -US kidney showed no kidney stones, no hydronephrosis. -Right NT cultures growing MRSA, GNR and POTTERY STRIPER ? colonizers. -CT shows proximal right ureteral stone -S/P NT exchange on 09/24 4) Acute on CKD - resolved 5) Recent CVA with left hemiparesia and aphasia 6) A fib 7) Anemia Plan: -continue metronidazole, day 7 of 10 -Urology evaluation as outpatient -NT exchange every 10 weeks per [facility] records -avoid broad-spectrum antibiotics as possible -upon discharge continue metronidazole 500 mg PO q 8 hours for total 10 days from 09/21 until 09/30/[address] Keating for your consultation, will f/u with you Agnes Rodriguez MD Infectious Diseases Specialist [facility] M [phone] O [phone] Subjective Date of service: 09/27/16 Principal diagnosis: darryl Interval history: No complaints. Non verbal but communicates by nodding. No diarrhea. Microbiology: Blood cultures: 09/21 ngdt Stool C diff 09/21 positive Nephrostomy tube culture + MRSA, POTTERY STRIPER and GNR Current Antibiotics: 09/21 Metronidazole Previous antibiotics: 09/21 Vancomycin IV x 1 Objective - Exam Narrative Exam: General appearance: Alert in NAD, non verbal due to aphasia Eyes: anicteric sclerae, moist conjunctivae; PERRLA HENT: Atraumatic; oropharynx clear no oral thrush; normal hard and soft palate. Normal external ears. Neck: Trachea midline; supple, no thyromegaly or lymphadenopathy Lungs: CTA CV: RRR, no murmur Abdomen: Soft, non-tender; no masses or hepatosplenomegaly. PEG in place : right NT with clear urine Extremities: ++peripheral edema or extremity lymphadenopathy Skin: Normal temperature, turgor and texture; no rash, ulcers or subcutaneous nodules Psych: Appropriate affect, alert and oriented to person, place and time. Neuro: alert and oriented x 1.Right hemiparesis Lines: No CVL / PICC - Constitutional Vitals: Vital Signs Temp Pulse Resp BP Pulse Ox 99.9 F H 94 H 16 153/77 99 09/26/16 23:21 09/27/16 06:01 09/26/16 23:21 09/27/16 06:01 09/26/16 16:20 Temperature -Last 24 Hours Temperature 99.9 F Temperature 99.3 F Temperature 98.7 F - Labs CBC & Chem 7: 09/27/16 05:27 09/27/16 05:27 Labs: Abnormal lab results 09/26/16 09/26/16 09/27/16 Range/Units 16:52 21:17 05:27 Hgb (11.8-15.2) gm/dl Hct (35.5-45.6) % MCV (84-94) fl MCH (28-32) pg RDW (13.2-15.2) % Monocytes % (Manual) (0.0-7.3) % Monocytes # (Manual) (0.0-0.8) K/mm3 BUN 35 H (9-20) mg/dL Glucose 106 H (75-100) mg/dL POC Glucose 119 H 115 H (70-105) Calcium 7.7 L (8.4-10.2) mg/dL 09/27/16 09/27/16 Range/Units 05:27 06:26 Hgb 8.6 L (11.8-15.2) gm/dl Hct 26.3 L (35.5-45.6) % MCV 72 L (84-94) fl MCH 24 L (28-32) pg RDW 26.0 H (13.2-15.2) % Monocytes % (Manual) 15.0 H (0.0-7.3) % Monocytes # (Manual) 1.2 H (0.0-0.8) K/mm3 BUN (9-20) mg/dL Glucose (75-100) mg/dL POC Glucose 115 H (70-105) Calcium (8.4-10.2) mg/dL
--- NOTE | 2016-09-27 09:41 | Progress Note ---
Assessment and Plan Assessment and plan: 61-year-old male from [facility] with a history of hypertension, A. 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 difficile colitis. Sepsis due to C. difficile colitis - continue treatment with Flagyl. IOD Physician following. I discussed case with her Acute on CKD. Due to ATN. Now resolved. Creatine 1.3 today. Obstructive uropathy with right nephrostomy tube with pyuria - culture growing GNR, staph aureus. GNS, but WBC trending down on Flagyl alone; Monitor off broad spectrum antibiotics; ID following Nephrostomy tube recommended to be exchanged every 10 weeks. Interventional radiologist recommend consulting Urologist. Will consult Dr. Hendrickson. He has seen patient before. Bloody stools. Will consult GI. Obtain H/H Q 8hrs A. fib - rate controlled onCardizem. Xarelto for anticoagulation. Diabetes mellitus type 2- insulin/SSI Recent CVA with residual left hemiparesis and aphasia, status post PEG placement . Malnutrition Anemia - anemia of CKD, chronic inflamation; monitor H&H DVT prophylaxis - on Xarelto History Interval history: Nurse report bloody stools Hospitalist Physical - Physical exam Narrative exam: Gen appearance: Not in acute distress HEENT: normocephalic, atraumatic Neck: supple, no JVD, IRAM Lungs: Clear to auscultation bilaterally, no crackles or wheezes Heart :S1 and S2 regular, no murmurs, rubs or gallop Abdomen: Soft, Non tender, non distended, bowel sounds present, nephrostomy tube right Extremities :no edema, no clubbing or cyanosis Neuro: Awake,alert,non verbal - Constitutional Vitals: Temp Pulse Resp BP Pulse Ox 99.9 F H 94 H 16 153/77 99 09/26/16 23:21 09/27/16 06:01 09/26/16 23:21 09/27/16 06:01 09/26/16 16:20 General appearance: Present: no acute distress Results - Labs CBC & Chem 7: 09/28/16 07:31 09/28/16 07:31 Labs: Laboratory Last Values WBC 8.0 K/mm3 (4.5-11.0) 09/27/16 05:27 RBC 3.67 M/mm3 (3.65-5.03) 09/27/16 05:27 Hgb 8.6 gm/dl (11.8-15.2) L 09/27/16 05:27 Hct 26.3 % (35.5-45.6) L 09/27/16 05:27 MCV 72 fl (84-94) L 09/27/16 05:27 MCH 24 pg (28-32) L 09/27/16 05:27 MCHC 33 % (32-34) 09/27/16 05:27 RDW 26.0 % (13.2-15.2) H 09/27/16 05:27 Plt Count 234 K/mm3 (140-440) 09/27/16 05:27 Add Manual Diff Complete 09/27/16 05:27 Total Counted 100 09/27/16 05:27 Seg Neuts % (Manual) 62.0 % (40.0-70.0) 09/27/16 05:27 Band Neutrophils % 0 % 09/27/16 05:27 Lymphocytes % (Manual) 20.0 % (13.4-35.0) 09/27/16 05:27 Reactive Lymphs % (Man) 0 % 09/27/16 05:27 Monocytes % (Manual) 15.0 % (0.0-7.3) H 09/27/16 05:27 Eosinophils % (Manual) 3.0 % (0.0-4.3) 09/27/16 05:27 Basophils % (Manual) 0 % (0.0-1.8) 09/27/16 05:27 Metamyelocytes % 0 % 09/27/16 05:27 Myelocytes % 0 % 09/27/16 05:27 Promyelocytes % 0 % 09/27/16 05:27 Blast Cells % 0 % 09/27/16 05:27 Nucleated RBC % Not Reportable 09/27/16 05:27 Seg Neutrophils # Man 5.0 K/mm3 (1.8-7.7) 09/27/16 05:27 Band Neutrophils # 0.0 K/mm3 09/27/16 05:27 Lymphocytes # (Manual) 1.6 K/mm3 (1.2-5.4) 09/27/16 05:27 Abs React Lymphs (Man) 0.0 K/mm3 09/27/16 05:27 Monocytes # (Manual) 1.2 K/mm3 (0.0-0.8) H 09/27/16 05:27 Eosinophils # (Manual) 0.2 K/mm3 (0.0-0.4) 09/27/16 05:27 Basophils # (Manual) 0.0 K/mm3 (0.0-0.1) 09/27/16 05:27 Metamyelocytes # 0.0 K/mm3 09/27/16 05:27 Myelocytes # 0.0 K/mm3 09/27/16 05:27 Promyelocytes # 0.0 K/mm3 09/27/16 05:27 Blast Cells # 0.0 K/mm3 09/27/16 05:27 WBC Morphology Not Reportable 09/27/16 05:27 Hypersegmented Neuts Not Reportable 09/27/16 05:27 Hyposegmented Neuts Not Reportable 09/27/16 05:27 Hypogranular Neuts Not Reportable 09/27/16 05:27 Smudge Cells Not Reportable 09/27/16 05:27 Toxic Granulation Not Reportable 09/27/16 05:27 Toxic Vacuolation Not Reportable 09/27/16 05:27 Dohle Bodies Not Reportable 09/27/16 05:27 Pelger-Huet Anomaly Not Reportable 09/27/16 05:27 [place] Rods Not Reportable 09/27/16 05:27 Platelet Estimate Consistent w auto 09/27/16 05:27 Clumped Platelets Not Reportable 09/27/16 05:27 Plt Clumps, EDTA Not Reportable 09/27/16 05:27 Large Platelets Not Reportable 09/27/16 05:27 Giant Platelets Not Reportable 09/27/16 05:27 Platelet Satelliting Not Reportable 09/27/16 05:27 Plt Morphology Comment Not Reportable 09/27/16 05:27 RBC Morphology Not Reportable 09/27/16 05:27 Dimorphic RBCs Not Reportable 09/27/16 05:27 Polychromasia Not Reportable 09/27/16 05:27 Hypochromasia 1+ 09/27/16 05:27 Poikilocytosis Not Reportable 09/27/16 05:27 Anisocytosis 2+ 09/27/16 05:27 Microcytosis Not Reportable 09/27/16 05:27 Macrocytosis Not Reportable 09/27/16 05:27 Spherocytes Not Reportable 09/27/16 05:27 Pappenheimer Bodies Not Reportable 09/27/16 05:27 Sickle Cells Not Reportable 09/27/16 05:27 Target Cells Not Reportable 09/27/16 05:27 Tear Drop Cells Not Reportable 09/27/16 05:27 Ovalocytes Not Reportable 09/27/16 05:27 Helmet Cells Not Reportable 09/27/16 05:27 [place]ar[place] Bodies Not Reportable 09/27/16 05:27 [place] Rings Not Reportable 09/27/16 05:27 Ayden Cells Not Reportable 09/27/16 05:27 Bite Cells Not Reportable 09/27/16 05:27 Crenated Cell Not Reportable 09/27/16 05:27 Elliptocytes Not Reportable 09/27/16 05:27 Acanthocytes (Spur) Not Reportable 09/27/16 05:27 Rouleaux Not Reportable 09/27/16 05:27 Hemoglobin C Crystals Not Reportable 09/27/16 05:27 Schistocytes Not Reportable 09/27/16 05:27 Malaria parasites Not Reportable 09/27/16 05:27 Arcenio Bodies Not Reportable 09/27/16 05:27 Hem Pathologist Commnt No 09/27/16 05:27 PT 15.7 Sec. (12.2-14.9) H 09/20/16 23:49 INR 1.26 (0.87-1.13) H 09/20/16 23:49 APTT 30.1 Sec. (24.2-36.6) 09/20/16 23:49 Sodium 137 mmol/L (137-145) 09/27/16 05:27 Potassium 4.5 mmol/L (3.6-5.0) 09/27/16 05:27 Chloride 99.2 mmol/L (98-107) 09/27/16 05:27 Carbon Dioxide 28 mmol/L (22-30) 09/27/16 05:27 Anion Gap 14 mmol/L 09/27/16 05:27 BUN 35 mg/dL (9-20) H 09/27/16 05:27 Creatinine 1.3 mg/dL (0.8-1.5) 09/27/16 05:27 Estimated GFR > 60 ml/min 09/27/16 05:27 BUN/Creatinine Ratio 26.92 % 09/27/16 05:27 Glucose 106 mg/dL (75-100) H 09/27/16 05:27 POC Glucose 115 (70-105) H 09/27/16 06:26 Lactic Acid 0.90 mmol/L (0.7-2.0) 09/21/16 01:03 Calcium 7.7 mg/dL (8.4-10.2) L 09/27/16 05:27 Magnesium 2.70 mg/dL (1.7-2.3) H 09/23/16 12:09 Total Bilirubin 0.20 mg/dL (0.1-1.2) 09/20/16 23:42 AST 13 units/L (5-40) 09/20/16 23:42 ALT 13 units/L (7-56) 09/20/16 23:42 Alkaline Phosphatase 73 units/L (35-129) 09/20/16 23:42 Total Creatine Kinase 53 units/L (55-170) L 09/21/16 11:23 CK-MB (CK-2) 1.7 ng/mL (0.0-4.0) 09/21/16 11:23 CK-MB (CK-2) Rel Index 3.2 (0-4) 09/21/16 11:23 Troponin T 0.033 ng/mL (0.00-0.029) H 09/21/16 11:23 NT-Pro-B Natriuret Pep 2195 pg/mL (0-900) H 09/20/16 23:42 Total Protein 7.4 g/dL (6.3-8.2) 09/20/16 23:42 Albumin 2.7 g/dL (3.9-5) L 09/20/16 23:42 Albumin/Globulin Ratio 0.6 % 09/20/16 23:42 Triglycerides 164 mg/dL (2-149) H 09/20/16 23:42 Cholesterol 95 mg/dL (50-199) 09/20/16 23:42 LDL Cholesterol Direct 43 mg/dL (50-130) L 09/20/16 23:42 HDL Cholesterol 20 mg/dL (40-59) L 09/20/16 23:42 Cholesterol/HDL Ratio 4.75 % 09/20/16 23:42 Urine Color Yellow (Yellow) 09/21/16 17:12 Urine Turbidity Clear (Clear) 09/21/16 17:12 Urine pH 6.0 (5.0-7.0) 09/21/16 17:12 Ur Specific [place] 1.016 (1.003-1.030) 09/21/16 17:12 Urine Protein 30 mg/dl mg/dL (Negative) 09/21/16 17:12 Urine Glucose (UA) Neg mg/dL (Negative) 09/21/16 17:12 Urine Ketones Neg mg/dL (Negative) 09/21/16 17:12 Urine Blood Neg (Negative) 09/21/16 17:12 Urine Nitrite Neg (Negative) 09/21/16 17:12 Urine Bilirubin Neg (Negative) 09/21/16 17:12 Urine Urobilinogen < 2.0 mg/dL (<2.0) 09/21/16 17:12 Ur Leukocyte Esterase Tr (Negative) 09/21/16 17:12 Urine WBC (Auto) 6.0 /HPF (0.0-6.0) 09/21/16 17:12 Urine RBC (Auto) 1.0 /HPF (0.0-6.0) 09/21/16 17:12 U Epithel Cells (Auto) < 1.0 /HPF (0-13.0) 09/21/16 17:12 Urine Bacteria (Auto) 2+ /HPF (Negative) 09/21/16 17:12 Urine Mucus Few /HPF 09/21/16 17:12 Urine Eosinophils None seen (None Seen) 09/21/16 17:12
[2016-09-27] MEDS: DULCOLAX PR SCH (10:50)
[2016-09-27] MEDS: BABY ASPIRIN PO SCH (10:50)
[2016-09-27] MEDS: XARELTO PO SCH (10:51)
[2016-09-27] MEDS: PROTONIX FEEDTUBE SCH (10:51)
[2016-09-27] MEDS: ZOLOFT PO SCH (10:51)
[2016-09-27] MEDS: QUESTRAN PO SCH ×2 (10:51→22:39)
[2016-09-27] MEDS: BICITRA PO SCH (10:52)
--- NOTE | 2016-09-27 10:53 | Progress Note ---
Assessment and Plan Sepsis C.diff colitis Metabolic acidosis Chronic atrial fibrillation on xarelto for oral anticoagulation coreg and amiodarone discontinued d/t slow ventricular response. diltiazem dose reduced Hypertension Prior CVA DM Hx of DCMP now resolved, EF 60-65% on echo this admission Acute on chronic renal disease Hx of obstructive uropathy s/p nephrostomy tube Recommendations: Continue diltiazem for rate control of atrial fibrillation. The patient is on Xarelto therapy for anticoagulation. Conservative cardiac management. Subjective Date of service: 09/27/16 Principal diagnosis: darryl Interval history: No acute cardiac events overnight. Objective Vital Signs Temp Pulse Resp BP Pulse Ox 09/27/16 08:15 98.7 F 84 20 157/84 97 09/27/16 06:01 94 H 153/77 09/27/16 06:00 94 H 153/77 09/26/16 23:55 80 168/88 09/26/16 23:54 80 165/88 09/26/16 23:21 99.9 F H 80 16 165/88 09/26/16 19:15 86 179/97 09/26/16 16:20 99.3 F 92 H 20 175/93 99 09/26/16 13:26 176/96 09/26/16 13:25 176/96 09/26/16 12:45 98.7 F 80 20 176/96 98 - Physical Examination General: No Apparent Distress Cardiac: Positive: irregularly irregular - Labs and Meds CBC 09/27/16 Range/Units 05:27 WBC 8.0 (4.5-11.0) K/mm3 RBC 3.67 (3.65-5.03) M/mm3 Hgb 8.6 L (11.8-15.2) gm/dl Hct 26.3 L (35.5-45.6) % Plt Count 234 (140-440) K/mm3 Comprehensive Metabolic Panel 09/27/16 Range/Units 05:27 Sodium 137 (137-145) mmol/L Potassium 4.5 (3.6-5.0) mmol/L Chloride 99.2 (98-107) mmol/L Carbon Dioxide 28 (22-30) mmol/L BUN 35 H (9-20) mg/dL Creatinine 1.3 (0.8-1.5) mg/dL Glucose 106 H (75-100) mg/dL Calcium 7.7 L (8.4-10.2) mg/dL
--- NOTE | 2016-09-27 11:51 | Gastroenterology Consultation ---
History of Present Illness - Reason for Consult Consult date: 09/27/16 BRBPR Requesting physician: ARGELIA COSME - History of Present Illness Patient is a 61 y/o male who was admitted from the senior living with c/o diarrhea, fever, and N/V. He was found to have sepsis 2/2 c-diff colitis. PMH significant for DM, HTN, A-fib on Xarelto, CKD, CVA (06/23) with residual left hemiparesis and aphasia. He is s/p PEG placement and nephrostomy tube placement. Patient is unable to give history, information received via chart review. GI was consulted due to BRBPR that developed yesterday. Nursing reports BMs x 3 overnight and 1 this am with brown stool and bright red blood. HGB noted to be trending down. Pt is currently hemodynamically stable. Previous colonoscopy or Fhx is unknown. No melena or hematemesis noted per nursing. Past History Past Medical History: atrial fib, diabetes, hypertension, hyperlipidemia, renal failure, stroke, other (obtructive uropathy s/p right NT) Past Surgical History: Other (PEG tube, nephrostomy tube) Social history: other (senior living resident) Medications and Allergies Allergies Allergy/AdvReac Type Severity Reaction Status Date / Time No Known Allergies Allergy Unverified 09/20/16 23:22 Home Medications Medication Instructions Recorded Confirmed Last Taken Type Carvedilol [Coreg] 25 mg PO BID #60 tablet 11/25/14 05/26/16 1 Day Ago Rx Warfarin [Coumadin] 7.5 mg PO QDAY #30 tablet 11/25/14 05/26/16 1 Day Ago Rx metFORMIN [Glucophage] 500 mg PO QDAY #30 tab 11/25/14 05/27/16 1 Week Ago Rx Lisinopril/Hydrochlorothiazide 1 tab PO QDAY 11/05/15 05/26/16 1 Day Ago History [Zestoretic 20-12.5 mg] Sertraline HCl [Zoloft] 50 mg PO DAILY 11/05/15 05/26/16 1 Day Ago History amLODIPine [Norvasc] 5 mg PO DAILY 11/05/15 05/26/16 1 Day Ago History cloNIDine [Catapres] 0.2 mg PO BID 11/05/15 05/26/16 1 Day Ago History Aspirin [Aspirin TAB] 325 mg PO QDAY #30 tablet 06/01/16 Unknown Rx Bisacodyl [Dulcolax suppos] 10 mg NV QDAY PRN #30 supp.rect 06/01/16 Unknown Rx Carvedilol [Coreg] 25 mg PO BID #30 tablet 06/01/16 Unknown Rx Hydrochlorothiazide [HCTZ] 12.5 mg PO QDAY capsule 06/01/16 Unknown Rx Pantoprazole [Protonix TAB] 40 mg PO DAILY tablet 06/01/16 Unknown Rx Sertraline [Zoloft] 50 mg PO QDAY tablet 06/01/16 Unknown Rx Simvastatin [Zocor TAB] 40 mg PO QHS #30 tablet 06/01/16 Unknown Rx amLODIPine [Norvasc] 5 mg PO DAILY #30 tablet 06/01/16 Unknown Rx cloNIDine [Catapres] 0.2 mg PO BID #30 tablet 06/01/16 Unknown Rx metFORMIN [Glucophage] 500 mg PO QDDIAB tablet 06/01/16 Unknown Rx Amiodarone [Cordarone 200 MG TAB] 200 mg PO DAILY 09/20/16 09/20/16 Unknown History Aspirin [Aspirin BABY CHEW TAB] 81 mg PO QDAY 09/20/16 09/20/16 Unknown History AtorvaSTATin [Lipitor] 20 mg PO QHS 09/20/16 09/20/16 Unknown History Bisacodyl [Dulcolax suppos] 10 mg NV QDAY 09/20/16 09/20/16 Unknown History Carvedilol [Coreg] 12.5 mg PO BID 09/20/16 09/20/16 Unknown History Cholestyramine (with Sugar) 378 gm PO BID 09/20/16 09/20/16 Unknown History [Cholestyramine Powder] Diltiazem [CarDIZEM] 60 mg PO QID 09/20/16 09/20/16 Unknown History Insulin Aspart [NovoLOG Flexpen] 0 units SQ ACHS 09/20/16 09/20/16 Unknown History Ipratropium [Atrovent] 0.5 mg IH Q6HRT 09/20/16 09/20/16 Unknown History Pantoprazole [Protonix] 40 mg PO QDAY 09/20/16 09/20/16 Unknown History Rivaroxaban [Xarelto] 10 mg PO QDAY 09/20/16 09/20/16 Unknown History Sertraline HCl [Zoloft] 50 mg PO DAILY 09/20/16 09/20/16 Unknown History metFORMIN [Glucophage] 500 mg PO QDAY 09/20/16 09/20/16 Unknown History traMADol [Ultram] 50 mg PO Q8HR PRN 09/20/16 09/20/16 Unknown History Active Meds: Active Medications Acetaminophen (Tylenol) 650 mg PO Q4H PRN PRN Reason: Pain MILD(1-3)/Fever >100.5/NATARAJAN Last Admin: 09/26/16 23:53 Dose: 650 mg Albuterol (Proventil) 2.5 mg IH Q4HRT PRN PRN Reason: Shortness Of Breath Lipase/Protease/Amylase (Curt Snider 10,500 Unit) 1 each FEEDTUBE PRN PRN PRN Reason: For Clogged Feeding Tube Aspirin (Baby Aspirin) 81 mg PO QDAY [facility] Last Admin: 09/27/16 10:50 Dose: Not Given Atorvastatin Calcium (Lipitor) 20 mg PO QHS [facility] Last Admin: 09/26/16 23:53 Dose: 20 mg Bisacodyl (Dulcolax) 10 mg NV QDAY [facility] Last Admin: 09/27/16 10:50 Dose: Not Given Cholestyramine Resin (Questran) 4 gm PO BID [facility] Last Admin: 09/27/16 10:51 Dose: 4 gm Citric Acid/Sodium Citrate (Bicitra) 20 ml PO DAILY [facility] Stop: 09/28/16 10:01 Last Admin: 09/27/16 10:52 Dose: 20 ml Diltiazem HCl (Cardizem) 30 mg PO Q6HR [facility] Last Admin: 09/27/16 06:00 Dose: 30 mg Hydralazine HCl (Apresoline) 25 mg PO Q8HR [facility] Last Admin: 09/27/16 06:01 Dose: 25 mg Potassium Chloride 20 meq/Sodium Bicarbonate 75 meq/Dextrose 1,085 mls @ 125 mls/hr IV DIRECT [facility] Last Admin: 09/27/16 00:26 Dose: 125 mls/hr Insulin Aspart (Novolog) 0 units SUB-Q ACHS LAILA PRN Reason: Protocol Last Admin: 09/27/16 08:00 Dose: Not Given Metronidazole (Flagyl) 500 mg FEEDTUBE Q8H [facility] Stop: 09/30/16 23:59 Last Admin: 09/27/16 03:00 Dose: 500 mg Ondansetron HCl (Zofran) 4 mg IV Q8H PRN PRN Reason: N/V unrelieved by Erna Pantoprazole (Protonix) 40 mg FEEDTUBE DAILY [facility] Last Admin: 09/27/16 10:51 Dose: 40 mg Rivaroxaban (Xarelto) 10 mg PO QDAY LAILA PRN Reason: Protocol Last Admin: 09/27/16 10:51 Dose: 10 mg Sertraline HCl (Zoloft) 50 mg PO QDAY [facility] Last Admin: 09/27/16 10:51 Dose: 50 mg Simple Syrup (Simple Syrup) 15 ml FEEDTUBE PRN PRN PRN Reason: Hypoglycemia Simple Syrup (Simple Syrup) 30 ml FEEDTUBE PRN PRN PRN Reason: Hypoglycemia Sodium Bicarbonate (Sodium Bicarbonate) 325 mg FEEDTUBE PRN PRN PRN Reason: For Clogged Feeding Tube Tramadol HCl (Ultram) 50 mg PO Q8HR PRN PRN Reason: Pain Last Admin: 09/26/16 00:27 Dose: 50 mg Review of Systems - Review of Systems ROS unobtainable: due to mental status (aphasia) Exam - Constitutional Vital Signs: Temp Pulse Resp BP Pulse Ox 98.7 F 84 20 157/84 97 09/27/16 08:15 09/27/16 08:15 09/27/16 08:15 09/27/16 08:15 09/27/16 08:15 General appearance: no acute distress, other (nonverbal due to aphasia) - EENT Eyes: PERRL - Respiratory Respiratory: bilateral: diminished (anterior) - Cardiovascular Rhythm: irregularly irregular Heart Sounds: Present: S1 & S2 - Gastrointestinal General gastrointestinal: Present: soft, non-distended, normal bowel sounds, other (PEG tube intact) - Genitourinary Male Genitourinary: other (nephrostomy tube) - Neurologic Neurological: left side weakness, other (alert) - Labs CBC & Chem 7: 09/27/16 05:27 09/27/16 05:27 Lab Results: Laboratory Results - last 24 hr 09/26/16 09/26/16 09/27/16 16:52 21:17 05:27 WBC RBC Hgb Hct MCV MCH MCHC RDW Plt Count Add Manual Diff Total Counted Seg Neuts % (Manual) Band Neutrophils % Lymphocytes % (Manual) Reactive Lymphs % (Man) Monocytes % (Manual) Eosinophils % (Manual) Basophils % (Manual) Metamyelocytes % Myelocytes % Promyelocytes % Blast Cells % Nucleated RBC % Seg Neutrophils # Man Band Neutrophils # Lymphocytes # (Manual) Abs React Lymphs (Man) Monocytes # (Manual) Eosinophils # (Manual) Basophils # (Manual) Metamyelocytes # Myelocytes # Promyelocytes # Blast Cells # WBC Morphology Hypersegmented Neuts Hyposegmented Neuts Hypogranular Neuts Smudge Cells Toxic Granulation Toxic Vacuolation Dohle Bodies Pelger-Huet Anomaly [place] Rods Platelet Estimate Clumped Platelets Plt Clumps, EDTA Large Platelets Giant Platelets Platelet Satelliting Plt Morphology Comment RBC Morphology Dimorphic RBCs Polychromasia Hypochromasia Poikilocytosis Anisocytosis Microcytosis Macrocytosis Spherocytes Pappenheimer Bodies Sickle Cells Target Cells Tear Drop Cells Ovalocytes Helmet Cells [place] Bodies Sapphire Rings [place] Cells Bite Cells Crenated Cell Elliptocytes Acanthocytes (Spur) Rouleaux Hemoglobin C Crystals Schistocytes Malaria parasites Arcenio Bodies Hem Pathologist Commnt Sodium 137 Potassium 4.5 Chloride 99.2 Carbon Dioxide 28 Anion Gap 14 BUN 35 H Creatinine 1.3 Estimated GFR > 60 BUN/Creatinine Ratio 26.92 Glucose 106 H POC Glucose 119 H 115 H Calcium 7.7 L 09/27/16 09/27/16 05:27 06:26 WBC 8.0 RBC 3.67 Hgb 8.6 L Hct 26.3 L MCV 72 L MCH 24 L MCHC 33 RDW 26.0 H Plt Count 234 Add Manual Diff Complete Total Counted 100 Seg Neuts % (Manual) 62.0 Band Neutrophils % 0 Lymphocytes % (Manual) 20.0 Reactive Lymphs % (Man) 0 Monocytes % (Manual) 15.0 H Eosinophils % (Manual) 3.0 Basophils % (Manual) 0 Metamyelocytes % 0 Myelocytes % 0 Promyelocytes % 0 Blast Cells % 0 Nucleated RBC % Not Reportable Seg Neutrophils # Man 5.0 Band Neutrophils # 0.0 Lymphocytes # (Manual) 1.6 Abs React Lymphs (Man) 0.0 Monocytes # (Manual) 1.2 H Eosinophils # (Manual) 0.2 Basophils # (Manual) 0.0 Metamyelocytes # 0.0 Myelocytes # 0.0 Promyelocytes # 0.0 Blast Cells # 0.0 WBC Morphology Not Reportable Hypersegmented Neuts Not Reportable Hyposegmented Neuts Not Reportable Hypogranular Neuts Not Reportable Smudge Cells Not Reportable Toxic Granulation Not Reportable Toxic Vacuolation Not Reportable Dohle Bodies Not Reportable Pelger-Huet Anomaly Not Reportable [place] Rods Not Reportable Platelet Estimate Consistent w auto Clumped Platelets Not Reportable Plt Clumps, EDTA Not Reportable Large Platelets Not Reportable Giant Platelets Not Reportable Platelet Satelliting Not Reportable Plt Morphology Comment Not Reportable RBC Morphology Not Reportable Dimorphic RBCs Not Reportable Polychromasia Not Reportable Hypochromasia 1+ Poikilocytosis Not Reportable Anisocytosis 2+ Microcytosis Not Reportable Macrocytosis Not Reportable Spherocytes Not Reportable Pappenheimer Bodies Not Reportable Sickle Cells Not Reportable Target Cells Not Reportable Tear Drop Cells Not Reportable Ovalocytes Not Reportable Helmet Cells Not Reportable [place] Bodies Not Reportable [place] Rings Not Reportable [place] Cells Not Reportable Bite Cells Not Reportable Crenated Cell Not Reportable Elliptocytes Not Reportable Acanthocytes (Spur) Not Reportable Rouleaux Not Reportable Hemoglobin C Crystals Not Reportable Schistocytes Not Reportable Malaria parasites Not Reportable Arcenio Bodies Not Reportable Hem Pathologist Commnt No Sodium Potassium Chloride Carbon Dioxide Anion Gap BUN Creatinine Estimated GFR BUN/Creatinine Ratio Glucose POC Glucose 115 H Calcium Assessment and Plan 1.GI bleed 2.BRBPR 3.chronic A-fib on xarelto 4.sepsis 2/2 c-diff colitis -HGB 8.6 -trending down -continue to monitor H&H and transfuse as needed -BMs x 3 last night and x 1 this am with bright red blood -pt currently hemodynamically stable -hold Xarelto and blood thinning medications -hold tube feedings, clear liquids only -NPO after MN -will schedule for colonoscopy in am -if overt bleeding develops, recommend a bleeding scan -will follow
[2016-09-27] MEDS ORDERED: GOLYTELY PO ONE (12:02)
[2016-09-27 14:20] LABS: Hematocrit 24.3 % (35.5-45.6)
[2016-09-27 20:28] LABS: Hematocrit 24.5 % (35.5-45.6); Hemoglobin 8.1 gm/dl (11.8-15.2)
[2016-09-28] MEDS: CARDIZEM PO SCH ×4 (00:11→19:10)
[2016-09-28] MEDS: FLAGYL FEEDTUBE SCH ×3 (02:33→19:10)
[2016-09-28] MEDS: APRESOLINE PO SCH ×3 (05:37→22:15)
[2016-09-28 08:07] LABS: Hematocrit 28.2 % (35.5-45.6); Hemoglobin 8.9 gm/dl (11.8-15.2); Mean Corpuscular HGB Conc 32 % (32-34); Mean Corpuscular Volume 72 fl (84-94); Platelet Count 264 K/mm3 (140-440); Red Blood Count 3.89 M/mm3 (3.65-5.03); White Blood Count 7.6 K/mm3 (4.5-11.0)
[2016-09-28 08:10] LABS: Mean Corpuscular Hemoglobin 23 pg (28-32); Red Cell Distribution Width 26.2 % (13.2-15.2)
[2016-09-28 08:20] LABS: INR 1.13 (0.87-1.13)
[2016-09-28 08:22] LABS: Anion Gap 16 mmol/L; Blood Urea Nitrogen 24 mg/dL (9-20); Carbon Dioxide 30 mmol/L (22-30); Chloride 96.6 mmol/L (98-107); Glucose 87 mg/dL (75-100); Potassium 4.5 mmol/L (3.6-5.0); Sodium 138 mmol/L (137-145)
[2016-09-28] MEDS: NOVOLOG SUB-Q SCH ×4 (08:48→19:13)
--- NOTE | 2016-09-28 09:09 | Progress Note ---
Assessment and Plan Sepsis C.diff colitis Metabolic acidosis Anemia Chronic atrial fibrillation on xarelto for oral anticoagulation. Currently on hold for planned GI workup. coreg and amiodarone discontinued d/t slow ventricular response. diltiazem dose reduced Hypertension Prior CVA DM Hx of DCMP now resolved, EF 60-65% on echo this admission Acute on chronic renal disease Hx of obstructive uropathy s/p nephrostomy tube Recommendations: Continue diltiazem for rate control of atrial fibrillation. Conservative cardiac management. Subjective Date of service: 09/28/16 Principal diagnosis: darryl Interval history: For planned GI endoscopy today. Objective Vital Signs Temp Pulse Resp BP Pulse Ox 09/28/16 07:50 98.2 F 88 20 173/94 100 09/28/16 05:37 99 H 152/90 09/28/16 05:36 99 H 152/90 09/28/16 04:10 98.4 F 99 H 20 150/92 100 09/28/16 00:11 92 H 164/82 09/28/16 00:00 99.2 F 90 20 158/90 98 09/27/16 22:39 94 H 167/96 09/27/16 16:32 99.1 F 91 H 20 178/88 09/27/16 12:07 98.9 F 93 H 20 179/109 - Physical Examination General: No Apparent Distress Cardiac: Positive: irregularly irregular - Labs and Meds Coagulation 09/28/16 Range/Units 07:31 PT 15.1 H (12.2-14.9) Sec. INR 1.13 (0.87-1.13) CBC 09/27/16 09/27/16 09/28/16 Range/Units 13:58 19:52 07:31 WBC 7.6 (4.5-11.0) K/mm3 RBC 3.89 (3.65-5.03) M/mm3 Hgb 8.0 L 8.1 L 8.9 L (11.8-15.2) gm/dl Hct 24.3 L 24.5 L 28.2 L (35.5-45.6) % Plt Count 264 (140-440) K/mm3 Comprehensive Metabolic Panel 09/28/16 Range/Units 07:31 Sodium 138 (137-145) mmol/L Potassium 4.5 (3.6-5.0) mmol/L Chloride 96.6 L (98-107) mmol/L Carbon Dioxide 30 (22-30) mmol/L BUN 24 H (9-20) mg/dL Creatinine 1.2 (0.8-1.5) mg/dL Glucose 87 (75-100) mg/dL Calcium 8.0 L (8.4-10.2) mg/dL
[2016-09-28 10:18] LABS: Anisocytosis 2+; Basophils % (Manual) 0 % (0.0-1.8); Blastocytes % (Manual) 0 %; Diff Status Complete; Hypochromasia 1+
[2016-09-28] MEDS: DULCOLAX PR SCH (11:22)
[2016-09-28] MEDS: BABY ASPIRIN PO SCH (11:22)
[2016-09-28] MEDS: XARELTO PO SCH (11:23)
[2016-09-28] MEDS: QUESTRAN PO SCH ×2 (11:23→22:15)
[2016-09-28] MEDS ORDERED: APRESOLINE IV PRN (12:03)
--- NOTE | 2016-09-28 13:49 | Progress Note ---
Assessment and Plan Assessment and plan: Patient is 61-year-old male from [facility] with a history of hypertension, A. 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 difficile colitis. Sepsis due to C. difficile colitis - continue treatment with Flagyl. ID Physician following. I discussed case with her Acute on CKD. Due to ATN. Now resolved. Creatine 1.2 today. Obstructive uropathy with right nephrostomy tube with pyuria - culture growing GNR, staph aureus. GNS, but WBC trending down on Flagyl alone. Monitor off broad spectrum antibiotics; ID Physician following. Nephrostomy tube recommended to be exchanged every 10 weeks. Interventional radiologist recommend consulting Urologist. Consulted Dr. Hendrickson. He has seen patient before. Bloody stools. He was evaluated by GI physician. For colonoscopy. Will continue to monitor H/H Q 8hrs A. fib - rate controlled onCardizem. Xarelto for anticoagulation. Diabetes mellitus type 2- insulin/SSI Recent CVA with residual left hemiparesis and aphasia, status post PEG placement . Malnutrition Anemia - anemia of CKD, chronic inflamation; monitor H&H. Hemoglobin 8.9 today DVT prophylaxis - on Xarelto History Interval history: patient had bright red bloody stools Hospitalist Physical - Physical exam Narrative exam: Gen appearance: Not in acute distress HEENT: normocephalic, atraumatic Neck: supple, no JVD, IRAM Lungs: Clear to auscultation bilaterally, no crackles or wheezes Heart :S1 and S2 regular, no murmurs, rubs or gallop Abdomen: Soft, Non tender, non distended, bowel sounds present, nephrostomy tube right Extremities :no edema, no clubbing or cyanosis Neuro: Awake,alert,non verbal - Constitutional Vitals: Temp Pulse Resp BP Pulse Ox 98.2 F 88 20 173/94 100 09/28/16 07:50 09/28/16 07:50 09/28/16 07:50 09/28/16 07:50 09/28/16 07:50 General appearance: Present: no acute distress Results - Labs CBC & Chem 7: 09/28/16 07:31 09/28/16 07:31 Labs: Laboratory Last Values WBC 7.6 K/mm3 (4.5-11.0) 09/28/16 07:31 RBC 3.89 M/mm3 (3.65-5.03) 09/28/16 07:31 Hgb 8.9 gm/dl (11.8-15.2) L 09/28/16 07:31 Hct 28.2 % (35.5-45.6) L 09/28/16 07:31 MCV 72 fl (84-94) L 09/28/16 07:31 MCH 23 pg (28-32) L 09/28/16 07:31 MCHC 32 % (32-34) 09/28/16 07:31 RDW 26.2 % (13.2-15.2) H 09/28/16 07:31 Plt Count 264 K/mm3 (140-440) 09/28/16 07:31 Add Manual Diff Complete 09/28/16 07:31 Total Counted 100 09/28/16 07:31 Seg Neuts % (Manual) 68.0 % (40.0-70.0) 09/28/16 07:31 Band Neutrophils % 3.0 % 09/28/16 07:31 Lymphocytes % (Manual) 10.0 % (13.4-35.0) L 09/28/16 07:31 Reactive Lymphs % (Man) 0 % 09/28/16 07:31 Monocytes % (Manual) 18.0 % (0.0-7.3) H 09/28/16 07:31 Eosinophils % (Manual) 1.0 % (0.0-4.3) 09/28/16 07:31 Basophils % (Manual) 0 % (0.0-1.8) 09/28/16 07:31 Metamyelocytes % 0 % 09/28/16 07:31 Myelocytes % 0 % 09/28/16 07:31 Promyelocytes % 0 % 09/28/16 07:31 Blast Cells % 0 % 09/28/16 07:31 Nucleated RBC % Not Reportable 09/28/16 07:31 Seg Neutrophils # Man 5.2 K/mm3 (1.8-7.7) 09/28/16 07:31 Band Neutrophils # 0.2 K/mm3 09/28/16 07:31 Lymphocytes # (Manual) 0.8 K/mm3 (1.2-5.4) L 09/28/16 07:31 Abs React Lymphs (Man) 0.0 K/mm3 09/28/16 07:31 Monocytes # (Manual) 1.4 K/mm3 (0.0-0.8) H 09/28/16 07:31 Eosinophils # (Manual) 0.1 K/mm3 (0.0-0.4) 09/28/16 07:31 Basophils # (Manual) 0.0 K/mm3 (0.0-0.1) 09/28/16 07:31 Metamyelocytes # 0.0 K/mm3 09/28/16 07:31 Myelocytes # 0.0 K/mm3 09/28/16 07:31 Promyelocytes # 0.0 K/mm3 09/28/16 07:31 Blast Cells # 0.0 K/mm3 09/28/16 07:31 WBC Morphology Not Reportable 09/28/16 07:31 Hypersegmented Neuts Not Reportable 09/28/16 07:31 Hyposegmented Neuts Not Reportable 09/28/16 07:31 Hypogranular Neuts Not Reportable 09/28/16 07:31 Smudge Cells Not Reportable 09/28/16 07:31 Toxic Granulation Not Reportable 09/28/16 07:31 Toxic Vacuolation Not Reportable 09/28/16 07:31 Dohle Bodies Not Reportable 09/28/16 07:31 Pelger-Huet Anomaly Not Reportable 09/28/16 07:31 [place] Rods Not Reportable 09/28/16 07:31 Platelet Estimate Not Reportable 09/28/16 07:31 Clumped Platelets Not Reportable 09/28/16 07:31 Plt Clumps, EDTA Not Reportable 09/28/16 07:31 Large Platelets Not Reportable 09/28/16 07:31 Giant Platelets Not Reportable 09/28/16 07:31 Platelet Satelliting Not Reportable 09/28/16 07:31 Plt Morphology Comment Not Reportable 09/28/16 07:31 RBC Morphology Not Reportable 09/28/16 07:31 Dimorphic RBCs Not Reportable 09/28/16 07:31 Polychromasia Not Reportable 09/28/16 07:31 Hypochromasia 1+ 09/28/16 07:31 Poikilocytosis Not Reportable 09/28/16 07:31 Anisocytosis 2+ 09/28/16 07:31 Microcytosis Not Reportable 09/28/16 07:31 Macrocytosis Not Reportable 09/28/16 07:31 Spherocytes Not Reportable 09/28/16 07:31 Pappenheimer Bodies Not Reportable 09/28/16 07:31 Sickle Cells Not Reportable 09/28/16 07:31 Target Cells Not Reportable 09/28/16 07:31 Tear Drop Cells Not Reportable 09/28/16 07:31 Ovalocytes Not Reportable 09/28/16 07:31 Helmet Cells Not Reportable 09/28/16 07:31 [place] Bodies Not Reportable 09/28/16 07:31 [place] Rings Not Reportable 09/28/16 07:31 [place] Cells Not Reportable 09/28/16 07:31 Bite Cells Not Reportable 09/28/16 07:31 Crenated Cell Not Reportable 09/28/16 07:31 Elliptocytes Not Reportable 09/28/16 07:31 Acanthocytes (Spur) Not Reportable 09/28/16 07:31 Rouleaux Not Reportable 09/28/16 07:31 Hemoglobin C Crystals Not Reportable 09/28/16 07:31 Schistocytes Not Reportable 09/28/16 07:31 Malaria parasites Not Reportable 09/28/16 07:31 Arcenio Bodies Not Reportable 09/28/16 07:31 Hem Pathologist Commnt No 09/28/16 07:31 PT 15.1 Sec. (12.2-14.9) H 09/28/16 07:31 INR 1.13 (0.87-1.13) 09/28/16 07:31 APTT 30.1 Sec. (24.2-36.6) 09/20/16 23:49 Sodium 138 mmol/L (137-145) 09/28/16 07:31 Potassium 4.5 mmol/L (3.6-5.0) 09/28/16 07:31 Chloride 96.6 mmol/L (98-107) L 09/28/16 07:31 Carbon Dioxide 30 mmol/L (22-30) 09/28/16 07:31 Anion Gap 16 mmol/L 09/28/16 07:31 BUN 24 mg/dL (9-20) H 09/28/16 07:31 Creatinine 1.2 mg/dL (0.8-1.5) 09/28/16 07:31 Estimated GFR > 60 ml/min 09/28/16 07:31 BUN/Creatinine Ratio 20.00 % 09/28/16 07:31 Glucose 87 mg/dL (75-100) 09/28/16 07:31 POC Glucose 100 (70-105) 09/28/16 12:24 Lactic Acid 0.90 mmol/L (0.7-2.0) 09/21/16 01:03 Calcium 8.0 mg/dL (8.4-10.2) L 09/28/16 07:31 Magnesium 2.70 mg/dL (1.7-2.3) H 09/23/16 12:09 Total Bilirubin 0.20 mg/dL (0.1-1.2) 09/20/16 23:42 AST 13 units/L (5-40) 09/20/16 23:42 ALT 13 units/L (7-56) 09/20/16 23:42 Alkaline Phosphatase 73 units/L (35-129) 09/20/16 23:42 Total Creatine Kinase 53 units/L (55-170) L 09/21/16 11:23 CK-MB (CK-2) 1.7 ng/mL (0.0-4.0) 09/21/16 11:23 CK-MB (CK-2) Rel Index 3.2 (0-4) 09/21/16 11:23 Troponin T 0.033 ng/mL (0.00-0.029) H 09/21/16 11:23 NT-Pro-B Natriuret Pep 2195 pg/mL (0-900) H 09/20/16 23:42 Total Protein 7.4 g/dL (6.3-8.2) 09/20/16 23:42 Albumin 2.7 g/dL (3.9-5) L 09/20/16 23:42 Albumin/Globulin Ratio 0.6 % 09/20/16 23:42 Triglycerides 164 mg/dL (2-149) H 09/20/16 23:42 Cholesterol 95 mg/dL (50-199) 09/20/16 23:42 LDL Cholesterol Direct 43 mg/dL (50-130) L 09/20/16 23:42 HDL Cholesterol 20 mg/dL (40-59) L 09/20/16 23:42 Cholesterol/HDL Ratio 4.75 % 09/20/16 23:42 Urine Color Yellow (Yellow) 09/21/16 17:12 Urine Turbidity Clear (Clear) 09/21/16 17:12 Urine pH 6.0 (5.0-7.0) 09/21/16 17:12 Ur Specific [place] 1.016 (1.003-1.030) 09/21/16 17:12 Urine Protein 30 mg/dl mg/dL (Negative) 09/21/16 17:12 Urine Glucose (UA) Neg mg/dL (Negative) 09/21/16 17:12 Urine Ketones Neg mg/dL (Negative) 09/21/16 17:12 Urine Blood Neg (Negative) 09/21/16 17:12 Urine Nitrite Neg (Negative) 09/21/16 17:12 Urine Bilirubin Neg (Negative) 09/21/16 17:12 Urine Urobilinogen < 2.0 mg/dL (<2.0) 09/21/16 17:12 Ur Leukocyte Esterase Tr (Negative) 09/21/16 17:12 Urine WBC (Auto) 6.0 /HPF (0.0-6.0) 09/21/16 17:12 Urine RBC (Auto) 1.0 /HPF (0.0-6.0) 09/21/16 17:12 U Epithel Cells (Auto) < 1.0 /HPF (0-13.0) 09/21/16 17:12 Urine Bacteria (Auto) 2+ /HPF (Negative) 09/21/16 17:12 Urine Mucus Few /HPF 09/21/16 17:12 Urine Eosinophils None seen (None Seen) 09/21/16 17:12
--- NOTE | 2016-09-28 14:44 | Progress Note ---
Assessment and Plan Assessment: 1) Sepsis: resolved. Etiology - secondary to acute C diff colitis. 2) Acute C diff colitis- moderate: improving 3) Right obstructive uropathy: S/P nephrostomy tube / stents with purulence this admission, likely due to a track abscess. -UA negative on admission. -US kidney showed no kidney stones, no hydronephrosis. -Right NT cultures growing MRSA, Pseudomonas and SOURCE INSPECTOR ? colonizers. -CT shows proximal right ureteral stone -S/P NT exchange on 09/24 4) Acute on CKD - resolved 5) Recent CVA with left hemiparesia and aphasia 6) A fib 7) Anemia 8) GI bleed Plan: -continue metronidazole, day 8 of 10 -getting colonoscopy today -NT exchange every 10 weeks per [facility] records -avoid broad-spectrum antibiotics as possible -upon discharge continue metronidazole 500 mg PO q 8 hours for total 10 days from 09/21 until 09/30/[address] Keating for your consultation, will f/u with you Agnes Rodriguez MD Infectious Diseases Specialist [facility] M [phone] O [phone] Subjective Date of service: 09/28/16 Principal diagnosis: darryl Interval history: No complaints. Non verbal. +diarrhea. Microbiology: Blood cultures: 09/21 ngdt Stool C diff 09/21 positive Nephrostomy tube culture + MRSA, SOURCE INSPECTOR and GNR Current Antibiotics: 09/21 Metronidazole Previous antibiotics: 09/21 Vancomycin IV x 1 Objective - Exam Narrative Exam: General appearance: Alert in NAD, non verbal due to aphasia Eyes: anicteric sclerae, moist conjunctivae; PERRLA HENT: Atraumatic; oropharynx clear no oral thrush; normal hard and soft palate. Normal external ears. Neck: Trachea midline; supple, no thyromegaly or lymphadenopathy Lungs: CTA CV: RRR, no murmur Abdomen: Soft, non-tender; no masses or hepatosplenomegaly. PEG in place : right NT with clear urine Extremities: ++peripheral edema or extremity lymphadenopathy Skin: Normal temperature, turgor and texture; no rash, ulcers or subcutaneous nodules Psych: Appropriate affect, alert and oriented to person, place and time. Neuro: alert and oriented x 1.Right hemiparesis Lines: No CVL / PICC - Constitutional Vitals: Vital Signs Temp Pulse Resp BP Pulse Ox 98.3 F 100 H 14 159/89 99 09/28/16 14:43 09/28/16 14:43 09/28/16 14:43 09/28/16 14:43 09/28/16 14:43 Temperature -Last 24 Hours Temperature 98.3 F Temperature 98.3 F Temperature 98.9 F Temperature 98.2 F Temperature 98.4 F Temperature 99.2 F Temperature 99.1 F - Labs CBC & Chem 7: 09/28/16 07:31 09/28/16 07:31 Labs: Abnormal lab results 09/27/16 09/28/16 09/28/16 Range/Units 19:52 07:31 07:31 Hgb 8.1 L 8.9 L (11.8-15.2) gm/dl Hct 24.5 L 28.2 L (35.5-45.6) % MCV 72 L (84-94) fl MCH 23 L (28-32) pg RDW 26.2 H (13.2-15.2) % Lymphocytes % (Manual) 10.0 L (13.4-35.0) % Monocytes % (Manual) 18.0 H (0.0-7.3) % Lymphocytes # (Manual) 0.8 L (1.2-5.4) K/mm3 Monocytes # (Manual) 1.4 H (0.0-0.8) K/mm3 PT (12.2-14.9) Sec. Chloride 96.6 L (98-107) mmol/L BUN 24 H (9-20) mg/dL Calcium 8.0 L (8.4-10.2) mg/dL 09/28/16 Range/Units 07:31 Hgb (11.8-15.2) gm/dl Hct (35.5-45.6) % MCV (84-94) fl MCH (28-32) pg RDW (13.2-15.2) % Lymphocytes % (Manual) (13.4-35.0) % Monocytes % (Manual) (0.0-7.3) % Lymphocytes # (Manual) (1.2-5.4) K/mm3 Monocytes # (Manual) (0.0-0.8) K/mm3 PT 15.1 H (12.2-14.9) Sec. Chloride (98-107) mmol/L BUN (9-20) mg/dL Calcium (8.4-10.2) mg/dL
[2016-09-28] MEDS: NACL 0.9% 1000 ML 1,000 ML IV SCH (14:54)
[2016-09-28] MEDS ORDERED: DIPRIVAN 10 MG/ML IV ONE ×2 (15:57)
--- NOTE | 2016-09-28 15:57 | Anesthesia Consultation ---
Anesthesia Consult and Med Hx Date of service: 09/28/16 - Pulmonary Exam CTA: Yes - Cardiac Exam Cardiac Exam: RRR - Pre-Operative Health Status ASA Pre-Surgery Classification: ASA3 Proposed Anesthetic Plan: MAC - Pre-Anesthesia Comment Pre-Anesthesia Comments: Acute C.diff - Pulmonary Hx Smoking: No Hx Pneumonia: Yes (>5 YRS AGO) - Cardiovascular System Hx Hypertension: Yes (EF 60-65% (09/23)) Hx Cardia Arrhythmia: Yes (Afib on diltiazem) - Central Nervous System CVA: Yes (lt hemiparesis/aphasia) Hx Psychiatric Problems: No - Endocrine Hx Renal Disease: Yes (AKD, obstructive uropathy sp nephrostomy tube) Hx Non-Insulin Dependent Diabetes: Yes - Other Systems Hx Alcohol Use: No Hx Substance Use: No - Additional Comments Anesthesia Medical History Comments: NAC
--- NOTE | 2016-09-28 15:58 | Anesthesia Day of Surgery ---
Anesthesia Day of Surgery - Day of Surgery Patient Examined: Yes Patient H&P Reviewed: Yes Patient is NPO: Yes
--- NOTE | 2016-09-28 17:38 | Anesthesia Consultation ---
Anesthesia Consult and Med Hx Date of service: 09/28/16 - Airway Anesthetic Teeth Evaluation: Poor ROM Head & Neck: Adequate Mental/Hyoid Distance: Adequate Mallampati Class: Class II Intubation Access Assessment: Probably Good - Pre-Operative Health Status ASA Pre-Surgery Classification: ASA3 Proposed Anesthetic Plan: MAC - Pulmonary Hx Smoking: No Hx Pneumonia: Yes (>5 YRS AGO) - Cardiovascular System Hx Hypertension: Yes (EF 60-65% (09/23)) Hx Cardia Arrhythmia: Yes (Afib on diltiazem) - Central Nervous System CVA: Yes (lt hemiparesis/aphasia) Hx Psychiatric Problems: Yes (non-verbal) - Endocrine Hx Renal Disease: Yes (AKD, obstructive uropathy sp nephrostomy tube) Hx Non-Insulin Dependent Diabetes: Yes - Other Systems Hx Alcohol Use: No Hx Substance Use: No - Additional Comments Anesthesia Medical History Comments: NAC
--- NOTE | 2016-09-28 17:38 | Anesthesia Day of Surgery ---
Anesthesia Day of Surgery - Day of Surgery Patient Examined: Yes Patient H&P Reviewed: Yes Patient is NPO: Yes
--- NOTE | 2016-09-28 18:00 | Consultation ---
History of Present Illness - Reason for Consult Consult date: 09/28/16 - History of Present Illness Patient is 61-year-old male from [facility] with a history of hypertension, A. 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 difficile colitis. Sepsis due to C. difficile colitis - continue treatment with Flagyl. ID Physician following. Acute on CKD. Due to ATN. Now resolved. Creatine 1.2 today. Obstructive uropathy with right nephrostomy tube with pyuria - culture growing GNR, staph aureus. GNS, but WBC trending down on Flagyl alone. Monitor off broad spectrum antibiotics; ID Physician following. Nephrostomy tube recommended to be exchanged every 10 weeks. 1. Nephrostogram through the indwelling right 10 Czech nephrostomy tube. 2. Right-sided 10 Czech nephrostomy tube exchange DATE: 09/24/16 PURCHASING ADMINISTRATIVE ASSISTANT: GUEVARA GARRISON MD Pre-op diagnosis: GI Bleed Post-op diagnosis: other (Colitis) Findings: 1. Moderately severe colitis in sigmoid with patchy areas throughout colon - Although C diff is in the differential, ischemia (with ?colonization with C diff) was the gross appearance - The ulcers were very friable, and showed signs of recent bleeding 2. 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 (senior care resident) Medications and Allergies Allergies Allergy/AdvReac Type Severity Reaction Status Date / Time No Known Allergies Allergy Unverified 09/20/16 23:22 Home Medications Medication Instructions Recorded Confirmed Last Taken Type Carvedilol [Coreg] 25 mg PO BID #60 tablet 11/25/14 05/26/16 1 Day Ago Rx Warfarin [Coumadin] 7.5 mg PO QDAY #30 tablet 11/25/14 05/26/16 1 Day Ago Rx metFORMIN [Glucophage] 500 mg PO QDAY #30 tab 11/25/14 05/27/16 1 Week Ago Rx Lisinopril/Hydrochlorothiazide 1 tab PO QDAY 11/05/15 05/26/16 1 Day Ago History [Zestoretic 20-12.5 mg] Sertraline HCl [Zoloft] 50 mg PO DAILY 11/05/15 05/26/16 1 Day Ago History amLODIPine [Norvasc] 5 mg PO DAILY 11/05/15 05/26/16 1 Day Ago History cloNIDine [Catapres] 0.2 mg PO BID 11/05/15 05/26/16 1 Day Ago History Aspirin [Aspirin TAB] 325 mg PO QDAY #30 tablet 06/01/16 Unknown Rx Bisacodyl [Dulcolax suppos] 10 mg [place] QDAY PRN #30 supp.rect 06/01/16 Unknown Rx Carvedilol [Coreg] 25 mg PO BID #30 tablet 06/01/16 Unknown Rx Hydrochlorothiazide [HCTZ] 12.5 mg PO QDAY capsule 06/01/16 Unknown Rx Pantoprazole [Protonix TAB] 40 mg PO DAILY tablet 06/01/16 Unknown Rx Sertraline [Zoloft] 50 mg PO QDAY tablet 06/01/16 Unknown Rx Simvastatin [Zocor TAB] 40 mg PO QHS #30 tablet 06/01/16 Unknown Rx amLODIPine [Norvasc] 5 mg PO DAILY #30 tablet 06/01/16 Unknown Rx cloNIDine [Catapres] 0.2 mg PO BID #30 tablet 06/01/16 Unknown Rx metFORMIN [Glucophage] 500 mg PO QDDIAB tablet 06/01/16 Unknown Rx Amiodarone [Cordarone 200 MG TAB] 200 mg PO DAILY 09/20/16 09/20/16 Unknown History Aspirin [Aspirin BABY CHEW TAB] 81 mg PO QDAY 09/20/16 09/20/16 Unknown History AtorvaSTATin [Lipitor] 20 mg PO QHS 09/20/16 09/20/16 Unknown History Bisacodyl [Dulcolax suppos] 10 mg [place] QDAY 09/20/16 09/20/16 Unknown History Carvedilol [Coreg] 12.5 mg PO BID 09/20/16 09/20/16 Unknown History Cholestyramine (with Sugar) 378 gm PO BID 09/20/16 09/20/16 Unknown History [Cholestyramine Powder] Diltiazem [CarDIZEM] 60 mg PO QID 09/20/16 09/20/16 Unknown History Insulin Aspart [NovoLOG Flexpen] 0 units SQ ACHS 09/20/16 09/20/16 Unknown History Ipratropium [Atrovent] 0.5 mg IH Q6HRT 09/20/16 09/20/16 Unknown History Pantoprazole [Protonix] 40 mg PO QDAY 09/20/16 09/20/16 Unknown History Rivaroxaban [Xarelto] 10 mg PO QDAY 09/20/16 09/20/16 Unknown History Sertraline HCl [Zoloft] 50 mg PO DAILY 09/20/16 09/20/16 Unknown History metFORMIN [Glucophage] 500 mg PO QDAY 09/20/16 09/20/16 Unknown History traMADol [Ultram] 50 mg PO Q8HR PRN 09/20/16 09/20/16 Unknown History Active Meds: Active Medications Acetaminophen (Tylenol) 650 mg PO Q4H PRN PRN Reason: Pain MILD(1-3)/Fever >100.5/NATARAJAN Last Admin: 09/26/16 23:53 Dose: 650 mg Albuterol (Proventil) 2.5 mg IH Q4HRT PRN PRN Reason: Shortness Of Breath Lipase/Protease/Amylase (Curt Snider 10,500 Unit) 1 each FEEDTUBE PRN PRN PRN Reason: For Clogged Feeding Tube Aspirin (Baby Aspirin) 81 mg PO QDAY [facility] Last Admin: 09/28/16 11:22 Dose: Not Given Atorvastatin Calcium (Lipitor) 20 mg PO QHS [facility] Last Admin: 09/27/16 22:40 Dose: 20 mg Bisacodyl (Dulcolax) 10 mg OH QDAY [facility] Last Admin: 09/28/16 11:22 Dose: Not Given Cholestyramine Resin (Questran) 4 gm PO BID [facility] Last Admin: 09/28/16 11:23 Dose: Not Given Diltiazem HCl (Cardizem) 30 mg PO Q6HR [facility] Last Admin: 09/28/16 11:23 Dose: Not Given Hydralazine HCl (Apresoline) 25 mg PO Q8HR [facility] Last Admin: 09/28/16 05:37 Dose: 25 mg Hydralazine HCl (Apresoline) 10 mg IV Q4HR PRN PRN Reason: SBP>170 or DBP>110 Sodium Chloride (Nacl 0.9% 1000 Ml) 1,000 mls @ 50 mls/hr IV DIRECT [facility] Last Admin: 09/28/16 14:54 Dose: 50 mls/hr Insulin Aspart (Novolog) 0 units SUB-Q Q6HR LAILA PRN Reason: Protocol Metronidazole (Flagyl) 500 mg FEEDTUBE Q8H [facility] Stop: 09/30/16 23:59 Last Admin: 09/28/16 11:23 Dose: Not Given Ondansetron HCl (Zofran) 4 mg IV Q8H PRN PRN Reason: N/V unrelieved by Reglan Pantoprazole (Protonix) 40 mg FEEDTUBE DAILY [facility] Last Admin: 09/27/16 10:51 Dose: 40 mg Rivaroxaban (Xarelto) 10 mg PO QDAY [facility] PRN Reason: Protocol Last Admin: 09/28/16 11:23 Dose: Not Given Sertraline HCl (Zoloft) 50 mg PO QDAY [facility] Last Admin: 09/27/16 10:51 Dose: 50 mg Simple Syrup (Simple Syrup) 15 ml FEEDTUBE PRN PRN PRN Reason: Hypoglycemia Simple Syrup (Simple Syrup) 30 ml FEEDTUBE PRN PRN PRN Reason: Hypoglycemia Sodium Bicarbonate (Sodium Bicarbonate) 325 mg FEEDTUBE PRN PRN PRN Reason: For Clogged Feeding Tube Tramadol HCl (Ultram) 50 mg PO Q8HR PRN PRN Reason: Pain Last Admin: 09/26/16 00:27 Dose: 50 mg Exam - Constitutional Vitals: Temp Pulse Resp BP Pulse Ox 98.3 F 100 H 14 159/89 99 09/28/16 14:43 09/28/16 14:43 09/28/16 14:43 09/28/16 14:43 09/28/16 14:43 Results - Labs CBC & Chem 7: 09/28/16 07:31 09/28/16 07:31 Labs: Abnormal lab results 09/27/16 09/28/16 09/28/16 Range/Units 19:52 07:31 07:31 Hgb 8.1 L 8.9 L (11.8-15.2) gm/dl Hct 24.5 L 28.2 L (35.5-45.6) % MCV 72 L (84-94) fl MCH 23 L (28-32) pg RDW 26.2 H (13.2-15.2) % Lymphocytes % (Manual) 10.0 L (13.4-35.0) % Monocytes % (Manual) 18.0 H (0.0-7.3) % Lymphocytes # (Manual) 0.8 L (1.2-5.4) K/mm3 Monocytes # (Manual) 1.4 H (0.0-0.8) K/mm3 PT (12.2-14.9) Sec. Chloride 96.6 L (98-107) mmol/L BUN 24 H (9-20) mg/dL Calcium 8.0 L (8.4-10.2) mg/dL 09/28/16 Range/Units 07:31 Hgb (11.8-15.2) gm/dl Hct (35.5-45.6) % MCV (84-94) fl MCH (28-32) pg RDW (13.2-15.2) % Lymphocytes % (Manual) (13.4-35.0) % Monocytes % (Manual) (0.0-7.3) % Lymphocytes # (Manual) (1.2-5.4) K/mm3 Monocytes # (Manual) (0.0-0.8) K/mm3 PT 15.1 H (12.2-14.9) Sec. Chloride (98-107) mmol/L BUN (9-20) mg/dL Calcium (8.4-10.2) mg/dL
--- NOTE | 2016-09-28 18:07 | Post Operative Note ---
Pre-op diagnosis: GI Bleed Post-op diagnosis: other (Colitis) Findings: 1. Moderately severe colitis in sigmoid with patchy areas throughout colon - Although C diff is in the differential, ischemia (with ?colonization with C diff) was the gross appearance - The ulcers were very friable, and showed signs of recent bleeding 2. Fair prep, with a moderate amount of liquid stool Procedure: Colonoscopy with cold biopsy Anesthesia: MAC Surgeon: SORAIDA MONGE Estimated blood loss: minimal Pathology: list (1. Sigmoid colon ulcers) Specimen disposition: to lab Condition: stable Disposition: floor (Recs: 1. OK to resume regular diet. 2. Given bleeding with need for transfusions, will hold xarelto until , and ASA until Tuesday (1day and 3 days). 3. Maintain adequate BP and avoid hypotension. 4. Continue tx of C diff and avoid unnecessary antibiotics.)
--- NOTE | 2016-09-28 18:26 | Post Anesthesia Evaluation ---
- Post Anesthesia Evaluation Patient Participated: Yes Airway Patent: Yes Stable Respiratory Function: Yes Nausea/Vomiting: No Temp > 96.8F: Yes Pain Manageable: Yes Adequeate Hydration: Yes Anesthesia Complications: No
[2016-09-28] MEDS ORDERED: PANCREAZE DR 10,500 UNIT FEEDTUBE PRN (19:01)
[2016-09-28] MEDS ORDERED: SODIUM BICARBONATE FEEDTUBE PRN (19:01)
[2016-09-28] MEDS ORDERED: SIMPLE SYRUP FEEDTUBE PRN ×2 (19:01)
[2016-09-28] MEDS: ZOLOFT PO SCH (19:10)
[2016-09-28] MEDS: PROTONIX FEEDTUBE SCH (19:10)
[2016-09-28] MEDS: BICITRA PO SCH (19:11)
--- NOTE | 2016-09-28 22:46 | Operative Report ---
PROCEDURE PERFORMED: Colonoscopy with cold biopsy. PREOPERATIVE DIAGNOSES: Gastrointestinal bleeding, Clostridium difficile colitis. POSTOPERATIVE DIAGNOSES: Focal colitis, most consistent with ischemia with Clostridium difficile as possible. ENDOSCOPIST: Christian Mares MD INSTRUMENT: BATS video endoscope. MEDICATIONS: MAC anesthesia by Anesthesia Services. COMPLICATIONS: No apparent complications. ESTIMATED BLOOD LOSS: Minimal. SPECIMENS: Sigmoid colitis ulcers. IMPLANTS: None. ASSISTANTS: None. CONDITION AT COMPLETION: Stable. TECHNIQUE: The patient was informed of the risks and benefits of the procedure. He signed the informed consent to proceed. He was placed in left lateral decubitus position. The above sedative medications were given. His vital signs remained stable throughout the procedure. The instrument was advanced from the anus to the cecum under direct visualization. The cecum was identified by the appendiceal orifice and the ileocecal valve. At that point, the bowel was insufflated and the endoscope was slowly withdrawn. The quality of preparation was only fair with a moderate amount of liquid stool. FINDINGS: 1. Fair preparation with a moderate amount of liquid stool. 2. Moderately severe colitis in the sigmoid with other patchy small ulcers throughout the colon. a. The ulcers were very shallow and inflamed in appearance; C. difficile is in the differential, but given the focal nature of the ulcers, I am more concerned about ischemia with possible secondary colonization with C. difficile. b. The ulcers were very friable and showed signs of recent bleeding; random biopsies were taken of the most severe ulcers in the sigmoid colon. RECOMMENDATIONS: 1. Okay to resume regular diet. 2. Given bleeding with the need for transfusions, I would hold the Xarelto for 1 day, until and the aspirin for 3 days, until Tuesday. 3. Maintain adequate blood pressure and avoid hypotension. 4. Continue treatment of C. difficile and avoid unnecessary antibiotics. JOB# [id number] YURI/MADISON
[2016-09-29] MEDS: NOVOLOG SUB-Q SCH ×4 (00:31→18:21)
[2016-09-29] MEDS: CARDIZEM PO SCH ×4 (00:50→17:48)
[2016-09-29] MEDS: FLAGYL FEEDTUBE SCH ×3 (02:30→17:48)
[2016-09-29] MEDS: NACL 0.9% 1000 ML 1,000 ML IV SCH (05:14)
[2016-09-29] MEDS: APRESOLINE PO SCH ×3 (05:15→22:37)
[2016-09-29] MEDS: PROTONIX FEEDTUBE SCH (09:41)
[2016-09-29] MEDS: QUESTRAN PO SCH ×2 (09:42→22:38)
[2016-09-29] MEDS: DULCOLAX PR SCH (09:42)
[2016-09-29] MEDS: ZOLOFT PO SCH (09:42)
[2016-09-29] MEDS ORDERED: PANCREAZE DR 10,500 UNIT FEEDTUBE PRN (10:05)
[2016-09-29] MEDS ORDERED: SODIUM BICARBONATE FEEDTUBE PRN (10:05)
[2016-09-29] MEDS ORDERED: SIMPLE SYRUP FEEDTUBE PRN ×2 (10:05)
--- NOTE | 2016-09-29 10:55 | Gastroenterology Progress Note ---
Assessment and Plan 1.GI bleed 2.BRBPR 3.chronic A-fib on xarelto 4.sepsis 2/2 c-diff colitis -HGB pending for today -continue to monitor H&H and transfuse as needed -no active signs of bleeding overnight or this am per nursing -pt currently hemodynamically stable -s/p colonoscopy yesterday revealed moderately severe colitis in the sigmoid with other patchy small ulcers throughout the colon-given focal nature of ulcers -possible ischemia with possible secondary colonization of c-diff -bxs-pending -Xarelto on hold til tomorrow and ASA on hold til Tuesday -maintain adequate blood pressure with avoidance of hypotension -continue tx for c-diff and avoid unnecessary antibiotics -will follow Subjective Date of service: 09/29/16 Principal diagnosis: GI bleed Interval history: Patient resting in bed, No acute distress. No signs of active bleeding overnight or this am per nursing. Objective - Constitutional Vitals: Temp Pulse Resp BP Pulse Ox 98.3 F 97 H 20 164/97 96 09/29/16 04:20 09/29/16 05:15 09/29/16 04:20 09/29/16 05:15 09/29/16 04:20 General appearance: no acute distress, other (awake, nonverbal) - EENT Eyes: PERRL, EOM intact - Respiratory Respiratory: bilateral: diminished - Cardiovascular Rhythm: regular Heart Sounds: Present: S1 & S2 - Gastrointestinal General gastrointestinal: Present: soft, non-distended, hypoactive bowel sounds , other (PEG tube) - Genitourinary Male Genitourinary: other (nephrostomy tube) - Integumentary Integumentary: Present: warm, dry - Psychiatric Psychiatric: cooperative - Labs CBC & Chem 7: 09/28/16 07:31 09/28/16 07:31 Labs: Laboratory Results - last 24 hr 09/27/16 09/28/16 09/28/16 22:48 12:24 22:02 POC Glucose 75 100 88
--- NOTE | 2016-09-29 10:56 | Progress Note ---
Assessment and Plan Sepsis C.diff colitis Sigmoid ulcer Metabolic acidosis Anemia Chronic atrial fibrillation on xarelto for oral anticoagulation. Currently on hold per GI coreg and amiodarone discontinued d/t slow ventricular response. diltiazem dose reduced Hypertension Prior CVA DM Hx of DCMP now resolved, EF 60-65% on echo this admission Acute on chronic renal disease Hx of obstructive uropathy s/p nephrostomy tube Recommendations: Continue diltiazem for rate control of atrial fibrillation. Conservative cardiac management. Subjective Date of service: 09/29/16 Principal diagnosis: darryl Interval history: Patient is resting in bed comfortably. No reported cardiac events overnight. Objective Vital Signs Temp Pulse Resp BP Pulse Ox 09/29/16 05:15 97 H 164/97 09/29/16 04:20 98.3 F 97 H 20 167/94 96 09/29/16 00:50 100 H 160/90 09/29/16 00:15 98.9 F 90 20 155/87 98 09/28/16 22:15 104 H 165/97 09/28/16 20:30 99.4 F 104 H 20 165/97 99 09/28/16 19:10 96 H 146/92 09/28/16 18:25 101 H 14 118/68 100 09/28/16 18:15 102 H 14 105/66 100 09/28/16 18:00 101 H 14 102/63 100 09/28/16 17:49 98.3 F 101 H 14 91/52 100 09/28/16 14:43 98.3 F 100 H 14 159/89 99 09/28/16 14:39 98.3 F 100 H 14 159/89 99 09/28/16 12:25 98.9 F 95 H 16 161/100 - Physical Examination General: No Apparent Distress Cardiac: Positive: irregularly irregular
--- NOTE | 2016-09-29 11:15 | Progress Note ---
Assessment and Plan Assessment and plan: Patient is 61-year-old male from [facility] with a history of hypertension, A. 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 difficile colitis. Sepsis due to C. difficile colitis - continue treatment with Flagyl. ID Physician following. I discussed case with her Acute on CKD. Due to ATN. Now resolved. Creatine 1.2 Obstructive uropathy with right nephrostomy tube with pyuria - culture growing GNR, staph aureus. GNS, but WBC trending down on Flagyl alone. ID Physician following. Nephrostomy tube recommended to be exchanged every 10 weeks. Interventional radiologist recommend consulting Urologist. Consulted Dr. Hendrickson. He was evaluated patient and will do ESWL procedure tomorrow. Hold Aspirin and xarelto. Bloody stools. He was evaluated by GI physician. For colonoscopy. Will continue to monitor H/H Q 8hrs Atrial fib - rate controlled on Cardizem. Xarelto for anticoagulation, now on hold because of bleeding and jacqueline anticipated Urology procedure tomorrow. Diabetes mellitus type 2- insulin/SSI Recent CVA with residual left hemiparesis and aphasia, status post PEG placement . Malnutrition Anemia - anemia of CKD, chronic inflamation; monitor H&H. Hemoglobin 8.6 today DVT prophylaxis - SCDs. Xarelto on hold. History Interval history: patient had bright red bloody stools and had colonoscopy yesterday Hospitalist Physical - Physical exam Narrative exam: Gen appearance: Not in acute distress HEENT: normocephalic, atraumatic Neck: supple, no JVD, IRAM Lungs: Clear to auscultation bilaterally, no crackles or wheezes Heart :S1 and S2 regular, no murmurs, rubs or gallop Abdomen: Soft, Non tender, non distended, bowel sounds present, nephrostomy tube right Extremities :no edema, no clubbing or cyanosis Neuro: Awake,alert,non verbal - Constitutional Vitals: Temp Pulse Resp BP Pulse Ox 98.3 F 97 H 20 164/97 96 09/29/16 04:20 09/29/16 05:15 09/29/16 04:20 09/29/16 05:15 09/29/16 04:20 General appearance: Present: no acute distress Results - Labs CBC & Chem 7: 09/29/16 10:57 09/28/16 07:31 Labs: Laboratory Last Values WBC 7.6 K/mm3 (4.5-11.0) 09/28/16 07:31 RBC 3.89 M/mm3 (3.65-5.03) 09/28/16 07:31 Hgb 8.9 gm/dl (11.8-15.2) L 09/28/16 07:31 Hct 28.2 % (35.5-45.6) L 09/28/16 07:31 MCV 72 fl (84-94) L 09/28/16 07:31 MCH 23 pg (28-32) L 09/28/16 07:31 MCHC 32 % (32-34) 09/28/16 07:31 RDW 26.2 % (13.2-15.2) H 09/28/16 07:31 Plt Count 264 K/mm3 (140-440) 09/28/16 07:31 Add Manual Diff Complete 09/28/16 07:31 Total Counted 100 09/28/16 07:31 Seg Neuts % (Manual) 68.0 % (40.0-70.0) 09/28/16 07:31 Band Neutrophils % 3.0 % 09/28/16 07:31 Lymphocytes % (Manual) 10.0 % (13.4-35.0) L 09/28/16 07:31 Reactive Lymphs % (Man) 0 % 09/28/16 07:31 Monocytes % (Manual) 18.0 % (0.0-7.3) H 09/28/16 07:31 Eosinophils % (Manual) 1.0 % (0.0-4.3) 09/28/16 07:31 Basophils % (Manual) 0 % (0.0-1.8) 09/28/16 07:31 Metamyelocytes % 0 % 09/28/16 07:31 Myelocytes % 0 % 09/28/16 07:31 Promyelocytes % 0 % 09/28/16 07:31 Blast Cells % 0 % 09/28/16 07:31 Nucleated RBC % Not Reportable 09/28/16 07:31 Seg Neutrophils # Man 5.2 K/mm3 (1.8-7.7) 09/28/16 07:31 Band Neutrophils # 0.2 K/mm3 09/28/16 07:31 Lymphocytes # (Manual) 0.8 K/mm3 (1.2-5.4) L 09/28/16 07:31 Abs React Lymphs (Man) 0.0 K/mm3 09/28/16 07:31 Monocytes # (Manual) 1.4 K/mm3 (0.0-0.8) H 09/28/16 07:31 Eosinophils # (Manual) 0.1 K/mm3 (0.0-0.4) 09/28/16 07:31 Basophils # (Manual) 0.0 K/mm3 (0.0-0.1) 09/28/16 07:31 Metamyelocytes # 0.0 K/mm3 09/28/16 07:31 Myelocytes # 0.0 K/mm3 09/28/16 07:31 Promyelocytes # 0.0 K/mm3 09/28/16 07:31 Blast Cells # 0.0 K/mm3 09/28/16 07:31 WBC Morphology Not Reportable 09/28/16 07:31 Hypersegmented Neuts Not Reportable 09/28/16 07:31 Hyposegmented Neuts Not Reportable 09/28/16 07:31 Hypogranular Neuts Not Reportable 09/28/16 07:31 Smudge Cells Not Reportable 09/28/16 07:31 Toxic Granulation Not Reportable 09/28/16 07:31 Toxic Vacuolation Not Reportable 09/28/16 07:31 Dohle Bodies Not Reportable 09/28/16 07:31 Pelger-Huet Anomaly Not Reportable 09/28/16 07:31 [place] Rods Not Reportable 09/28/16 07:31 Platelet Estimate Not Reportable 09/28/16 07:31 Clumped Platelets Not Reportable 09/28/16 07:31 Plt Clumps, EDTA Not Reportable 09/28/16 07:31 Large Platelets Not Reportable 09/28/16 07:31 Giant Platelets Not Reportable 09/28/16 07:31 Platelet Satelliting Not Reportable 09/28/16 07:31 Plt Morphology Comment Not Reportable 09/28/16 07:31 RBC Morphology Not Reportable 09/28/16 07:31 Dimorphic RBCs Not Reportable 09/28/16 07:31 Polychromasia Not Reportable 09/28/16 07:31 Hypochromasia 1+ 09/28/16 07:31 Poikilocytosis Not Reportable 09/28/16 07:31 Anisocytosis 2+ 09/28/16 07:31 Microcytosis Not Reportable 09/28/16 07:31 Macrocytosis Not Reportable 09/28/16 07:31 Spherocytes Not Reportable 09/28/16 07:31 Pappenheimer Bodies Not Reportable 09/28/16 07:31 Sickle Cells Not Reportable 09/28/16 07:31 Target Cells Not Reportable 09/28/16 07:31 Tear Drop Cells Not Reportable 09/28/16 07:31 Ovalocytes Not Reportable 09/28/16 07:31 Helmet Cells Not Reportable 09/28/16 07:31 [place] Bodies Not Reportable 09/28/16 07:31 [place] Rings Not Reportable 09/28/16 07:31 [place] Cells Not Reportable 09/28/16 07:31 Bite Cells Not Reportable 09/28/16 07:31 Crenated Cell Not Reportable 09/28/16 07:31 Elliptocytes Not Reportable 09/28/16 07:31 Acanthocytes (Spur) Not Reportable 09/28/16 07:31 Rouleaux Not Reportable 09/28/16 07:31 Hemoglobin C Crystals Not Reportable 09/28/16 07:31 Schistocytes Not Reportable 09/28/16 07:31 Malaria parasites Not Reportable 09/28/16 07:31 [place] Bodies Not Reportable 09/28/16 07:31 Hem Pathologist Commnt No 09/28/16 07:31 PT 15.1 Sec. (12.2-14.9) H 09/28/16 07:31 INR 1.13 (0.87-1.13) 09/28/16 07:31 APTT 30.1 Sec. (24.2-36.6) 09/20/16 23:49 Sodium 138 mmol/L (137-145) 09/28/16 07:31 Potassium 4.5 mmol/L (3.6-5.0) 09/28/16 07:31 Chloride 96.6 mmol/L (98-107) L 09/28/16 07:31 Carbon Dioxide 30 mmol/L (22-30) 09/28/16 07:31 Anion Gap 16 mmol/L 09/28/16 07:31 BUN 24 mg/dL (9-20) H 09/28/16 07:31 Creatinine 1.2 mg/dL (0.8-1.5) 09/28/16 07:31 Estimated GFR > 60 ml/min 09/28/16 07:31 BUN/Creatinine Ratio 20.00 % 09/28/16 07:31 Glucose 87 mg/dL (75-100) 09/28/16 07:31 POC Glucose 88 (70-105) 09/28/16 22:02 Lactic Acid 0.90 mmol/L (0.7-2.0) 09/21/16 01:03 Calcium 8.0 mg/dL (8.4-10.2) L 09/28/16 07:31 Magnesium 2.70 mg/dL (1.7-2.3) H 09/23/16 12:09 Total Bilirubin 0.20 mg/dL (0.1-1.2) 09/20/16 23:42 AST 13 units/L (5-40) 09/20/16 23:42 ALT 13 units/L (7-56) 09/20/16 23:42 Alkaline Phosphatase 73 units/L (35-129) 09/20/16 23:42 Total Creatine Kinase 53 units/L (55-170) L 09/21/16 11:23 CK-MB (CK-2) 1.7 ng/mL (0.0-4.0) 09/21/16 11:23 CK-MB (CK-2) Rel Index 3.2 (0-4) 09/21/16 11:23 Troponin T 0.033 ng/mL (0.00-0.029) H 09/21/16 11:23 NT-Pro-B Natriuret Pep 2195 pg/mL (0-900) H 09/20/16 23:42 Total Protein 7.4 g/dL (6.3-8.2) 09/20/16 23:42 Albumin 2.7 g/dL (3.9-5) L 09/20/16 23:42 Albumin/Globulin Ratio 0.6 % 09/20/16 23:42 Triglycerides 164 mg/dL (2-149) H 09/20/16 23:42 Cholesterol 95 mg/dL (50-199) 09/20/16 23:42 LDL Cholesterol Direct 43 mg/dL (50-130) L 09/20/16 23:42 HDL Cholesterol 20 mg/dL (40-59) L 09/20/16 23:42 Cholesterol/HDL Ratio 4.75 % 09/20/16 23:42 Urine Color Yellow (Yellow) 09/21/16 17:12 Urine Turbidity Clear (Clear) 09/21/16 17:12 Urine pH 6.0 (5.0-7.0) 09/21/16 17:12 Ur Specific [place] 1.016 (1.003-1.030) 09/21/16 17:12 Urine Protein 30 mg/dl mg/dL (Negative) 09/21/16 17:12 Urine Glucose (UA) Neg mg/dL (Negative) 09/21/16 17:12 Urine Ketones Neg mg/dL (Negative) 09/21/16 17:12 Urine Blood Neg (Negative) 09/21/16 17:12 Urine Nitrite Neg (Negative) 09/21/16 17:12 Urine Bilirubin Neg (Negative) 09/21/16 17:12 Urine Urobilinogen < 2.0 mg/dL (<2.0) 09/21/16 17:12 Ur Leukocyte Esterase Tr (Negative) 09/21/16 17:12 Urine WBC (Auto) 6.0 /HPF (0.0-6.0) 09/21/16 17:12 Urine RBC (Auto) 1.0 /HPF (0.0-6.0) 09/21/16 17:12 U Epithel Cells (Auto) < 1.0 /HPF (0-13.0) 09/21/16 17:12 Urine Bacteria (Auto) 2+ /HPF (Negative) 09/21/16 17:12 Urine Mucus Few /HPF 09/21/16 17:12 Urine Eosinophils None seen (None Seen) 09/21/16 17:12
[2016-09-29 11:19] LABS: Hematocrit 27.3 % (35.5-45.6); Hemoglobin 8.6 gm/dl (11.8-15.2)
--- NOTE | 2016-09-29 15:08 | Progress Note ---
Assessment and Plan Assessment: 1) Sepsis: resolved. Etiology - secondary to acute C diff colitis. 2) Acute C diff colitis- moderate: improving 3) Right obstructive uropathy: S/P nephrostomy tube / stents with purulence this admission, likely due to a track abscess. -UA negative on admission. -US kidney showed no kidney stones, no hydronephrosis. -Right NT cultures growing MRSA, Pseudomonas and PURCHASING ASSOCIATE ? colonizers. -CT shows proximal right ureteral stone -S/P NT exchange on 09/24 4) Acute on CKD - resolved 5) Recent CVA with left hemiparesia and aphasia 6) A fib 7) Anemia 8) GI bleed - colonoscopy prelim ? C diff with ischemia Plan: -continue metronidazole, day 9 of 10 -f/u colon biopsy -NT exchange every 10 weeks per [facility] records -avoid broad-spectrum antibiotics as possible -upon discharge continue metronidazole 500 mg PO q 8 hours for total 10 days from 09/21 until 09/30/[address] Keating for your consultation, will f/u with you Agnes Rodriguez MD Infectious Diseases Specialist [facility] ([facility] M [phone] O [phone] Subjective Date of service: 09/29/16 Principal diagnosis: GI bleed Interval history: No complaints. Non verbal. +diarrhea. Microbiology: Blood cultures: 09/21 ngdt Stool C diff 09/21 positive Nephrostomy tube culture + MRSA, PURCHASING ASSOCIATE and GNR Current Antibiotics: 09/21 Metronidazole Previous antibiotics: 09/21 Vancomycin IV x 1 Objective - Constitutional Vitals: Vital Signs Temp Pulse Resp BP Pulse Ox 98.3 F 97 H 20 164/97 96 09/29/16 04:20 09/29/16 05:15 09/29/16 04:20 09/29/16 05:15 09/29/16 04:20 Temperature -Last 24 Hours Temperature 98.3 F Temperature 98.9 F Temperature 99.4 F Temperature 98.3 F - Labs CBC & Chem 7: 09/29/16 10:57 09/28/16 07:31 Labs: Abnormal lab results 09/29/16 09/29/16 09/29/16 Range/Units 06:21 10:57 12:18 Hgb 8.6 L (11.8-15.2) gm/dl Hct 27.3 L (35.5-45.6) % POC Glucose 112 H 118 H (70-105)
[2016-09-30] MEDS: CARDIZEM PO SCH ×4 (00:30→18:00)
[2016-09-30] MEDS: FLAGYL FEEDTUBE SCH ×3 (01:00→17:59)
[2016-09-30] MEDS: NOVOLOG SUB-Q SCH ×4 (01:07→17:50)
[2016-09-30] MEDS: APRESOLINE PO SCH ×2 (06:39→15:12)
--- NOTE | 2016-09-30 09:30 | Fluoroscopy Report ---
MODIFIED BARIUM SWALLOW History: Dysphagia. Findings: Videofluoroscopy was provided by the radiologist for speech therapy to assess the swallowing mechanism. Please refer to the formal report by speech therapy. Impression: Successful modified barium swallow.
--- NOTE | 2016-09-30 09:45 | Progress Note ---
Hospitalist Physical - Constitutional Vitals: Temp Pulse Resp BP Pulse Ox 98.8 F 96 H 20 161/96 99 09/30/16 00:00 09/30/16 06:40 09/30/16 00:00 09/30/16 06:40 09/29/16 20:00 General appearance: Present: no acute distress Results - Labs CBC & Chem 7: 09/29/16 10:57 09/28/16 07:31 Labs: Laboratory Last Values WBC 7.6 K/mm3 (4.5-11.0) 09/28/16 07:31 RBC 3.89 M/mm3 (3.65-5.03) 09/28/16 07:31 Hgb 8.6 gm/dl (11.8-15.2) L 09/29/16 10:57 Hct 27.3 % (35.5-45.6) L 09/29/16 10:57 MCV 72 fl (84-94) L 09/28/16 07:31 MCH 23 pg (28-32) L 09/28/16 07:31 MCHC 32 % (32-34) 09/28/16 07:31 RDW 26.2 % (13.2-15.2) H 09/28/16 07:31 Plt Count 264 K/mm3 (140-440) 09/28/16 07:31 Add Manual Diff Complete 09/28/16 07:31 Total Counted 100 09/28/16 07:31 Seg Neuts % (Manual) 68.0 % (40.0-70.0) 09/28/16 07:31 Band Neutrophils % 3.0 % 09/28/16 07:31 Lymphocytes % (Manual) 10.0 % (13.4-35.0) L 09/28/16 07:31 Reactive Lymphs % (Man) 0 % 09/28/16 07:31 Monocytes % (Manual) 18.0 % (0.0-7.3) H 09/28/16 07:31 Eosinophils % (Manual) 1.0 % (0.0-4.3) 09/28/16 07:31 Basophils % (Manual) 0 % (0.0-1.8) 09/28/16 07:31 Metamyelocytes % 0 % 09/28/16 07:31 Myelocytes % 0 % 09/28/16 07:31 Promyelocytes % 0 % 09/28/16 07:31 Blast Cells % 0 % 09/28/16 07:31 Nucleated RBC % Not Reportable 09/28/16 07:31 Seg Neutrophils # Man 5.2 K/mm3 (1.8-7.7) 09/28/16 07:31 Band Neutrophils # 0.2 K/mm3 09/28/16 07:31 Lymphocytes # (Manual) 0.8 K/mm3 (1.2-5.4) L 09/28/16 07:31 Abs React Lymphs (Man) 0.0 K/mm3 09/28/16 07:31 Monocytes # (Manual) 1.4 K/mm3 (0.0-0.8) H 09/28/16 07:31 Eosinophils # (Manual) 0.1 K/mm3 (0.0-0.4) 09/28/16 07:31 Basophils # (Manual) 0.0 K/mm3 (0.0-0.1) 09/28/16 07:31 Metamyelocytes # 0.0 K/mm3 09/28/16 07:31 Myelocytes # 0.0 K/mm3 09/28/16 07:31 Promyelocytes # 0.0 K/mm3 09/28/16 07:31 Blast Cells # 0.0 K/mm3 09/28/16 07:31 WBC Morphology Not Reportable 09/28/16 07:31 Hypersegmented Neuts Not Reportable 09/28/16 07:31 Hyposegmented Neuts Not Reportable 09/28/16 07:31 Hypogranular Neuts Not Reportable 09/28/16 07:31 Smudge Cells Not Reportable 09/28/16 07:31 Toxic Granulation Not Reportable 09/28/16 07:31 Toxic Vacuolation Not Reportable 09/28/16 07:31 Dohle Bodies Not Reportable 09/28/16 07:31 Pelger-Huet Anomaly Not Reportable 09/28/16 07:31 [place] Rods Not Reportable 09/28/16 07:31 Platelet Estimate Not Reportable 09/28/16 07:31 Clumped Platelets Not Reportable 09/28/16 07:31 Plt Clumps, EDTA Not Reportable 09/28/16 07:31 Large Platelets Not Reportable 09/28/16 07:31 Giant Platelets Not Reportable 09/28/16 07:31 Platelet Satelliting Not Reportable 09/28/16 07:31 Plt Morphology Comment Not Reportable 09/28/16 07:31 RBC Morphology Not Reportable 09/28/16 07:31 Dimorphic RBCs Not Reportable 09/28/16 07:31 Polychromasia Not Reportable 09/28/16 07:31 Hypochromasia 1+ 09/28/16 07:31 Poikilocytosis Not Reportable 09/28/16 07:31 Anisocytosis 2+ 09/28/16 07:31 Microcytosis Not Reportable 09/28/16 07:31 Macrocytosis Not Reportable 09/28/16 07:31 Spherocytes Not Reportable 09/28/16 07:31 Pappenheimer Bodies Not Reportable 09/28/16 07:31 Sickle Cells Not Reportable 09/28/16 07:31 Target Cells Not Reportable 09/28/16 07:31 Tear Drop Cells Not Reportable 09/28/16 07:31 Ovalocytes Not Reportable 09/28/16 07:31 Helmet Cells Not Reportable 09/28/16 07:31 [place] Bodies Not Reportable 09/28/16 07:31 [place] Rings Not Reportable 09/28/16 07:31 [place] Cells Not Reportable 09/28/16 07:31 Bite Cells Not Reportable 09/28/16 07:31 Crenated Cell Not Reportable 09/28/16 07:31 Elliptocytes Not Reportable 09/28/16 07:31 Acanthocytes (Spur) Not Reportable 09/28/16 07:31 Rouleaux Not Reportable 09/28/16 07:31 Hemoglobin C Crystals Not Reportable 09/28/16 07:31 Schistocytes Not Reportable 09/28/16 07:31 Malaria parasites Not Reportable 09/28/16 07:31 Arcenio Bodies Not Reportable 09/28/16 07:31 Hem Pathologist Commnt No 09/28/16 07:31 PT 15.1 Sec. (12.2-14.9) H 09/28/16 07:31 INR 1.13 (0.87-1.13) 09/28/16 07:31 APTT 30.1 Sec. (24.2-36.6) 09/20/16 23:49 Sodium 138 mmol/L (137-145) 09/28/16 07:31 Potassium 4.5 mmol/L (3.6-5.0) 09/28/16 07:31 Chloride 96.6 mmol/L (98-107) L 09/28/16 07:31 Carbon Dioxide 30 mmol/L (22-30) 09/28/16 07:31 Anion Gap 16 mmol/L 09/28/16 07:31 BUN 24 mg/dL (9-20) H 09/28/16 07:31 Creatinine 1.2 mg/dL (0.8-1.5) 09/28/16 07:31 Estimated GFR > 60 ml/min 09/28/16 07:31 BUN/Creatinine Ratio 20.00 % 09/28/16 07:31 Glucose 87 mg/dL (75-100) 09/28/16 07:31 POC Glucose 93 (70-105) 09/30/16 06:34 Lactic Acid 0.90 mmol/L (0.7-2.0) 09/21/16 01:03 Calcium 8.0 mg/dL (8.4-10.2) L 09/28/16 07:31 Magnesium 2.70 mg/dL (1.7-2.3) H 09/23/16 12:09 Total Bilirubin 0.20 mg/dL (0.1-1.2) 09/20/16 23:42 AST 13 units/L (5-40) 09/20/16 23:42 ALT 13 units/L (7-56) 09/20/16 23:42 Alkaline Phosphatase 73 units/L (35-129) 09/20/16 23:42 Total Creatine Kinase 53 units/L (55-170) L 09/21/16 11:23 CK-MB (CK-2) 1.7 ng/mL (0.0-4.0) 09/21/16 11:23 CK-MB (CK-2) Rel Index 3.2 (0-4) 09/21/16 11:23 Troponin T 0.033 ng/mL (0.00-0.029) H 09/21/16 11:23 NT-Pro-B Natriuret Pep 2195 pg/mL (0-900) H 09/20/16 23:42 Total Protein 7.4 g/dL (6.3-8.2) 09/20/16 23:42 Albumin 2.7 g/dL (3.9-5) L 09/20/16 23:42 Albumin/Globulin Ratio 0.6 % 09/20/16 23:42 Triglycerides 164 mg/dL (2-149) H 09/20/16 23:42 Cholesterol 95 mg/dL (50-199) 09/20/16 23:42 LDL Cholesterol Direct 43 mg/dL (50-130) L 09/20/16 23:42 HDL Cholesterol 20 mg/dL (40-59) L 09/20/16 23:42 Cholesterol/HDL Ratio 4.75 % 09/20/16 23:42 Urine Color Yellow (Yellow) 09/21/16 17:12 Urine Turbidity Clear (Clear) 09/21/16 17:12 Urine pH 6.0 (5.0-7.0) 09/21/16 17:12 Ur Specific [place] 1.016 (1.003-1.030) 09/21/16 17:12 Urine Protein 30 mg/dl mg/dL (Negative) 09/21/16 17:12 Urine Glucose (UA) Neg mg/dL (Negative) 09/21/16 17:12 Urine Ketones Neg mg/dL (Negative) 09/21/16 17:12 Urine Blood Neg (Negative) 09/21/16 17:12 Urine Nitrite Neg (Negative) 09/21/16 17:12 Urine Bilirubin Neg (Negative) 09/21/16 17:12 Urine Urobilinogen < 2.0 mg/dL (<2.0) 09/21/16 17:12 Ur Leukocyte Esterase Tr (Negative) 09/21/16 17:12 Urine WBC (Auto) 6.0 /HPF (0.0-6.0) 09/21/16 17:12 Urine RBC (Auto) 1.0 /HPF (0.0-6.0) 09/21/16 17:12 U Epithel Cells (Auto) < 1.0 /HPF (0-13.0) 09/21/16 17:12 Urine Bacteria (Auto) 2+ /HPF (Negative) 09/21/16 17:12 Urine Mucus Few /HPF 09/21/16 17:12 Urine Eosinophils None seen (None Seen) 09/21/16 17:12
[2016-09-30] MEDS ORDERED: XARELTO PO SCH (10:00)
[2016-09-30] MEDS: PROTONIX FEEDTUBE SCH (10:45)
[2016-09-30] MEDS: ZOLOFT PO SCH (10:46)
[2016-09-30] MEDS: DULCOLAX PR SCH (10:47)
[2016-09-30] MEDS: QUESTRAN PO SCH (11:11)
--- NOTE | 2016-09-30 11:29 | Progress Note ---
Assessment and Plan Sepsis C.diff colitis Sigmoid ulcer Metabolic acidosis Anemia Chronic atrial fibrillation on xarelto for oral anticoagulation. Currently on hold as per GI. coreg and amiodarone discontinued d/t slow ventricular response. diltiazem dose reduced Hypertension Prior CVA DM Hx of DCMP now resolved, EF 60-65% on echo this admission Acute on chronic renal disease Hx of obstructive uropathy s/p nephrostomy tube Recommendations: Continue diltiazem for rate control of atrial fibrillation. Conservative cardiac management. Subjective Date of service: 09/30/16 Principal diagnosis: GI bleed Interval history: Patient is non-verbal but resting in bed comfortably. No reported cardiac events overnight. Objective Vital Signs Temp Pulse Resp BP Pulse Ox 09/30/16 08:00 98.5 F 78 18 148/88 98 09/30/16 06:40 96 H 161/96 09/30/16 06:39 96 H 161/96 09/30/16 00:30 80 148/88 09/30/16 00:00 98.8 F 80 20 148/88 09/29/16 20:00 99.2 F 84 20 162/92 99 09/29/16 15:25 98.5 F 84 20 183/91 100 09/29/16 12:45 98.6 F 91 H 16 148/93 - Physical Examination General: No Apparent Distress Cardiac: Positive: irregularly irregular
--- NOTE | 2016-09-30 12:00 | Gastroenterology Progress Note ---
<MICHAELA HUNTER - Last Filed: 09/30/16 12:03> Assessment and Plan 1.GI bleed 2.BRBPR 3.chronic A-fib 4.sepsis 2/2 c-diff colitis-resolved -HGB 8.6-stable -continue to monitor H&H and transfuse as needed -no active signs of bleeding overnight or this am per nursing -s/p colonoscopy 09/28/16 revealed moderately severe colitis in the sigmoid with other patchy small ulcers throughout the colon-given focal nature of ulcers -possible ischemia with possible secondary colonization of c-diff -bxs-pending -Xarelto started back today and ASA on hold til Tuesday -maintain adequate blood pressure with avoidance of hypotension -continue tx for c-diff and avoid unnecessary antibiotics -will follow Subjective Date of service: 09/30/16 Principal diagnosis: GI bleed Interval history: Patient resting in bed, No acute distress. No signs of active bleeding overnight or this am per nursing. Objective - Constitutional Vitals: Temp Pulse Resp BP Pulse Ox 98.5 F 78 18 148/88 98 09/30/16 08:00 09/30/16 08:00 09/30/16 08:00 09/30/16 08:00 09/30/16 08:00 General appearance: no acute distress, other (awake, nonverbal) - EENT Eyes: PERRL, EOM intact ENT: hearing intact - Respiratory Respiratory: bilateral: diminished - Cardiovascular Rhythm: regular Heart Sounds: Present: S1 & S2 - Extremities Extremities: No edema - Gastrointestinal General gastrointestinal: Present: soft, non-distended, normal bowel sounds, other (PEG) - Genitourinary Male Genitourinary: other (nephrostomy tube) - Labs CBC & Chem 7: 09/29/16 10:57 09/28/16 07:31 Labs: Laboratory Results - last 24 hr 09/28/16 09/29/16 09/29/16 19:10 06:21 12:18 POC Glucose 76 112 H 118 H 09/29/16 09/30/16 09/30/16 16:05 00:13 06:34 POC Glucose 102 97 93 <SORAIDA MONGE - Last Filed: 09/30/16 17:43> Objective - Constitutional Vitals: Temp Pulse Resp BP Pulse Ox 98.7 F 95 H 18 160/80 100 09/30/16 11:00 09/30/16 11:00 09/30/16 11:00 09/30/16 11:00 09/30/16 11:00 - Labs CBC & Chem 7: 09/29/16 10:57 09/28/16 07:31 Labs: Laboratory Results - last 24 hr 09/29/16 09/30/16 09/30/16 16:05 00:13 06:34 POC Glucose 102 97 93
[2016-09-30] MEDS ORDERED: APRESOLINE PO SCH (15:07)
--- NOTE | 2016-09-30 15:46 | Discharge Summary ---
Providers - Providers Date of Admission: 09/21/16 03:45 Date of discharge: 09/30/16 Attending physician: ARGELIA COSME 09/21/16 13:12 Consult to Physician [CONS] Routine Consulting Provider: JAGDISH FREEDMAN Reason For Exam: ARF, ?ESRD Place consult to:: Bayron MOSHER Notified:: OFFICE Phone number called:: [phone] Was contact made?: Yes If yes, spoke with:: VINAY Franklin called:: 14:14 Comment:: CAMILA NOTIFIED 09/21/16 14:13 Speech Therapy Evaluation and Treat [CONS] Routine Reason For Exam: swallow evaluation, h/o peg 09/21/16 15:39 Consult to Wound/ET Nurse [CONS] Urgent Reason For Exam: sacral fold shafting 09/22/16 12:24 Consult to Dietitian/Nutrition [CONS] Routine Physician Instructions: Reason For Exam: Reason for Consult: Write/Manage Tube Feeding 09/22/16 14:47 Consult to Physician [CONS] Routine Consulting Provider: CHRISTIAN GURROLA Reason For Exam: Pyuria and c.diffe Place consult to:: Mac MOSHER Notified:: office Phone number called:: [phone] Was contact made?: Yes If yes, spoke with:: zuri Time called:: 16:13 09/22/16 19:17 Consult to Physician [CONS] Routine Consulting Provider: DANYA MULLINS Reason For Exam: Afib , HR in the 40's Place consult to:: [facility] Notified:: Renetta Phone number called:: [phone] 09/27/16 10:37 Consult to Physician [CONS] Routine Consulting Provider: DARYL BRODY Reason For Exam: Bright red blood per rectum Place consult to:: dr. brody Notified:: office Phone number called:: Was contact made?: Yes If yes, spoke with:: jody Time called:: 11:00 09/27/16 13:23 Consult to Physician [CONS] Routine Consulting Provider: LEONEL HENDRICKSON Reason For Exam: right ureteral calculi,stent in place Place consult to:: yes Notified:: yes Comment:: spoke to ,states will call consult to Primary care physician: REGINA BALLESTEROS Hospitalization Condition: Fair Disposition: [id number]/[place]-03 [facility] - Discharge Diagnoses (1) Sepsis Status: Acute Qualifiers: Sepsis type: S (2) C. 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: D Laterality: L Chronic kidney disease stage: C (4) Atrial fibrillation Status: Chronic Qualifiers: Atrial fibrillation type: paroxysmal Qualified Code(s): I48.0 - Paroxysmal atrial fibrillation (5) History of stroke Status: Acute (6) Obstructive uropathy Status: Acute (7) Acute GI bleeding Status: Acute (8) KATHARINE (acute kidney injury) Status: Acute (9) ATN (acute tubular necrosis) Status: Acute (10) Anemia due to acute blood loss Status: Acute Core Measure Documentation - Palliative Care Palliative Care/ Comfort Measures: Not Applicable - Core Measures Any of the following diagnoses?: none Exam - Physical Exam Narrative exam: Gen appearance: Not in acute distress HEENT: normocephalic, atraumatic Neck: supple, no JVD, IRAM Lungs: Clear to auscultation bilaterally, no crackles or wheezes Heart :S1 and S2 regular, no murmurs, rubs or gallop Abdomen: Soft, Non tender, non distended, bowel sounds present, nephrostomy tube right Extremities :no edema, no clubbing or cyanosis Neuro: Awake,alert,non verbal - Constitutional Vitals: Temp Pulse Resp BP Pulse Ox 98.7 F 95 H 18 160/80 100 09/30/16 11:00 09/30/16 11:00 09/30/16 11:00 09/30/16 11:00 09/30/16 11:00 Plan Activity: advance as tolerated Diet: other (Tube feeding) Additional Instructions: 1.Follow up with Physician at SNF in 3-5 days. 2.Follow up with Dr. Hendrickson, Urology in 5-7 days. 3.Follow up with Dr. Eubanks in 1-2 weeks. 4.Follow up with Dr. David in 2 weeks. 5.Resume Aspirin 81mg daily on tuesday10/02/16. 6.Resume Xarelto on Follow up with: REGINA BALLESTEROS MD [Primary Care Provider] - 3-5 Days Prescriptions: Aspirin 81 mg PO DAILY #30 tab.chew Diltiazem [Cardizem] 30 mg PO Q6HR #120 tablet
[2016-09-30 18:07] VITALS: BP 155/86
[2016-10-01] MEDS ORDERED: BABY ASPIRIN PO SCH (10:00)
[2016-10-01] MEDS ORDERED: XARELTO PO SCH (10:00)
== END 2016-09-30 19:15 | DRG 871 ==
LOC: ED 22:39 → 3A 09-21 03:45 → EEVIPCON 09-21 03:45
PROVIDERS: ADMIT Internal Medicine; ATTEND Internal Medicine
PROC: 0T25X0Z Change Drainage Device in Kidney, External Approach (ICD-10-PCS; principal; 2016-09-24)
PROC: BT111ZZ Fluoroscopy of Right Kidney using Low Osmolar Contrast (ICD-10-PCS; 2016-09-24)
PROC: 0DBN8ZX Excision of Sigmoid Colon, Via Natural or Artificial Opening Endoscopic, Diagnostic (ICD-10-PCS; 2016-09-28)
DX: A41.50 Gram-negative sepsis, unspecified (principal); N17.0 Acute kidney failure with tubular necrosis; F39 Unspecified mood [affective] disorder; N13.9 Obstructive and reflux uropathy, unspecified; A04.7 Enterocolitis due to Clostridium difficile; E87.0 Hyperosmolality and hypernatremia; E46 Unspecified protein-calorie malnutrition; E11.22 Type 2 diabetes mellitus with diabetic chronic kidney disease; I12.9 Hypertensive chronic kidney disease with stage 1 through stage 4 chronic kidney disease, or unspecified chronic kidney disease; N18.3 Chronic kidney disease, stage 3 (moderate); I48.2 Chronic atrial fibrillation; I42.0 Dilated cardiomyopathy; N13.30 Unspecified hydronephrosis; D63.1 Anemia in chronic kidney disease; K92.2 Gastrointestinal hemorrhage, unspecified; Z68.25 Body mass index [BMI] 25.0-25.9, adult; Z74.01 Bed confinement status; Z93.1 Gastrostomy status; Z93.6 Other artificial openings of urinary tract status; I69.854 Hemiplegia and hemiparesis following other cerebrovascular disease affecting left non-dominant side; I69.820 Aphasia following other cerebrovascular disease
CPT/HCPCS: 36415; 50435; 71010; 71020; 74176; 74230; 76770; 80048; 80053; 80061; 81001; 82140; 82270; 82550; 82553; 82962; 83735; 83880; 84484; 85007; 85014; 85018; 85025; 85027; 85610; 85730; 87040; 87076; 87086; 87186; 87493; 88305; 89050; 90732; 93005; 93010; 93306; 94640; 96365; 96366; 96368; A9270-GY; C1729; C1769; J0696; J1650; J1815; J2704; J3246; J3370; J3475; J3480; J7030; J7050; J7070; Q9967

== ENCOUNTER 2017-01-04 10:36 | Inpatient (IN) | payer MEDICAID, OTHER ==
[~2017-01-04 10:36] MED LIST: ANCEF/STERILE WATER 2 GM/20 ML 2 GM/20 ML SYRINGE IV NR; NACL 0.9% 1000 ML 1,000 ML IV SCH
[2017-01-04] MEDS ORDERED: LEVAQUIN 500MG/100ML 500 MG/100 ML BAG IV ONE (11:54)
[2017-01-04] MEDS ORDERED: NACL 0.9% 250ML 0 ML ONE (11:54)
[2017-01-04] MEDS ORDERED: VERSED ONE (11:54)
[2017-01-04] MEDS ORDERED: NACL 0.9% 500 ML IR ONE (11:55)
[2017-01-04] MEDS: XYLOCAINE 2% INFILTRATI ONE ×2 (12:40→13:08)
[2017-01-04] MEDS: SUBLIMAZE ONE ×3 (13:08→13:57)
--- NOTE | 2017-01-04 14:43 | Operative Report ---
Operative Report Operative Report: Procedure: 1. Check and removal of an indwelling right-sided nephrostomy catheter 2. Right antegrade nephrostogram 3. Placement of a 10 Welsh right nephrostomy catheter 4. Placement of a 4 Welsh sheath in the right basilic vein to serve as IV access Date of Procedure: 01/04/2017 History/Indication: 61-year-old male with an indwelling right sided nephrostomy catheter. Recently , output had appeared very dark brown, and a tube change was requested. Physician: Amarjit Brown MD Technique/Procedural Details: The patient was placed in the prone position and prepped and draped in the usual sterile fashion. A timeout was performed. Local anesthetic was administered around the indwelling nephrostomy catheter exit site. Contrast was injected into the catheter, and an image was acquired. Based on the imaging , the decision was made to remove the current catheter and place a new one. Because the patient had lost IV access inadvertently during transport, needle IV access was needed. Under ultrasound guidance, after administration of local anesthetic, a 21-gauge needle was advanced into the right basilic vein. This was exchanged over an 018 wire for a 4 Welsh sheath. Under ultrasound guidance, a 21-gauge echo tip needle was advanced into a posterolateral calyx of the right kidney. An 018 wire was inserted. Due to the extremely firm and fibrotic right kidney parenchyma, extra stability was needed, so the inner piece of a 4 Welsh micropuncture catheter was inserted, and the 018 wire was replaced with a V18. Over this wire, an Accustick system was advanced. Through the Accustick, the wire was then upsized to a O35 Glidewire. A vertebral catheter was advanced. The Glidewire was then exchanged for a Walden wire and then a superstiff Amplatz wire. After serial tissue dilation, a 10 Welsh nephrostomy catheter was advanced, and the locking Loop was formed in the right renal pelvis. Contrast was injected to confirm placement. A specimen was aspirated and sent to the lab. A drainage bag was attached, and the catheter was secured to the skin with 2 2- 0 Ethilon sutures. A postdrainage image was acquired, and sterile dressings were placed. The patient tolerated the procedure without immediate complication. Discussion: The indwelling right nephrostomy catheter the patient arrived with was found to be completely dislodged upon evaluation with contrast injection. There is severe right hydronephrosis, with complete obstruction of the proximal right ureter. No wire or catheter passage was possible beyond the proximal segment of the right ureter. Additionally, the right renal parenchyma was extremely firm and difficult to traverse with any wire or catheter. Once access to the collecting system was obtained, a large amount of ania pus was aspirated, consistent with pyonephrosis. A 10 Welsh nephrostomy catheter was successfully placed. The newly placed catheter fills and decompresses the right renal collecting system satisfactorily. I arranged to have the patient admitted to the hospital due to the aspirated pus from the collecting system. I will also discuss the case with the referring urologist. Specimen: Urine EBL: <5 cc
[2017-01-04] MEDS ORDERED: ROCEPHIN/NS 2 GM/100 ML 2 GM/100 ML BAG IV SCH (15:00)
[2017-01-04] MEDS ORDERED: cefTRIAXone 2 GM in NACL 0.9% 20 ML IV SCH (16:00)
[2017-01-04 16:28] LABS: Mean Corpuscular HGB Conc 30 % (32-34); Platelet Count 315 K/mm3 (140-440); Red Blood Count 4.72 M/mm3 (3.65-5.03); White Blood Count 5.2 K/mm3 (4.5-11.0)
[2017-01-04 16:29] LABS: Hematocrit 31.8 % (35.5-45.6); Hemoglobin 9.5 gm/dl (11.8-15.2); Mean Corpuscular Hemoglobin 20 pg (28-32); Mean Corpuscular Volume 67 fl (84-94); Red Cell Distribution Width 21.3 % (13.2-15.2)
[2017-01-04 17:00] LABS: Chloride TNR mmol/L (98-107); Sodium TNR mmol/L (137-145)
[2017-01-04 17:01] LABS: Anion Gap TNR mmol/L; Carbon Dioxide TNR mmol/L (22-30)
[2017-01-04 17:02] LABS: BUN/Creatinine Ratio TNR; Blood Urea Nitrogen TNR mg/dL (9-20); Glucose TNR mg/dL (75-100)
[2017-01-04 17:03] LABS: Alanine Aminotransferase TNR units/L (7-56); Bilirubin,Total TNR mg/dL (0.1-1.2); Calcium TNR mg/dL (8.4-10.2)
[2017-01-04 17:04] LABS: Albumin TNR g/dL (3.9-5); Albumin/Globulin Ratio TNR %; Alkaline Phosphatase TNR units/L (35-129); Total Protein TNR g/dL (6.3-8.2)
[2017-01-04 17:07] LABS: Potassium TNR mmol/L (3.6-5.0)
[2017-01-04 17:18] LABS: Basophils % (Manual) 0 % (0.0-1.8); Blastocytes % (Manual) 0 %; Eosinophils % (Manual) 0 % (0.0-4.3)
[2017-01-04 17:19] LABS: Large Platelets Few; Platelet Estimate Consistent w Auto
[2017-01-04 17:21] LABS: Anisocytosis 1+; Microcytosis 1+
[2017-01-04 17:22] LABS: Diff Status Complete
[2017-01-04 19:21] LABS: Alanine Aminotransferase 8 units/L (7-56); Albumin 2.1 g/dL (3.9-5); Albumin/Globulin Ratio 0.7 %; Alkaline Phosphatase 45 units/L (35-129); Anion Gap 20 mmol/L; BUN/Creatinine Ratio 39; Blood Urea Nitrogen 35 mg/dL (9-20); Calcium 6.9 mg/dL (8.4-10.2); Carbon Dioxide 12 mmol/L (22-30); Chloride 114.1 mmol/L (98-107); Glucose 61 mg/dL (75-100); Potassium 4.5 mmol/L (3.6-5.0); Sodium 142 mmol/L (137-145); Total Protein 5.1 g/dL (6.3-8.2)
[2017-01-04 20:24] VITALS: BP 124/69
--- NOTE | 2017-01-04 21:52 | Event Note ---
Date: 01/04/17 See Dictated H/p in reports
[2017-01-04] MEDS ORDERED: ULTRAM PO PRN (21:53)
[2017-01-04] MEDS ORDERED: NON-FORMULARY (Simvastatin 40 MG) PO SCH (22:00)
[2017-01-04] MEDS ORDERED: CARDIZEM PO SCH (22:00)
[2017-01-04] MEDS ORDERED: DULCOLAX PR SCH (22:00)
[2017-01-04] MEDS ORDERED: CHOLESTYRAMINE 378 GM PO SCH (22:00)
[2017-01-04] MEDS ORDERED: ZOLOFT PO SCH (22:00)
[2017-01-04] MEDS ORDERED: CATAPRES PO SCH (22:00)
[2017-01-04] MEDS ORDERED: [UNRECOGNIZED DRUG - OTHER] PO SCH (22:00)
[2017-01-04] MEDS ORDERED: PROTONIX PO SCH (22:00)
[2017-01-04] MEDS ORDERED: ATROVENT IH SCH (22:00)
[2017-01-04] MEDS ORDERED: D5NS 1,000 ML IV SCH (22:00)
[2017-01-04] MEDS ORDERED: GLUCOPHAGE PO SCH (22:00)
[2017-01-04] MEDS ORDERED: BABY ASPIRIN PO SCH (22:00)
[2017-01-04] MEDS ORDERED: XARELTO PO SCH (22:00)
[2017-01-04] MEDS ORDERED: TYLENOL PO PRN (22:01)
[2017-01-04] MEDS ORDERED: DILAUDID IV PRN (22:01)
[2017-01-04] MEDS ORDERED: ZOFRAN IV PRN (22:01)
[2017-01-04] MEDS ORDERED: MILK OF MAGNESIA PO PRN (22:01)
[2017-01-04] MEDS ORDERED: DULCOLAX PR PRN (22:01)
--- NOTE | 2017-01-04 22:28 | Event Note ---
I responded to floor for CODE DORA called at 21:54. Nurse states that last seen speaking without complaints approximately one hour ago. When she reentered the room patient was unresponsive, apneic, and pulseless. Upon my arrival chest compressions were in progress. Patient was then intubated and epinephrine was administered. Patient received a total of 4 epinephrine, 1 sodium bicarbonate, 1 calcium gluconate, and 1 amp of D50 in addition to supplemental oxygenation and chest compressions. Patient remained in asystole despite resuscitation efforts. Pupils fixed and dilated. Time of 22:18. Dr. Cabrera hospitalist arrived at the bedside at the completion of the code. He will notify family and other physicians involved in patient's care. - Intubation Time Out Performed: Yes Sedative: none Laryngoscope: Kamille Size: 4 ET Tube Size: 7.5 Tube Secured Depth (cm): 24 Tube Secured Location: lips Tube Placement Confirmation: visualized tube passing t, equal breath sounds bilat, no breath sounds over epi, confirmation by capnometr Patient Tolerated Procedure: well Intubation Complications: none
--- NOTE | 2017-01-05 10:21 | History and Physical Report ---
CHIEF COMPLAINT: Pyuria from the nephrostomy tube. HISTORY OF PRESENT ILLNESS: A 61-year-old female, lethargic admitted from PACU after nephrostomy tube was inserted. There was a lot of pus in the urine from the nephrostomy tube. The patient was admitted for possible sepsis secondary to severe kidney infection. The patient was initiated on IV fluids and IV antibiotics at the time of admission. No fever. The patient is a very poor historian. The patient is bit lethargic. No family member available to give history. PAST MEDICAL HISTORY: Significant for hypertension, hyperlipidemia, COPD, type 2 diabetes, gastroesophageal reflux disease, chronic pain. CURRENT MEDICATIONS: Clonidine 0.2 twice a day, cholestyramine powder 378 g twice a day, diltiazem 60 mg 4 times a day, Atrovent 0.5 q. 6 round the clock, metformin 500 mg once a day, Protonix 40 mg once a day, Xarelto 10 mg once a day, Zoloft 50 mg once a day, simvastatin 40 mg once a day, and tramadol 50 mg every 8 hours. FAMILY HISTORY: Significant for hypertension. SOCIAL HISTORY: The patient is a known smoker. No drugs. REVIEW OF SYSTEMS: The patient is lethargic. Review of systems could not be done because of the patient's lethargy. I attributed to his ongoing sepsis secondary to severe kidney infection. PHYSICAL EXAMINATION: GENERAL: Elderly male, looks older than his age, lethargic. VITAL SIGNS: Blood pressure is 142/112, respirations are 16, pulse is 66, temperature is 99. HEENT: Unremarkable. Dry mucous membranes. Pupils are equal and reactive. NECK: Supple, no lymphadenopathy, no thyromegaly. LUNGS: Clear to auscultation and percussion. Good air entry. CARDIOVASCULAR: S1, S2 heard. No gallop, no murmur, no rub. Apical impulse in left fifth intercostal space and midclavicular line. ABDOMEN: Soft and benign. No hepatosplenomegaly. No guarding, no rigidity. Hernial orifices are normal. EXTREMITIES: Good pedal pulses. No pedal edema. Chronic ulcers on the left leg on the lateral aspect. LABORATORY DATA: White count is 5200, H and H is 9.5 and 31.8, platelet count is 315,000. BUN and creatinine is 35 and 0.9, chloride is 114, bicarb is 12, total protein is 5.1, albumin is 2.1. ASSESSMENT AND PLAN: 1. Sepsis secondary to urinary tract infection and pyelonephritis. The patient was started on Rocephin, which is the best drug of choice for the urinary tract infection to cover both gram positives and gram negatives. Probably Escherichia coli infection. The patient is septic secondary to urinary tract infection. IV fluids. 2. Acute pyelonephritis. Continue IV Rocephin and IV fluids. Continue nephrostomy tube. 3. Insulin-dependent diabetes. Continue insulin and metformin. Coverage. 4. Hypertension. Continue clonidine 0.2 twice a day and also diltiazem 60 mg 4 times a day and IV hydralazine 10 mg every 2-3 hours p.r.n. for blood pressure more than 160/100 diastolic. 5. Gastroesophageal reflux disease. Continue pantoprazole 40 mg daily. 6. Depression. The patient is on Zoloft 50 mg once a day. 7. Hyperlipidemia. Simvastatin 40 mg once a day. 8. Deep venous thrombosis prophylaxis. Lovenox 40 mg subcutaneous daily. JOB# [id number] VSM/NTS
== END 2017-01-04 22:18 | DRG 872 ==
LOC: CATHLABREC 10:36 → 3A 14:33 → 3B-SURG 14:55
PROVIDERS: ADMIT Internal Medicine; ATTEND Internal Medicine
PROC: 0TP5X0Z Removal of Drainage Device from Kidney, External Approach (ICD-10-PCS; principal; 2017-01-04)
PROC: 0T9330Z Drainage of Right Kidney Pelvis with Drainage Device, Percutaneous Approach (ICD-10-PCS; 2017-01-04)
PROC: BT111ZZ Fluoroscopy of Right Kidney using Low Osmolar Contrast (ICD-10-PCS; 2017-01-04)
PROC: 5A12012 Performance of Cardiac Output, Single, Manual (ICD-10-PCS; 2017-01-04)
DX: A41.9 Sepsis, unspecified organism (principal); N10 Acute pyelonephritis; E78.5 Hyperlipidemia, unspecified; I10 Essential (primary) hypertension; J44.9 Chronic obstructive pulmonary disease, unspecified; F32.9 Major depressive disorder, single episode, unspecified; E11.9 Type 2 diabetes mellitus without complications; K21.9 Gastro-esophageal reflux disease without esophagitis; Z82.49 Family history of ischemic heart disease and other diseases of the circulatory system; Z79.4 Long term (current) use of insulin
CPT/HCPCS: 36415; 50389; 50432; 80053; 85007; 85025; 87086; C1729; C1751; C1769; J0696; J1956; J2250; J3010; J7030; J7050; Q9967